=== PATIENT | male | born 1935 | race Caucasian/White ===

== ENCOUNTER 2017-02-01 17:40 | Inpatient (IN) | payer OTHER, BC ==
[~2017-02-01] VITALS: Ht 172.7 cm; Wt 105.0 kg
[~2017-02-01 17:40] MED LIST: ACET-1256 PO; ASPEC81 PO; ATV/1 PO; CETI10TA10 PO; CMD5 PO; CPR500 PO; DONE5TAB9 PO; FERR325T18 PO; FINA5TAB PO; FLM4 PO; FRS/40 PO; GLCSC750600 PO; LISI-725 PO; LPR25 PO; MEMA1CAP7 PO; MULT-506 PO; NRV5 PO; POTA10CA28 PO; RISP0.257 PO; ROPI0.25 PO; SERT50TA PO; SIMV20TA2 PO
[2017-02-01] MEDS ORDERED: CEFTRIAXONE SOD INJ 1 GM ADDVIAL IV STA (17:57)
--- NOTE | 2017-02-01 18:18 | DIAGNOSTIC IMAGING REPORT ---
CHEST ONE VIEW PORTABLE CLINICAL HISTORY: Fever. COMPARISON STUDY: Chest radiograph September 30, 2016. FINDINGS: There are median sternotomy wires. This study is compromised by motion artifact. Lung volumes are diminished. There is hazy left basilar opacity. There is pulmonary vascular congestion. IMPRESSION: 1. Study compromised by motion artifact. 2. Stable cardiomegaly. 3. Hazy left basilar opacity and possible small left pleural effusion. Radiographic follow-up is recommended. 4. Pulmonary vascular congestion without overt pulmonary edema. Electronically signed by: Tim Mitchell M.D. 02/01/2017 6:16 PM Dictated Date/Time: 02/01/2017 6:14 PM
[2017-02-01] MEDS ORDERED: ASPI81TA21 PO (18:21)
[2017-02-01] MEDS ORDERED: AMLO-110 PO (18:22)
[2017-02-01] MEDS ORDERED: METO25TA56 PO (18:22)
[2017-02-01] MEDS ORDERED: OXYC1CAP5 PO (18:38)
[2017-02-01] MEDS ORDERED: POTA20TA11 PO (18:38)
[2017-02-01] MEDS ORDERED: SERT1TAB68 PO (18:38)
[2017-02-01] MEDS ORDERED: FURO80TA63 PO (18:38)
[2017-02-01] MEDS ORDERED: WARF2TAB PO (18:38)
[2017-02-01] MEDS ORDERED: LSN40 PO (18:38)
[2017-02-01] MEDS ORDERED: WARF3TAB PO (18:38)
[2017-02-01] MEDS ORDERED: NTRGSL/4 UT (18:38)
[2017-02-01 18:43] LABS: BASO % 0.1 %; BASO ABS # 0.01 K/uL (0-0.2); COMPLETE YES; HEMATOCRIT 32.5 % (42-52); IG% 0.3 %; INR 2.3 (0.9-1.1); LYMPH % 4.3 %; LYMPH ABS # 0.66 K/uL (1.2-3.4); MEAN CELL VOLUME 92.6 fL (80-100); MEAN CORPUSCULAR HEMOGLOBIN 29.1 pg (25-34); MEAN CORPUSCULAR HGB CONC 31.4 g/dl (32-36); MEAN PLATELET VOLUME 9.9 fL (7.4-10.4); MONO % 7.7 %; NEUT % 87.6 %; PLATELET COUNT 129 K/uL (130-400); PROTHROMBIN TIME (PATIENT) 25.1 SECONDS (9.0-12.0); RED BLOOD COUNT 3.51 M/uL (4.7-6.1); WHITE BLOOD COUNT 15.31 K/uL (4.8-10.8)
[2017-02-01 18:44] LABS: ISTAT CREATININE 1.2 mg/dl (0.6-1.3); ISTAT HEMOGLOBIN 10.9 g/dl (14.0-18.0); ISTAT IONIZED CALCIUM 1.06 mmol/l (1.12-1.32)
--- NOTE | 2017-02-01 18:49 | EMERGENCY ROOM VISIT NOTE ---
History Report prepared by Brandie: Adeline Nelson Under the Supervision of: Pat GoldmanO. First contact with patient: 17:47 Chief Complaint: WEAKNESS Stated Complaint: WEAKNESS History of Present Illness The patient is a 81 year old male who presents to the Emergency Room with complaints of worsening weakness for the past couple of days. The patient is a resident at [facility]. Per staff there, the patient has had increased weakness and confusion. He has been much more tired than usual. Today he developed a fever with a temperature of 104. He has a chronic Carr in place secondary to BPH. His urine is cloudy today. He had a urine culture on 10/15 that grew out pansensitive E. coli and Klebsiella. The patient does not have any complaints at this time. He denies headache, chest pain, abdominal pain , and shortness of breath. His daughter states that he is typically much more alert and oriented. He was brought to the ED by ambulance. The history is limited secondary to the patient's dementia. Source of History: patient, family (daughter), fdc notes, nursing staff History Limited By: AMS Onset: a couple of days ago Position: other (global) Quality: other (weakness) Timing: worsening Associated Symptoms: + fevers, + urinary symptoms (cloudy urine), No SOB, No abdominal pain, No chest pain, No headache Review of Systems ROS is limited secondary to the patient's AMS. Past Medical & Surgical Medical Problems: (1) Alzheimers disease (2) Anemia in CKD (chronic kidney disease) (3) Anxiety (4) BPH w urinary obs/LUTS (5) CAD (coronary artery disease) (6) CKD (chronic kidney disease), stage III (7) Heart failure (8) HTN (hypertension) (9) Hyperlipidemia (10) Malignant neoplasm prostate (11) Mitral regurgitation (12) Osteoarthritis (13) Parkinsonism (14) Pneumonia (15) UTI (urinary tract infection) (16) Vascular dementia (17) Weakness Surgical Problems: (1) Hx of CABG (2) S/P coronary artery stent placement Family History Non-pertinent due to advanced age. Social History Smoking Status: Never Smoker Alcohol Use: none Drug Use: none Marital Status: Housing Status: assisted living Occupation Status: retired Current/Historical Medications Scheduled Acetaminophen (Tylenol), 1,000 MG PO TID Amlodipine (Norvasc), 5 MG PO QAM Aspirin Enteric Coated (Ecotrin Or Generic), 81 MG PO QAM Donepezil HCl (Aricept), 10 MG PO QPM Ferrous Gluconate (Ferrous Gluconate), 324 MG PO DAILY @ 1000 Finasteride (Proscar), 5 MG PO QPM Furosemide (Lasix), 40 MG PO DAILY AT 1400 Furosemide (Lasix), 80 MG PO QAM Lisinopril (Lisinopril), 40 MG PO QAM Lorazepam (Ativan), 1 MG PO DAILY AT 1600 Memantine Hcl (Namenda Xr), 28 MG PO QPM Metoprolol Tartrate (Lopressor) (Lopressor), 12.5 MG PO BID Multivitamin (Multivitamin), 1 TAB PO QAM Oxycodone Hcl (Oxycodone Hcl), 5 MG PO Q8 Potassium Chloride Microencaps (Potassium Chloride Cr), 20 MEQ PO TID Risperidone (Risperdal), 0.25 MG PO BID Ropinirole (Requip), 2 TABS PO TID [id number] Sertraline Hcl (Zoloft), 100 MG PO QAM Simvastatin (Zocor), 20 MG PO DAILY AT 1600 Warfarin Sodium (Coumadin), 2 MG PO QPM AT 2100 Warfarin Sodium (Coumadin), 3 MG PO QPM AT 2100 Scheduled PRN Nitroglycerin (Nitrostat), 0.4 MG UT PRN PRN for Chest Pain Allergies Coded Allergies: No Known Allergies (Verified , 02/01/17) Physical Exam Vital Signs Date Time Temp Pulse Resp B/P Pulse Ox O2 Delivery O2 Flow Rate FiO2 02/01/17 18:48 38.2 79 28 119/81 98 Nasal Cannula 2.0 02/01/17 18:10 87 02/01/17 17:50 91 Room Air 02/01/17 17:47 37.4 92 26 132/75 91 Room Air Physical Exam GENERAL: alert, sitting up in bed, chronically ill-appearing, disheveled, well nourished, no distress, non-toxic EYE EXAM: normal conjunctiva, PERRL and EOM's intact OROPHARYNX: no exudate, no erythema, lips, buccal mucosa, and tongue normal and mucous membranes are moist NECK: supple, no nuchal rigidity, no adenopathy, non-tender LUNGS: Clear to auscultation. Normal chest wall mechanics HEART: Irregularly irregular, no murmurs, S1 normal and S2 normal ABDOMEN: abdomen soft, distended, non-tender, normo-active bowel sounds, no masses, no rebound or guarding. BACK: Back is symmetrical on inspection and there is no deformity, no midline tenderness, no CVA tenderness. SKIN: no rashes and no bruising UPPER EXTREMITIES: upper extremities are grossly normal. No focal deficit with flexion or extension. LOWER EXTREMITIES: No pitting edema. Able to plantarflex and dorsiflex the toes NEURO EXAM: Alert, oriented to person but not place or time. Cranial nerves II- XII intact, normal speech, no weakness of arms, no weakness of legs. No drift. Finger to nose intact. Gross sensation intact. Medical Decision & Procedures ER Provider Diagnostic Interpretation: Radiology results as stated below per my review and the radiologist interpretation: CHEST ONE VIEW PORTABLE CLINICAL HISTORY: Fever. COMPARISON STUDY: Chest radiograph September 30, 2016. FINDINGS: There are median sternotomy wires. This study is compromised by motion artifact. Lung volumes are diminished. There is hazy left basilar opacity. There is pulmonary vascular congestion. IMPRESSION: 1. Study compromised by motion artifact. 2. Stable cardiomegaly. 3. Hazy left basilar opacity and possible small left pleural effusion. Radiographic follow-up is recommended. 4. Pulmonary vascular congestion without overt pulmonary edema. Electronically signed by: Tim Mitchell M.D. 02/01/2017 6:16 PM Dictated Date/Time: 02/01/2017 6:14 PM Laboratory Results 02/01/17 18:15 Red Blood Count 3.51, Mean Corpuscular Volume 92.6, Mean Corpuscular Hemoglobin 29.1, Mean Corpuscular Hemoglobin Concent 31.4, Mean Platelet Volume 9.9, Neutrophils (%) (Auto) 87.6, Lymphocytes (%) (Auto) 4.3, Monocytes (%) (Auto) 7.7, Eosinophils (%) (Auto) 0.0, Basophils (%) (Auto) 0.1, Neutrophils # (Auto) 13.41, Lymphocytes # (Auto) 0.66, Monocytes # (Auto) 1.18, Eosinophils # (Auto) 0.00, Basophils # (Auto) 0.01 4/5/17 18:15 Test 02/01/17 18:15 02/01/17 18:27 02/01/17 18:31 02/01/17 18:58 White Blood Count 15.31 K/uL (4.8-10.8) Red Blood Count 3.51 M/uL (4.7-6.1) Hemoglobin 10.2 g/dL (14.0-18.0) Hematocrit 32.5 % (42-52) Mean Corpuscular Volume 92.6 fL (80-100) Mean Corpuscular Hemoglobin 29.1 pg (25-34) Mean Corpuscular Hemoglobin Concent 31.4 g/dl (32-36) Platelet Count 129 K/uL (130-400) Mean Platelet Volume 9.9 fL (7.4-10.4) Neutrophils (%) (Auto) 87.6 % Lymphocytes (%) (Auto) 4.3 % Monocytes (%) (Auto) 7.7 % Eosinophils (%) (Auto) 0.0 % Basophils (%) (Auto) 0.1 % Neutrophils # (Auto) 13.41 K/uL (1.4-6.5) Lymphocytes # (Auto) 0.66 K/uL (1.2-3.4) Monocytes # (Auto) 1.18 K/uL (0.11-0.59) Eosinophils # (Auto) 0.00 K/uL (0-0.5) Basophils # (Auto) 0.01 K/uL (0-0.2) RDW Standard Deviation 57.9 fL (36.4-46.3) RDW Coefficient of Variation 17.0 % (11.5-14.5) Immature Granulocyte % (Auto) 0.3 % Immature Granulocyte # (Auto) 0.05 K/uL (0.00-0.02) Prothrombin Time 25.1 SECONDS (9.0-12.0) Prothromb Time International Ratio 2.3 (0.9-1.1) Est Creatinine Clear Calc Drug Dose 46.0 ml/min Estimated GFR () 49.5 Estimated GFR (Non- 42.7 BUN/Creatinine Ratio 15.9 (10-20) Calcium Level 8.3 mg/dl (8.5-10.1) Magnesium Level 2.1 mg/dl (1.8-2.4) Total Bilirubin 0.6 mg/dl (0.2-1) Direct Bilirubin 0.2 mg/dl (0-0.2) Aspartate Amino Transf (AST/SGOT) 19 U/L (15-37) Alanine Aminotransferase (ALT/SGPT) 30 U/L (12-78) Alkaline Phosphatase 74 U/L (45-117) Total Creatine Kinase 31 U/L (39-308) Creatine Kinase MB < 0.5 ng/ml (0.5-3.6) Creatine Kinase MB Ratio (0-3.0) Troponin I 0.035 ng/ml (0-0.045) Total Protein 7.8 gm/dl (6.4-8.2) Albumin 2.6 gm/dl (3.4-5.0) Bedside Hemoglobin 10.9 g/dl (14.0-18.0) Bedside Hematocrit 32 % (42-52) Bedside Sodium 145 mEq/L (135-144) Bedside Potassium 3.3 mEq/L (3.3-5.0) Bedside Chloride 102 mEq/L (101-112) Bedside Total CO2 25 mEq/l (24-31) Anion Gap 23.0 mmol/L (16-25) Bedside Blood Urea Nitrogen 23 mg/dl (7-18) Bedside Creatinine 1.2 mg/dl (0.6-1.3) Bedside Glucose (other) 224 mg/dl (70-99) Bedside Ionized Calcium (Bere) 1.06 mmol/l (1.12-1.32) Bedside Lactic Acid Venous 2.72 mmol/L (0.90-1.70) Urine Color YELLOW Urine Appearance CLOUDY (CLEAR) Urine pH 5.0 (4.5-7.5) Urine Specific Linn 1.018 (1.000-1.030) Urine Protein TRACE (NEG) Urine Glucose (UA) NEG (NEG) Urine Ketones NEG (NEG) Urine Occult Blood 2+ (NEG) Urine Nitrite NEG (NEG) Urine Bilirubin NEG (NEG) Urine Urobilinogen NEG (NEG) Urine Leukocyte Esterase LARGE (NEG) Urine WBC (Auto) >30 /hpf (0-5) Urine RBC (Auto) 5-10 /hpf (0-4) Urine Hyaline Casts (Auto) 10-30 /lpf (0-5) Urine Epithelial Cells (Auto) 5-10 /lpf (0-5) Urine Bacteria (Auto) 2+ (NEG) Urine Pathogenic Casts /lpf (0) Urine Mucus PRESENT (NONE PRSENT) Laboratory results per my review. Medications Administered Medications (Trade) Dose Ordered Sig/María Route Start Time Stop Time Status Last Admin Dose Admin Ceftriaxone Sodium (Rocephin Inj) 1 gm NOW STAT IV 02/01/17 17:57 02/01/17 17:59 DC 02/01/17 18:47 1 GM Levofloxacin (Levaquin / D5W) 750 mg NOW ONCE IV 02/01/17 19:30 02/01/17 19:31 DC 02/01/17 19:56 750 MG Acetaminophen 650 mg 650 mg NOW STAT CA 02/01/17 20:21 02/01/17 20:22 DC 02/01/17 21:15 650 MG Sodium Chloride (Nss 1000ml) 1,000 ml @ 75 mls/hr [id number] IV 02/01/17 20:13 03/03/17 20:12 02/01/17 23:41 75 MLS/HR ECG Indication: altered mental status, weakness Rate (beats per minute): 86 Rhythm: atrial fibrillation Findings: RBBB, ST depression (Lateral), left axis deviation ED Course ED COURSE: Vital signs were reviewed and showed hypoxic. The patients medical record was reviewed The above diagnostic studies were performed and reviewed. ED treatments and interventions as stated above. 1746: The patient was evaluated in room C7. A complete history and physical examination was performed. 1756: Rocephin 1 gm IV 1806: I reassessed the patient at this time. His daughter was at the bedside. She states that he is normally able to feed himself and is typically much more interactive. 1815: I updated the patient and his daughter. 1921: I spoke with Dr. Cruz. We discussed the patient's results and treatment plan. The patient will be evaluated by the [facility] for further management. 1929: Levofloxacin 750 mg IV 1931: Upon reevaluation, the patient is resting comfortably. I discussed my findings with the patient's daughter and she understands and agrees with the treatment plan. Based on the patients age, coexisting illnesses, exam and lab findings the decision to treat as an inpatient was made. The patient remained stable while under my care. The patient will be evaluated for further management. Medical Decision Differential diagnosis: Etiologies such as viral syndrome, otitis, pharyngitis, pneumonia, influenza, meningitis, urinary tract infection, sepsis, bacteremia, as well as others were entertained. Patient is an 81-year-old male who presents the ER from an assisted living facility for weakness and lethargy. Upon presentation he is found to be hypoxic. Daughter notes that he is much more lethargic than usual. She notes that at the fdc he has been weak, unable to feed himself and hypoxic. Labs show a leukocytosis of 15,000 along with a lactate of 2.7. BMP shows mild hypokalemia. LFTs along with bilirubin was unremarkable. Troponin was detectable but not positive. Lactate was 2.7. INR was 2.3. UA was clearly infected with a chronic indwelling Carr. Chest x-ray did suggest a consolidation. He was covered with Rocephin and Levaquin. Patient was given a bolus normal saline. He remained stable in the ER and was admitted to internal medicine for sepsis. CT head was negative. Consults Time Called: 1918 Consulting Physician: Dr. Cruz Returned Call: [address] Cruz. We discussed the patient's results and treatment plan. The patient will be evaluated by the [facility] for further management. Impression Primary Impression: Sepsis Additional Impressions: UTI (urinary tract infection) Pneumonia Scribe Attestation The scribe's documentation has been prepared under my direction and personally reviewed by me in its entirety. I confirm that the note above accurately reflects all work, treatment, procedures, and medical decision making performed by me. Departure Information Dispostion Being Evaluated By Hospitalist Referrals Earl Lombardo MD (PCP) Patient Instructions My [facility] Problem Qualifiers Primary Impression: Sepsis Sepsis type: sepsis due to unspecified organism Qualified Codes: A41.9 - Sepsis, unspecified organism Additional Impressions: UTI (urinary tract infection) Urinary tract infection type: catheter-associated UTI Indwelling urinary catheter type: unspecified Encounter type: initial encounter Qualified Codes : T83.511A - Infection and inflammatory reaction due to indwelling urethral catheter, initial encounter; N39.0 - Urinary tract infection, site not specified Pneumonia Pneumonia type: due to unspecified organism Laterality: unspecified laterality Lung location: unspecified part of lung Qualified Codes: J18.9 - Pneumonia, unspecified organism
[2017-02-01 18:53] LABS: ALT/SGPT 30 U/L (12-78); AST/SGOT 19 U/L (15-37); BLOOD UREA NITROGEN 24 mg/dl (7-18); BUN/CREATININE RATIO 15.9 (10-20); CALCIUM 8.3 mg/dl (8.5-10.1); CARBON DIOXIDE 28 mmol/L (21-32); CHLORIDE 107 mmol/L (98-107); GLUCOSE 221 mg/dl (70-99); MAGNESIUM 2.1 mg/dl (1.8-2.4); POTASSIUM 3.3 mmol/L (3.5-5.1); SODIUM 145 mmol/L (136-145)
[2017-02-01 18:58] LABS: ALKALINE PHOSPHATASE 74 U/L (45-117)
[2017-02-01] MEDS ORDERED: ACETAMINOPHEN 500 MG TAB PO STA (19:05)
[2017-02-01 19:08] LABS: MANUAL MICROSCOPIC REQUIRED? NO; REVIEW REQ? YES; URINE APPEARANCE CLOUDY (CLEAR); URINE BILIRUBIN NEG (NEG); URINE COLOR YELLOW; URINE NITRITE NEG (NEG); URINE SPECIFIC GRAVITY 1.018 (1.000-1.030); UROBILINOGEN NEG (NEG); ZZURINE CULT IF INDIC CATH YES
[2017-02-01 19:21] LABS: URINE MUCUS PRESENT (NONE PRSENT)
[2017-02-01] MEDS ORDERED: LEVAQUIN 750MG / 150ML D5W IV ONE (19:30)
[2017-02-01] MEDS ORDERED: ONDANSETRON INJ 2 MG/ML 2 ML VIAL IV PRN (20:15)
[2017-02-01] MEDS ORDERED: MAGNESIUM HYDROXIDE SUSP 30 ML UDC PO PRN (20:15)
[2017-02-01] MEDS ORDERED: ALUMINUM/MAGNESIUM/SIMETH (MAALOX MAX) 30 ML UDC PO PRN (20:15)
[2017-02-01] MEDS ORDERED: NITROGLYCERIN 0.4 MG SL PER TAB CHARGE SL PRN (20:15)
[2017-02-01] MEDS ORDERED: POLYETHYLENE (MIRALAX) 17 GM PACK PO PRN (20:15)
[2017-02-01] MEDS ORDERED: ACETAMINOPHEN 650 MG SUPP PR STA (20:21)
[2017-02-01] MEDS: METOPROLOL TARTRATE 25 MG TAB PO SCH (21:00)
[2017-02-01] MEDS ORDERED: VANCOMYCIN CONSULT ACTIVE PRN (21:00)
[2017-02-01] MEDS: ROPINIROLE HCL 0.25 MG TAB PO SCH (21:00)
[2017-02-01] MEDS: FINASTERIDE 5 MG TAB PO SCH (21:00)
[2017-02-01] MEDS ORDERED: PIPERACILLIN/TAZOBACTAM 4.5 GM/100ML D5W IV SCH (21:00)
[2017-02-01] MEDS ORDERED: PIPERACILL/TAZOBAC CONSULT ACTIVE PRN (21:00)
[2017-02-01] MEDS: POTASSIUM CHLORIDE 20 MEQ TABCR PO SCH (21:00)
[2017-02-01] MEDS ORDERED: VANCOMYCIN INJ 1,000 MG in SODIUM CHLORIDE 0.9% 250ML 250 ML IV SCH (21:00)
[2017-02-01] MEDS: DONEPEZIL HCL 5 MG TAB PO SCH (21:00)
[2017-02-01] MEDS: RISPERIDONE 0.5 MG TAB PO SCH (21:00)
--- NOTE | 2017-02-01 21:02 | History and Physical ---
History & Physical Date & Time of Service: Feb 01, 2017 at 20:49 Chief Complaint: Weakness Primary Care Physician: Earl Lombardo MD History of Present Illness Source: family This is an 81 y/o M with a pmh of HTN, CAD s/p CABG, Vascular dementia, questionable parkinsons, sleep apnea, AFib, who presents from [facility] after being found with altered mental status. History is obtained entirely from Family and chart review. They report that he has recently been undergoing physical therapy at his residence but was discharged due to concerns of decline in mental status and inability to participate in the activities. Over the last few days, he has stopped feeding himself and is disoriented. There was also reports by nurses about shortness of breath. Supposedly he had a U/a done last month that was infected vs. contaminated. But because he was asymptomatic, he was not treated. Yesterday he was noted by his (who also lives at [place] with him) to be sitting in his chair, somnolent and had a temp of 102. She caleld her daughter and decided he should be brought to the ER. He has a chronic Carr for about 2 years now after losing ability to urinate They also report that he has Prostate cancer for several years but did not pursue treatment. No one has been following him for this. ROS unobtainable from patient. Past Medical/Surgical History Medical Problems: (1) Alzheimers disease Status: Chronic (2) Anemia in CKD (chronic kidney disease) Status: Chronic (3) Anxiety Status: Chronic (4) BPH w urinary obs/LUTS Status: Chronic (5) CAD (coronary artery disease) Status: Chronic (6) CKD (chronic kidney disease), stage III Status: Chronic (7) Heart failure Permanent Comment: EF 55-60% per echo 03/2014, grade 1 diastolic dysfunction Status: Chronic (8) HTN (hypertension) Status: Chronic (9) Hyperlipidemia Status: Chronic (10) Malignant neoplasm prostate Status: Chronic (11) Mitral regurgitation Permanent Comment: mild-mod per echo 03/2014 Status: Chronic (12) Osteoarthritis Status: Chronic (13) Parkinsonism Status: Chronic (14) Vascular dementia Status: Chronic Surgical Problems: (1) Hx of CABG Status: Chronic (2) S/P coronary artery stent placement Permanent Comment: stent to RCA Status: Chronic Social History Smoking Status: Never Smoker Drug Use: none Marital Status: Housing status: lives with significant other Occupational Status: retired Immunizations History of Influenza Vaccine: Yes Influenza Vaccine Date: Aug 07, 2012 History of Tetanus Vaccine?: Unknown History of Pneumococcal: No History of Hepatitis B Vaccine: Unknown Multi-Drug Resistant Organisms History of MDRO: No Allergies Coded Allergies: No Known Allergies (Verified , 02/01/17) Home Medications Scheduled Acetaminophen (Tylenol), 1,000 MG PO TID Amlodipine (Norvasc), 5 MG PO QAM Aspirin Enteric Coated (Ecotrin Or Generic), 81 MG PO QAM Donepezil HCl (Aricept), 10 MG PO QPM Ferrous Gluconate (Ferrous Gluconate), 324 MG PO DAILY @ 1000 Finasteride (Proscar), 5 MG PO QPM Furosemide (Lasix), 40 MG PO DAILY AT 1400 Furosemide (Lasix), 80 MG PO QAM Lisinopril (Lisinopril), 40 MG PO QAM Lorazepam (Ativan), 1 MG PO DAILY AT 1600 Memantine Hcl (Namenda Xr), 28 MG PO QPM Metoprolol Tartrate (Lopressor) (Lopressor), 12.5 MG PO BID Multivitamin (Multivitamin), 1 TAB PO QAM Oxycodone Hcl (Oxycodone Hcl), 5 MG PO Q8 Potassium Chloride Microencaps (Potassium Chloride Cr), 20 MEQ PO TID Risperidone (Risperdal), 0.25 MG PO BID Ropinirole (Requip), 2 TABS PO TID [id number] Sertraline Hcl (Zoloft), 100 MG PO QAM Simvastatin (Zocor), 20 MG PO DAILY AT 1600 Warfarin Sodium (Coumadin), 2 MG PO QPM AT 2100 Warfarin Sodium (Coumadin), 3 MG PO QPM AT 2100 Scheduled PRN Nitroglycerin (Nitrostat), 0.4 MG UT PRN PRN for Chest Pain Review of Systems ROS unobtainable Physical Exam Vital Signs Date Time Temp Pulse Resp B/P Pulse Ox O2 Delivery O2 Flow Rate FiO2 02/01/17 18:48 38.2 79 28 119/81 98 Nasal Cannula 2.0 02/01/17 18:10 87 02/01/17 17:50 91 Room Air 02/01/17 17:47 37.4 92 26 132/75 91 Room Air General Appearance: no apparent distress, + pertinent finding (patient is arousable to verbal stimuli but doesnt verbalize much) Head: normocephalic, atraumatic Eyes: PERRL, EOMI Neck: supple, no adenopathy, thyroid normal Respiratory/Chest: no respiratory distress, no accessory muscle use, + decreased breath sounds, + crackles Cardiovascular: no edema, no murmur, normal peripheral pulses, + irregularly irregular Abdomen/GI: normal bowel sounds, non tender, soft Extremities/Musculoskelatal: no pedal edema Neurologic/Psych: + disoriented, + pertinent finding (unable to assess) Diagnostics Laboratory Results Results Past 24 Hours Test 02/01/17 18:15 02/01/17 18:27 02/01/17 18:31 02/01/17 18:58 Range/Units White Blood Count 15.31 4.8-10.8 K/uL Red Blood Count 3.51 4.7-6.1 M/uL Hemoglobin 10.2 14.0-18.0 g/dL Hematocrit 32.5 42-52 % Mean Corpuscular Volume 92.6 80-100 fL Mean Corpuscular Hemoglobin 29.1 25-34 pg Mean Corpuscular Hemoglobin Concent 31.4 32-36 g/dl Platelet Count 129 130-400 K/uL Mean Platelet Volume 9.9 7.4-10.4 fL Neutrophils (%) (Auto) 87.6 % Lymphocytes (%) (Auto) 4.3 % Monocytes (%) (Auto) 7.7 % Eosinophils (%) (Auto) 0.0 % Basophils (%) (Auto) 0.1 % Neutrophils # (Auto) 13.41 1.4-6.5 K/uL Lymphocytes # (Auto) 0.66 1.2-3.4 K/uL Monocytes # (Auto) 1.18 0.11-0.59 K/uL Eosinophils # (Auto) 0.00 0-0.5 K/uL Basophils # (Auto) 0.01 0-0.2 K/uL RDW Standard Deviation 57.9 36.4-46.3 fL RDW Coefficient of Variation 17.0 11.5-14.5 % Immature Granulocyte % (Auto) 0.3 % Immature Granulocyte # (Auto) 0.05 0.00-0.02 K/uL Prothrombin Time 25.1 9.0-12.0 SECONDS Prothromb Time International Ratio 2.3 0.9-1.1 Sodium Level 145 136-145 mmol/L Potassium Level 3.3 3.5-5.1 mmol/L Chloride Level 107 98-107 mmol/L Carbon Dioxide Level 28 21-32 mmol/L Anion Gap 10.0 23.0 16-25 mmol/L Blood Urea Nitrogen 24 7-18 mg/dl Creatinine 1.50 0.60-1.40 mg/dl Est Creatinine Clear Calc Drug Dose 46.0 ml/min Estimated GFR () 49.5 Estimated GFR (Non- 42.7 BUN/Creatinine Ratio 15.9 10-20 Random Glucose 221 70-99 mg/dl Calcium Level 8.3 8.5-10.1 mg/dl Magnesium Level 2.1 1.8-2.4 mg/dl Total Bilirubin 0.6 0.2-1 mg/dl Direct Bilirubin 0.2 0-0.2 mg/dl Aspartate Amino Transf (AST/SGOT) 19 15-37 U/L Alanine Aminotransferase (ALT/SGPT) 30 12-78 U/L Alkaline Phosphatase 74 45-117 U/L Total Creatine Kinase 31 39-308 U/L Creatine Kinase MB < 0.5 0.5-3.6 ng/ml Creatine Kinase MB Ratio 0-3.0 Troponin I 0.035 0-0.045 ng/ml Total Protein 7.8 6.4-8.2 gm/dl Albumin 2.6 3.4-5.0 gm/dl Bedside Hemoglobin 10.9 14.0-18.0 g/dl Bedside Hematocrit 32 42-52 % Bedside Sodium 145 135-144 mEq/L Bedside Potassium 3.3 3.3-5.0 mEq/L Bedside Chloride 102 101-112 mEq/L Bedside Total CO2 25 24-31 mEq/l Bedside Blood Urea Nitrogen 23 7-18 mg/dl Bedside Creatinine 1.2 0.6-1.3 mg/dl Bedside Glucose (other) 224 70-99 mg/dl Bedside Ionized Calcium (Bere) 1.06 1.12-1.32 mmol/l Bedside Lactic Acid Venous 2.72 0.90-1.70 mmol/L Urine Color YELLOW Urine Appearance CLOUDY CLEAR Urine pH 5.0 4.5-7.5 Urine Specific [place] 1.018 1.000-1.030 Urine Protein TRACE NEG Urine Glucose (UA) NEG NEG Urine Ketones NEG NEG Urine Occult Blood 2+ NEG Urine Nitrite NEG NEG Urine Bilirubin NEG NEG Urine Urobilinogen NEG NEG Urine Leukocyte Esterase LARGE NEG Urine WBC (Auto) >30 0-5 /hpf Urine RBC (Auto) 5-10 0-4 /hpf Urine Hyaline Casts (Auto) 10-30 0-5 /lpf Urine Epithelial Cells (Auto) 5-10 0-5 /lpf Urine Bacteria (Auto) 2+ NEG Urine Pathogenic Casts 0 /lpf Urine Mucus PRESENT NONE PRSENT Microbiology Results 02/01/17 Blood Culture, Received Pending 02/01/17 Blood Culture, Received Pending 02/01/17 Urine Culture, Received Pending Impression Assessment and Plan Metabolic encephalopathy likely 2/2 UTI + HAP/Aspiration pneumonia (meets sirs criteria) However, will do a Head Ct to rule out acute hemorrhage as a cause of AMS Zosyn, Vancomycin IV NSS UC, BC, SC pending X-ray with left basilar opacity Failed Dysphagia screen Speech eval- i suspect there is a component of dementia and will need an eval for dietary recommendations going forward - michael if aspiration pneumonia Keep NPO until patient is more alert Aspiration precautions Hypokalemia 20 meq- replaced Recheck AM Ambulatory dysfunction PT OT Afib, rate controlled Continue Coumadin, lopressor Daily inr HTN: Continue amlodipine, Lisinopril, Lopressor Chronic pain Hold Oxycodone with AMS Dementia Hold Memantine, continue Donepazil, Risperidone RLS: Continue Requip Depression/Anxiety Continue Sertraline Hold home ativan BPH Continue finasteride DVT proph Coumadin Code: DNR VTE Prophylaxis VTE Risk Assessment Done? Y/N: Yes Risk Level: Moderate Assessment and Plan Attending Addendum: I have physically seen and examined this patient, have directed their medical care, have supervised the medical residents activities, and agree with the H&P as noted above, with the following changes: The patient is awake to verbal stimuli, but remains disoriented, lying in bed and in no acute distress. HEENT--PERRL, EOMI, mucous membranes and oropharynx dry. Neck--supple, no JVD or bruits, thyroid normal, trachea midline, no adenopathy. Heart--irregularly irregular, no murmurs, rubs or gallops. Lungs--decreased breath sounds with crackles at the bases bilaterally, no respiratory distress, no accessory muscle use. Abdomen--normal bowel sounds and soft, nontender and nondistended, no hernias or masses, no organomegaly. Extremities--no cyanosis, clubbing or edema. There are good distal pulses b/l. Dermatologic--normal skin turgor, normal color, warm and dry, no abnormal lymph nodes, no rash. Neurologic--cranial nerves II through XII grossly intact, motor and sensory examination normal. Rheumatologic--normal range of motion, nontender, muscles and joints. Psychiatric--disoriented Assessment and Plan: Metabolic encephalopathy--infectious disease: UTI, aspiration pneumonia left lower lobe, SIRS. We'll place on vancomycin IV per renal dosing, Zosyn 3.375 mg IV every 8 hours, IV fluids, follow urine culture, sputum culture and blood culture. Patient did fail his dysphagia screen in the ED so will be nothing by mouth. We'll consult PT, OT and speech therapy. Atrial fibrillation/hypertension-we will hold amlodipine, lisinopril and Lopressor due to nothing by mouth status. Place on Lopressor 5 mg IV every 4 hours hold parameters. Dementia/anxiety/depression--hold memantine, donepezil and risperidone. We'll have lorazepam 0.5 mg IV every 4 hours when necessary available until taking by mouth. BPH--hold finasteride until taking by mouth.
[2017-02-01 21:30] VITALS: BP 116/65; PULSE 74; TEMP 37.2; O2SAT 96; Ht 172.7 cm; Wt 105.0 kg
[2017-02-01] MEDS ORDERED: VANCOMYCIN INJ 2,300 MG in SODIUM CHLORIDE 0.9% 500ML 500 ML IV SCH (21:30)
--- NOTE | 2017-02-01 21:54 | DIAGNOSTIC IMAGING REPORT ---
CT OF THE HEAD WITHOUT CONTRAST CLINICAL HISTORY: Altered mental status. COMPARISON STUDY: Head CT March 31, 2014 and MRI of the brain October 03, 2016. CT DOSE: 687.98 mGy.cm TECHNIQUE: Helical axial images of the head were obtained without IV contrast. Automated exposure control was utilized for the study. FINDINGS: No acute intracranial hemorrhage, midline shift or mass effect is present. Ventricular system is stable. Basilar cisterns are patent. There are no extra-axial collections. Moderate white matter hypodensity suggests small vessel disease. There are no findings to suggest acute dural sinus thrombosis or acute territorial infarct. There is no calvarial fracture. Visualized portions of the sinuses and the mastoid air cells are clear. IMPRESSION: No acute intracranial findings. Electronically signed by: Tim Mitchell M.D. 02/01/2017 9:53 PM Dictated Date/Time: 02/01/2017 9:51 PM
[2017-02-01 23:15] VITALS: BP 113/65; PULSE 75; TEMP 36.9; O2SAT 96
[2017-02-01] MEDS: POTASSIUM CHLR 10 MEQ / WTR 10 MEQ in PREMIXED WATER 100 ML IV SCH (23:41)
[2017-02-01] MEDS: SODIUM CHLORIDE 0.9% 1000ML 1,000 ML IV SCH (23:41)
[2017-02-02] VITALS (7 sets, daily range): BP systolic 121–174; BP diastolic 71–91; PULSE 68–93; TEMP 36.6–37.8; O2SAT 93–98
[2017-02-02] MEDS: POTASSIUM CHLR 10 MEQ / WTR 10 MEQ in PREMIXED WATER 100 ML IV SCH (01:28)
[2017-02-02] MEDS: PIPERACILL/TAZOBAC IV 4.5 GM in DEXTROSE 5% 100ML 100 ML IV SCH ×3 (01:28→18:28)
[2017-02-02 06:34] LABS: INR 2.3 (0.9-1.1); PROTHROMBIN TIME (PATIENT) 25.7 SECONDS (9.0-12.0)
[2017-02-02 06:48] LABS: BUN/CREATININE RATIO 19.5 (10-20); CALCIUM 8.3 mg/dl (8.5-10.1); CREATININE 1.3 mg/dl (0.60-1.40); POTASSIUM 3.6 mmol/L (3.5-5.1)
[2017-02-02 06:53] LABS: FERRITIN 328.3 ng/ml (8.0-388.0)
[2017-02-02 07:18] LABS: BASO % 0.1 %; BASO ABS # 0.01 K/uL (0-0.2); COMPLETE YES; EOS % 0.1 %; HEMATOCRIT 32.5 % (42-52); IG% 0.2 %; LYMPH % 10.7 %; LYMPH ABS # 1.33 K/uL (1.2-3.4); MEAN CELL VOLUME 92.9 fL (80-100); MEAN CORPUSCULAR HEMOGLOBIN 28.3 pg (25-34); MEAN CORPUSCULAR HGB CONC 30.5 g/dl (32-36); MEAN PLATELET VOLUME 10.3 fL (7.4-10.4); MONO % 12.1 %; NEUT % 76.8 %; PLATELET COUNT 122 K/uL (130-400)
--- NOTE | 2017-02-02 08:09 | Clinical Documentation Query ---
QUERY 1 OF [address] SANDS, "Meets SIRS criteria" cannot be coded to Sepsis In your clinical opinion is this patient being managed for: ( x ) Sepsis in the setting of UTI and pneumonia ( ) Other explanation of clinical findings (Please Explain) ( ) Unable to determine (Please Define) ( ) Need to Discuss ( ) Not Agree The medical record reflects the following clinical findings, treatment, and risk factors. Clinical Indicators: 81 yo male presenting with worsening weakness and confusion. Diagnosed with UTI and pneumonia. WBC 15.31, glucose 221(not diabetic). Reportedly Temp 104 at assisted living, ER VS 37.2-92-26, 132/75, 91% on RA. Noted in H/P to meet SIRS criteria Treatment: IV rocephin, IV levaquin, IV fluids, pending blood, urine and sputum cx, IV vancomycin, IV zosyn, O2 support, tele monitoring Risk Factors: age, pneumonia, UTI, chronic macario catheter QUERY 2 OF 3 In your clinical opinion is this patient being managed for: (x ) UTI likely/possibly due to chronic macario catheter ( ) Other explanation of clinical findings (Please Explain) ( ) Unable to determine (Please Define) ( ) Need to Discuss ( ) Not Agree The medical record reflects the following clinical findings, treatment, and risk factors. Clinical Indicators: UA LE+, WBC >30, bacteria 2+, noted to have had prior UTI (12/11/16) with Ecoli and klebsiella. Treatment: UA cx pending, IV Zosyn/Vancomycin/levaquin and rocephin, IV fluids Risk Factors: chronic macario catheter d/t BPH Considering the importance of preventing and tracking CAUTIs, if the patient has an indwelling catheter and a UTI, the provider should be queried regarding the cause of the UTI QUERY 3 OF 3 In your clinical opinion is this patient being managed for: ( ) Chronic diastolic CHF ( x ) Other explanation of clinical findings (Please Explain) ( ) Unable to determine (Please Define) ( ) Need to Discuss ( ) Not Agree The medical record reflects the following clinical findings, treatment, and risk factors. Clinical Indicators:H/P indicates pt with hx of chronic heart failure and 2014 ECHO with EF 55-60%, grade 1 diastolic dysfunction. Treatment: chronic tx with norvasc, lasix, lisinopril and lopressor Risk Factors: age, CKD stage III, HTN, CAD, A fib Severity-adjusted DRGs require coding specificity. "Congestive" heart failure is a non-specific diagnosis. Documentation should specify "acute vs. chronic" and "systolic vs. diastolic." Please clarify and document your clinical opinion in the progress notes and discharge summary. Terms such as "probable", "suspected", "likely", "questionable", "possible", or "still to be ruled out" are acceptable. IF IN AGREEMENT, YOU MUST DOCUMENT ABOVE DIAGNOSTIC STATEMENT IN DAILY PROGRESS NOTES AND DISCHARGE SUMMARY. This document is not part of the patient's record. Thank You, Carrie Quiroz, [phone]
[2017-02-02] MEDS ORDERED: WARFARIN SOD 2 MG TAB PO SCH (09:00)
[2017-02-02] MEDS ORDERED: WARFARIN SOD 3 MG TAB PO SCH (09:00)
[2017-02-02] MEDS: SIMVASTATIN 20 MG TAB PO SCH (11:10)
[2017-02-02] MEDS: RISPERIDONE 0.5 MG TAB PO SCH ×2 (11:10→19:58)
[2017-02-02] MEDS: SERTRALINE HCL 100 MG TAB PO SCH (11:10)
[2017-02-02] MEDS: LISINOPRIL 40 MG TAB PO SCH (11:11)
[2017-02-02] MEDS: FUROSEMIDE 80 MG TAB PO SCH (11:11)
[2017-02-02] MEDS: METOPROLOL TARTRATE 25 MG TAB PO SCH ×2 (11:11→19:53)
[2017-02-02] MEDS: AMLODIPINE BESYLATE 5 MG TAB PO SCH (11:11)
[2017-02-02] MEDS: POTASSIUM CHLORIDE 20 MEQ TABCR PO SCH ×3 (11:11→19:56)
[2017-02-02] MEDS: ASPIRIN 81 MG ECTAB PO SCH (11:12)
[2017-02-02] MEDS: FERROUS GLUCONATE 324 MG TAB PO SCH (11:12)
--- NOTE | 2017-02-02 13:30 | Progress Note ---
Subjective Date of Service: Feb 02, 2017. Subjective Pt evaluation today including: conversation w/ patient, physical exam, chart review No CP or SOB Problem List Medical Problems: (1) CHF (congestive heart failure) Status: Acute (2) New onset a-fib Status: Acute (3) Sepsis Status: Acute Review of Systems Respiratory: No cough, No dyspnea at rest, No dyspnea on exertion, No hemoptysis, No problem reported, No see HPI, No shortness of breath, No sputum, No wheezing Cardiac: No PND, No chest pain, No claudication, No edema, No orthopnea, No palpitations, No problem reported, No see HPI Abdomen: No GI bleeding, No constipation, No diarrhea, No nausea, No pain, No problem reported, No see HPI, No vomiting Medications Medications (Trade) Dose Ordered Sig/María Route Start Time Stop Time Status Last Admin Dose Admin Ceftriaxone Sodium (Rocephin Inj) 1 gm NOW STAT IV 02/01/17 17:57 02/01/17 17:59 DC 02/01/17 18:47 1 GM Levofloxacin (Levaquin / D5W) 750 mg NOW ONCE IV 02/01/17 19:30 02/01/17 19:31 DC 02/01/17 19:56 750 MG Acetaminophen 650 mg 650 mg NOW STAT TX 02/01/17 20:21 02/01/17 20:22 DC 02/01/17 21:15 650 MG Sodium Chloride 1,000 ml @ 75 mls/hr [id number] IV 02/01/17 20:13 03/03/17 20:12 02/01/17 23:41 75 MLS/HR Piperacillin Sod/ Tazobactam Sod 4.5 gm/Dextrose 120 ml @ 28.75 mls/ hr Q8H IV 02/02/17 02:00 02/11/17 23:59 02/02/17 01:28 28.75 MLS/HR Potassium Chloride/Prmx (Kcl 10 Meq / Wtr/Premixed Water) 100 ml @ 100 mls/hr Q1H IV 02/01/17 22:00 02/01/17 23:59 DC 02/02/17 01:28 100 MLS/HR Piperacillin Sod/ Tazobactam Sod 4.5 gm 4.5 gm 2100 IV 02/01/17 21:00 4/5/17 21:30 DC 02/01/17 22:00 4.5 GM Vancomycin HCl/ Sodium Chloride (Vancomycin Inj/ Nss 500ml) 546 ml @ 200 mls/hr 2130 IV 02/01/17 21:30 02/02/17 00:14 DC 02/01/17 22:04 200 MLS/HR Objective Vital Signs Date Time Temp Pulse Resp B/P Pulse Ox O2 Delivery O2 Flow Rate FiO2 02/02/17 07:13 36.6 77 20 144/81 98 Nasal Cannula 2.0 02/02/17 04:00 Nasal Cannula 3.0 02/02/17 03:05 36.8 74 20 121/71 97 Nasal Cannula 3.0 02/02/17 00:00 Nasal Cannula 3.0 02/01/17 23:15 36.9 75 24 113/65 96 Nasal Cannula 2.0 02/01/17 21:30 37.2 74 20 116/65 96 Nasal Cannula 2.0 02/01/17 21:00 38.4 90 32 126/77 97 Nasal Cannula 3.0 02/01/17 18:48 38.2 79 28 119/81 98 Nasal Cannula 2.0 02/01/17 18:10 87 02/01/17 17:50 91 Room Air 02/01/17 17:47 37.4 92 26 132/75 91 Room Air Physical Exam General Appearance: WD/WN, no apparent distress Eyes: normal inspection, PERRL ENT: normal ENT inspection, hearing grossly normal Neck: supple Respiratory/Chest: chest non-tender, lungs clear Cardiovascular: no edema, + irregularly irregular Abdomen: normal bowel sounds, non tender, soft Extremities: normal range of motion Neurologic/Psychiatric: medical lab scientist II-XII nml as tested, oriented x 3 Skin: normal color Laboratory Results Last 24 Hours Test 02/01/17 18:15 02/01/17 18:27 02/01/17 18:31 02/01/17 18:58 White Blood Count 15.31 K/uL Red Blood Count 3.51 M/uL Hemoglobin 10.2 g/dL Hematocrit 32.5 % Mean Corpuscular Volume 92.6 fL Mean Corpuscular Hemoglobin 29.1 pg Mean Corpuscular Hemoglobin Concent 31.4 g/dl Platelet Count 129 K/uL Mean Platelet Volume 9.9 fL Neutrophils (%) (Auto) 87.6 % Lymphocytes (%) (Auto) 4.3 % Monocytes (%) (Auto) 7.7 % Eosinophils (%) (Auto) 0.0 % Basophils (%) (Auto) 0.1 % Neutrophils # (Auto) 13.41 K/uL Lymphocytes # (Auto) 0.66 K/uL Monocytes # (Auto) 1.18 K/uL Eosinophils # (Auto) 0.00 K/uL Basophils # (Auto) 0.01 K/uL RDW Standard Deviation 57.9 fL RDW Coefficient of Variation 17.0 % Immature Granulocyte % (Auto) 0.3 % Immature Granulocyte # (Auto) 0.05 K/uL Prothrombin Time 25.1 SECONDS Prothromb Time International Ratio 2.3 Sodium Level 145 mmol/L Potassium Level 3.3 mmol/L Chloride Level 107 mmol/L Carbon Dioxide Level 28 mmol/L Anion Gap 10.0 mmol/L 23.0 mmol/L Blood Urea Nitrogen 24 mg/dl Creatinine 1.50 mg/dl Est Creatinine Clear Calc Drug Dose 46.0 ml/min Estimated GFR () 49.5 Estimated GFR (Non- 42.7 BUN/Creatinine Ratio 15.9 Random Glucose 221 mg/dl Calcium Level 8.3 mg/dl Magnesium Level 2.1 mg/dl Total Bilirubin 0.6 mg/dl Direct Bilirubin 0.2 mg/dl Aspartate Amino Transf (AST/SGOT) 19 U/L Alanine Aminotransferase (ALT/SGPT) 30 U/L Alkaline Phosphatase 74 U/L Total Creatine Kinase 31 U/L Creatine Kinase MB < 0.5 ng/ml Creatine Kinase MB Ratio Troponin I 0.035 ng/ml Total Protein 7.8 gm/dl Albumin 2.6 gm/dl Bedside Hemoglobin 10.9 g/dl Bedside Hematocrit 32 % Bedside Sodium 145 mEq/L Bedside Potassium 3.3 mEq/L Bedside Chloride 102 mEq/L Bedside Total CO2 25 mEq/l Bedside Blood Urea Nitrogen 23 mg/dl Bedside Creatinine 1.2 mg/dl Bedside Glucose (other) 224 mg/dl Bedside Ionized Calcium (Bere) 1.06 mmol/l Bedside Lactic Acid Venous 2.72 mmol/L Urine Color YELLOW Urine Appearance CLOUDY Urine pH 5.0 Urine Specific [place] 1.018 Urine Protein TRACE Urine Glucose (UA) NEG Urine Ketones NEG Urine Occult Blood 2+ Urine Nitrite NEG Urine Bilirubin NEG Urine Urobilinogen NEG Urine Leukocyte Esterase LARGE Urine WBC (Auto) >30 /hpf Urine RBC (Auto) 5-10 /hpf Urine Hyaline Casts (Auto) 10-30 /lpf Urine Epithelial Cells (Auto) 5-10 /lpf Urine Bacteria (Auto) 2+ Urine Pathogenic Casts /lpf Urine Mucus PRESENT Test 02/01/17 22:52 02/02/17 05:44 Lactic Acid Level 1.5 mmol/L White Blood Count 12.40 K/uL Red Blood Count 3.50 M/uL Hemoglobin 9.9 g/dL Hematocrit 32.5 % Mean Corpuscular Volume 92.9 fL Mean Corpuscular Hemoglobin 28.3 pg Mean Corpuscular Hemoglobin Concent 30.5 g/dl Platelet Count 122 K/uL Mean Platelet Volume 10.3 fL Neutrophils (%) (Auto) 76.8 % Lymphocytes (%) (Auto) 10.7 % Monocytes (%) (Auto) 12.1 % Eosinophils (%) (Auto) 0.1 % Basophils (%) (Auto) 0.1 % Neutrophils # (Auto) 9.52 K/uL Lymphocytes # (Auto) 1.33 K/uL Monocytes # (Auto) 1.50 K/uL Eosinophils # (Auto) 0.01 K/uL Basophils # (Auto) 0.01 K/uL RDW Standard Deviation 58.3 fL RDW Coefficient of Variation 17.2 % Immature Granulocyte % (Auto) 0.2 % Immature Granulocyte # (Auto) 0.03 K/uL Prothrombin Time 25.7 SECONDS Prothromb Time International Ratio 2.3 Sodium Level 144 mmol/L Potassium Level 3.6 mmol/L Chloride Level 106 mmol/L Carbon Dioxide Level 29 mmol/L Anion Gap 9.0 mmol/L Blood Urea Nitrogen 25 mg/dl Creatinine 1.30 mg/dl Est Creatinine Clear Calc Drug Dose 53.3 ml/min Estimated GFR () 58.9 Estimated GFR (Non- 50.8 BUN/Creatinine Ratio 19.5 Random Glucose 138 mg/dl Calcium Level 8.3 mg/dl Iron Level 19 mcg/dl Total Iron Binding Capacity 198 mcg/dl Transferrin 163 mg/dl Transferrin % Saturation 8 % Ferritin 328.3 ng/ml Assessment and Plan Metabolic encephalopathy likely 2/2 UTI + HAP/Aspiration pneumonia (meets sirs criteria) Zosyn, Vancomycin Blood cultures + for gram + cocci Consult ID IV NSS UC, BC, SC pending X-ray with left basilar opacity Failed Dysphagia screen Speech eval- i suspect there is a component of dementia and will need an eval for dietary recommendations going forward - michael if aspiration pneumonia Keep NPO until patient is more alert Aspiration precautions Hypokalemia 20 meq- replaced Recheck AM Ambulatory dysfunction PT OT Afib, rate controlled Continue Coumadin, lopressor Daily inr HTN: Continue amlodipine, Lisinopril, Lopressor Chronic pain Hold Oxycodone with AMS Dementia Hold Memantine, continue Donepazil, Risperidone RLS: Continue Requip Depression/Anxiety Continue Sertraline Hold home ativan BPH Continue finasteride DVT proph Coumadin Code: DNR
[2017-02-02] MEDS: ACETAMINOPHEN 325 MG TAB PO PRN ×2 (13:51→19:54)
--- NOTE | 2017-02-02 14:07 | Progress Note ---
Progress Note Date of Service Feb 02, 2017. Progress Note ID Consult Dictated #[id number] A/P: 1.GPC septicemia 2. Fever 3. Leukocytosis 4. +UA -Follow cultures, continue abx for now -Repeat blood cultures -Await ID gpc from blood, suggest echo -Will follow, thank you
--- NOTE | 2017-02-02 14:41 | INFECT. DISEASE CONSULTATION ---
DATE OF CONSULTATION: 02/02/2017 DATE OF CONSULTATION: 02/02/2017. REQUESTING PHYSICIAN: Dr. Cruz. HISTORY OF PRESENT ILLNESS: This is an 81-year-old gentleman who was admitted yesterday after he had change in mental status at home. On my examination, he is eating lunch with assistance and offers no complaints. He was found to be febrile with a T-max of 38.4 last night; however, he denies any fevers or chills. Per the H\T\P, he did have a fever of 102 degrees yesterday. Review of old cultures does reveal a urine culture from September of last year which grew fairly sensitive Klebsiella pneumonia and pansensitive E. coli. Per the H\T\P, he also recently had urine studies done which were felt to be colonized and he has not recently been on any antibiotics. He denies any urinary complaints. He states that he does recall coming to the hospital and is feeling better today. He denies any chest pain, cough, shortness of breath, nausea, vomiting, diarrhea or abdominal pain. He is eating a pureed diet. He is on aspiration precautions. He was placed yesterday on Levaquin and ceftriaxone. He has been broadened to vancomycin and Zosyn. In the Emergency Room, he did have a leukocytosis of 15.3. This has improved. His urinalysis had greater than 30 WBCs and 2+ bacteria. Blood cultures were done as part of his initial workup and 2 out of 2 sets are now growing gram positive cocci. Urine culture is pending. The patient states he is tolerating his antibiotics well. He offers no complaints at this visit. He does have chronic Carr in place. All remaining review of systems are unremarkable. PAST MEDICAL HISTORY: Significant for Alzheimer's dementia, anemia, chronic kidney disease, anxiety, BPH, coronary artery disease, CHF, hypertension, hyperlipidemia, prostate cancer, mitral regurgitation, osteoarthritis, Parkinson's disease, vascular dementia, atrial fibrillation, obstructive sleep apnea and questionable Parkinson's disease. PAST SURGICAL HISTORY: Significant for CABG and stent placement. SOCIAL HISTORY: Negative for tobacco use, alcohol use or drug use. He is and lives with his . ALLERGIES: No known drug allergies. CURRENT MEDICATIONS: Include Coumadin, Lasix, vancomycin, Norvasc, aspirin, iron, Lasix, lisinopril, Zoloft, Zocor, Zosyn, Aricept, Proscar, Lopressor, potassium, risperidone, Requip, Tylenol, Maalox, milk of magnesia, Zofran and MiraLax. PHYSICAL EXAMINATION: VITAL SIGNS: T-max is 38.4. Current temperature is 36.6, pulse 88, respiratory rate 25, blood pressure 163/91, oxygen saturation is 95-98% on 2 liters nasal cannula. GENERAL: He is awake and alert. He is eating lunch without difficulty. HEAD, EYES, EARS, NOSE, AND THROAT: Mucous membranes are moist. HEART: Irregularly irregular. LUNGS: Clear anteriorly. ABDOMEN: Soft, nontender, nondistended. There is no edema. SKIN: Without rash. LABORATORY STUDIES: CBC today reveals a white blood cell count 12.4, hemoglobin 9.9 and platelets are 122. Chemistry panel reveals a sodium of 144, potassium 3.6, chloride 106, bicarbonate 29, BUN 25, creatinine 1.3, glucose is 138. LFTs are within normal limits on admission. Urinalysis has greater than 30 WBCs and 2+ bacteria. Urine culture is pending. Blood cultures have gram positive cocci in 2 out of 2 sets. Chest x-ray done in the ER shows a left basilar opacity with questionable effusion and vascular congestion. A CT of the head was done in the ER and shows no acute intracranial findings. ASSESSMENT AND PLAN: 1. Gram-positive septicemia. 2. Fever. 3. Leukocytosis, improving. 4. Abnormal urine studies, questionable source for infection. At this time, he will remain on broad-spectrum antibiotics pending the results of his blood and urine cultures. Blood cultures will be repeated. An echocardiogram should be obtained as well. We will follow along with you. Thank you for this consultation.
[2017-02-02] MEDS: VANCOMYCIN INJ 1,200 MG in SODIUM CHLORIDE 0.9% 250ML 250 ML IV SCH (16:12)
[2017-02-02] MEDS: WARFARIN SOD 3 MG TAB PO SCH (16:14)
[2017-02-02] MEDS: SODIUM CHLORIDE 0.9% 1000ML 1,000 ML IV SCH ×2 (18:28→22:53)
[2017-02-02] MEDS: DONEPEZIL HCL 5 MG TAB PO SCH (19:57)
[2017-02-02] MEDS: FUROSEMIDE 40 MG TAB PO SCH (19:59)
[2017-02-02] MEDS: FINASTERIDE 5 MG TAB PO SCH (19:59)
[2017-02-02] MEDS: ROPINIROLE HCL 0.25 MG TAB PO SCH (19:59)
[2017-02-03] MEDS: PIPERACILL/TAZOBAC IV 4.5 GM in DEXTROSE 5% 100ML 100 ML IV SCH ×3 (02:05→17:22)
[2017-02-03 03:00] VITALS: BP 136/79; PULSE 72; TEMP 37; O2SAT 92
[2017-02-03 05:45] LABS: BASO % 0.2 %; BASO ABS # 0.02 K/uL (0-0.2); COMPLETE YES; EOS % 0.3 %; HEMATOCRIT 31.4 % (42-52); IG% 0.2 %; LYMPH % 17.2 %; LYMPH ABS # 1.82 K/uL (1.2-3.4); MEAN CELL VOLUME 92.6 fL (80-100); MEAN CORPUSCULAR HEMOGLOBIN 28.3 pg (25-34); MEAN CORPUSCULAR HGB CONC 30.6 g/dl (32-36); MEAN PLATELET VOLUME 9.7 fL (7.4-10.4); MONO % 9.2 %; NEUT % 72.9 %; PLATELET COUNT 130 K/uL (130-400); RED BLOOD COUNT 3.39 M/uL (4.7-6.1); WHITE BLOOD COUNT 10.59 K/uL (4.8-10.8)
[2017-02-03 05:53] LABS: INR 2.8 (0.9-1.1)
[2017-02-03 06:17] LABS: BUN/CREATININE RATIO 19.6 (10-20); CALCIUM 8.3 mg/dl (8.5-10.1); CREATININE 1.3 mg/dl (0.60-1.40); POTASSIUM 3.1 mmol/L (3.5-5.1)
[2017-02-03] MEDS: POTASSIUM CHLORIDE INJ 40 MEQ in SODIUM CHLORIDE 0.9% 1000ML 1,000 ML IV SCH ×2 (06:45→20:47)
[2017-02-03 07:00] VITALS: BP 159/77; PULSE 69; TEMP 37; O2SAT 96
--- NOTE | 2017-02-03 07:12 | Progress Note ---
Subjective Date of Service: Feb 03, 2017. Subjective Pt evaluation today including: conversation w/ patient, physical exam, chart review Low grade fevers y.day. No CP or SOB. Problem List Medical Problems: (1) CHF (congestive heart failure) Status: Acute (2) New onset a-fib Status: Acute (3) Sepsis Status: Acute Review of Systems Constitutional: + fever Respiratory: No cough, No dyspnea at rest, No dyspnea on exertion, No hemoptysis, No problem reported, No see HPI, No shortness of breath, No sputum, No wheezing Cardiac: No PND, No chest pain, No claudication, No edema, No orthopnea, No palpitations, No problem reported, No see HPI Abdomen: No GI bleeding, No constipation, No diarrhea, No nausea, No pain, No problem reported, No see HPI, No vomiting Medications Medications (Trade) Dose Ordered Sig/María Route Start Time Stop Time Status Last Admin Dose Admin Amlodipine Besylate (Norvasc Tab) 5 mg QAM PO 02/02/17 09:00 03/04/17 08:59 02/02/17 11:11 5 MG Aspirin (Ecotrin Tab) 81 mg QAM PO 02/02/17 09:00 03/04/17 08:59 02/02/17 11:12 81 MG Ferrous Gluconate (Ferrous Gluconate Tab) 324 mg DAILY PO 02/02/17 09:00 03/04/17 08:59 02/02/17 11:12 324 MG Furosemide (Lasix Tab) 40 mg QPM PO 02/02/17 21:00 03/04/17 20:59 02/02/17 19:59 40 MG Furosemide (Lasix Tab) 80 mg QAM PO 02/02/17 09:00 03/04/17 08:59 02/02/17 11:11 80 MG Lisinopril (Zestril Tab) 40 mg QAM PO 02/02/17 09:00 03/04/17 08:59 02/02/17 11:11 40 MG Sertraline HCl (Zoloft Tab) 100 mg QAM PO 02/02/17 09:00 03/04/17 08:59 02/02/17 11:10 100 MG Simvastatin (Zocor Tab) 20 mg DAILY PO 02/02/17 09:00 03/04/17 08:59 02/02/17 11:10 20 MG Warfarin Sodium 3 mg 3 mg Q3D@1600 PO 02/02/17 16:00 03/04/17 15:59 02/02/17 16:14 3 MG Vancomycin HCl 1200 mg/Sodium Chloride 274 ml @ 125 mls/hr Q18H IV 02/02/17 16:00 02/09/17 15:59 02/02/17 16:12 125 MLS/HR Potassium Chloride/Sodium Chloride (KCl Inj/Nss 1000ml) 1,020 ml @ 75 mls/hr [id number] IV 02/03/17 07:00 03/05/17 06:59 02/03/17 06:45 75 MLS/HR Objective Vital Signs Date Time Temp Pulse Resp B/P Pulse Ox O2 Delivery O2 Flow Rate FiO2 02/03/17 04:00 Nasal Cannula 2.0 02/03/17 03:00 37.0 72 24 136/79 92 Nasal Cannula 1.0 02/02/17 23:59 Nasal Cannula 2.0 02/02/17 23:30 36.7 68 24 145/76 93 Nasal Cannula 1.0 02/02/17 20:00 95 Nasal Cannula 2.0 02/02/17 19:18 37.8 93 33 174/81 95 Nasal Cannula 2.0 02/02/17 16:00 Nasal Cannula 1.0 02/02/17 15:25 37.4 83 31 147/76 93 Nasal Cannula 1.0 02/02/17 12:00 Nasal Cannula 1.0 02/02/17 11:39 36.6 88 25 163/91 95 Nasal Cannula 2.0 02/02/17 08:00 Nasal Cannula 1.0 02/02/17 07:13 36.6 77 20 144/81 98 Nasal Cannula 2.0 Physical Exam General Appearance: WD/WN Eyes: normal inspection ENT: normal ENT inspection Neck: supple, no adenopathy Respiratory/Chest: chest non-tender, lungs clear Cardiovascular: regular rate, rhythm, no edema, no murmur Abdomen: normal bowel sounds, non tender, soft Extremities: normal range of motion Neurologic/Psychiatric: 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 II-XII nml as tested, oriented x 3 Skin: normal color Laboratory Results Last 24 Hours Test 02/03/17 05:32 White Blood Count 10.59 K/uL Red Blood Count 3.39 M/uL Hemoglobin 9.6 g/dL Hematocrit 31.4 % Mean Corpuscular Volume 92.6 fL Mean Corpuscular Hemoglobin 28.3 pg Mean Corpuscular Hemoglobin Concent 30.6 g/dl Platelet Count 130 K/uL Mean Platelet Volume 9.7 fL Neutrophils (%) (Auto) 72.9 % Lymphocytes (%) (Auto) 17.2 % Monocytes (%) (Auto) 9.2 % Eosinophils (%) (Auto) 0.3 % Basophils (%) (Auto) 0.2 % Neutrophils # (Auto) 7.73 K/uL Lymphocytes # (Auto) 1.82 K/uL Monocytes # (Auto) 0.97 K/uL Eosinophils # (Auto) 0.03 K/uL Basophils # (Auto) 0.02 K/uL RDW Standard Deviation 57.4 fL RDW Coefficient of Variation 17.0 % Immature Granulocyte % (Auto) 0.2 % Immature Granulocyte # (Auto) 0.02 K/uL Prothrombin Time 31.0 SECONDS Prothromb Time International Ratio 2.8 Sodium Level 146 mmol/L Potassium Level 3.1 mmol/L Chloride Level 109 mmol/L Carbon Dioxide Level 29 mmol/L Anion Gap 8.0 mmol/L Blood Urea Nitrogen 25 mg/dl Creatinine 1.30 mg/dl Est Creatinine Clear Calc Drug Dose 53.8 ml/min Estimated GFR () 58.9 Estimated GFR (Non- 50.8 BUN/Creatinine Ratio 19.6 Random Glucose 167 mg/dl Calcium Level 8.3 mg/dl Assessment and Plan Metabolic encephalopathy likely 2/2 UTI + HAP/Aspiration pneumonia (meets sirs criteria) Zosyn, Vancomycin Blood cultures + for gram + cocci ID input appreciated. IV NSS Blood cultures + for gram + cocci. Repeat blood cultures obtained. X-ray with left basilar opacity Failed Dysphagia screen Speech eval- i suspect there is a component of dementia and will need an eval for dietary recommendations going forward - michael if aspiration pneumonia Keep NPO until patient is more alert Aspiration precautions Hypokalemia 20 meq- replaced Recheck AM Ambulatory dysfunction PT OT Afib, rate controlled Continue Coumadin, lopressor Daily inr. INR is 2.8 today. Anemia Heme test stools HTN: Continue amlodipine, Lisinopril, Lopressor Chronic pain Hold Oxycodone with AMS Dementia Hold Memantine, continue Donepazil, Risperidone RLS: Continue Requip Depression/Anxiety Continue Sertraline Hold home ativan BPH Continue finasteride DVT proph Coumadin Code: DNR Continued [facility] stay due to: multiple IV medications needed
[2017-02-03] MEDS: METOPROLOL TARTRATE 25 MG TAB PO SCH ×2 (08:49→20:50)
[2017-02-03] MEDS: FERROUS GLUCONATE 324 MG TAB PO SCH (08:49)
[2017-02-03] MEDS: LISINOPRIL 40 MG TAB PO SCH (08:49)
[2017-02-03] MEDS: ASPIRIN 81 MG ECTAB PO SCH (08:49)
[2017-02-03] MEDS: AMLODIPINE BESYLATE 5 MG TAB PO SCH (08:49)
[2017-02-03] MEDS: RISPERIDONE 0.5 MG TAB PO SCH ×2 (08:50→20:51)
[2017-02-03] MEDS: SIMVASTATIN 20 MG TAB PO SCH (08:50)
[2017-02-03] MEDS: FUROSEMIDE 80 MG TAB PO SCH (08:50)
[2017-02-03] MEDS: SERTRALINE HCL 100 MG TAB PO SCH (08:50)
[2017-02-03] MEDS: POTASSIUM CHLORIDE 20 MEQ TABCR PO SCH ×3 (08:50→20:48)
[2017-02-03] MEDS ORDERED: VANCOMYCIN TROUGH SCH ×2 (09:30→15:30)
[2017-02-03] MEDS: VANCOMYCIN INJ 1,200 MG in SODIUM CHLORIDE 0.9% 250ML 250 ML IV SCH (10:21)
--- NOTE | 2017-02-03 10:45 | Progress Note ---
Subjective Date of Service: Feb 03, 2017. Subjective pt failed swallow study, npo. blood cultures with gpc x 2. urine culture with contamination. repeat blood cultures pending. tmax overnight 37.8, currently afebrile. No overnight events. tolerating abx, remains on broad spectrum abx. wbc 10.5 Problem List Medical Problems: (1) CHF (congestive heart failure) Status: Acute (2) New onset a-fib Status: Acute (3) Sepsis Status: Acute Objective Vital Signs Date Time Temp Pulse Resp B/P Pulse Ox O2 Delivery O2 Flow Rate FiO2 02/03/17 07:00 37.0 69 20 159/77 96 Room Air 02/03/17 04:00 Nasal Cannula 2.0 02/03/17 03:00 37.0 72 24 136/79 92 Nasal Cannula 1.0 02/02/17 23:59 Nasal Cannula 2.0 02/02/17 23:30 36.7 68 24 145/76 93 Nasal Cannula 1.0 02/02/17 20:00 95 Nasal Cannula 2.0 02/02/17 19:18 37.8 93 33 174/81 95 Nasal Cannula 2.0 02/02/17 16:00 Nasal Cannula 1.0 02/02/17 15:25 37.4 83 31 147/76 93 Nasal Cannula 1.0 02/02/17 12:00 Nasal Cannula 1.0 02/02/17 11:39 36.6 88 25 163/91 95 Nasal Cannula 2.0 Laboratory Results Item Value Date Time Blood Culture - Preliminary Resulted 02/01/17 1840 Blood Gram Positive Cocci Blood Culture - Preliminary Resulted 02/01/17 1815 Blood Gram Positive Cocci Urine Culture - Final Complete 02/01/17 1858 Urine,Catheterized THREE TYPES OF ORGANISMS PRESENT, ALL... Last 24 Hours Test 02/03/17 05:32 02/03/17 09:40 White Blood Count 10.59 K/uL Red Blood Count 3.39 M/uL Hemoglobin 9.6 g/dL Hematocrit 31.4 % Mean Corpuscular Volume 92.6 fL Mean Corpuscular Hemoglobin 28.3 pg Mean Corpuscular Hemoglobin Concent 30.6 g/dl Platelet Count 130 K/uL Mean Platelet Volume 9.7 fL Neutrophils (%) (Auto) 72.9 % Lymphocytes (%) (Auto) 17.2 % Monocytes (%) (Auto) 9.2 % Eosinophils (%) (Auto) 0.3 % Basophils (%) (Auto) 0.2 % Neutrophils # (Auto) 7.73 K/uL Lymphocytes # (Auto) 1.82 K/uL Monocytes # (Auto) 0.97 K/uL Eosinophils # (Auto) 0.03 K/uL Basophils # (Auto) 0.02 K/uL RDW Standard Deviation 57.4 fL RDW Coefficient of Variation 17.0 % Immature Granulocyte % (Auto) 0.2 % Immature Granulocyte # (Auto) 0.02 K/uL Prothrombin Time 31.0 SECONDS Prothromb Time International Ratio 2.8 Sodium Level 146 mmol/L Potassium Level 3.1 mmol/L Chloride Level 109 mmol/L Carbon Dioxide Level 29 mmol/L Anion Gap 8.0 mmol/L Blood Urea Nitrogen 25 mg/dl Creatinine 1.30 mg/dl Est Creatinine Clear Calc Drug Dose 53.8 ml/min Estimated GFR () 58.9 Estimated GFR (Non- 50.8 BUN/Creatinine Ratio 19.6 Random Glucose 167 mg/dl Calcium Level 8.3 mg/dl Vancomycin Level Trough 14.2 mcg/ml Assessment and Plan (1) Sepsis Assessment & Plan: continue current abx, follow repeat cultures, await ID gpc from initial blood cultures. will need at least 14 days abx, suggest echo. will continue to follow. further abx recs based on culture data (2) UTI (urinary tract infection) Continued [facility] stay due to: multiple IV medications needed Problem Qualifiers (1) Sepsis: Sepsis type: sepsis due to unspecified organism Qualified Codes: A41.9 - Sepsis, unspecified organism (2) UTI (urinary tract infection): Urinary tract infection type: catheter-associated UTI Indwelling urinary catheter type: unspecified Encounter type: initial encounter Qualified Codes : T83.511A - Infection and inflammatory reaction due to indwelling urethral catheter, initial encounter; N39.0 - Urinary tract infection, site not specified
[2017-02-03] MEDS ORDERED: POTASSIUM CHLORIDE 10 MEQ TABCR PO STA (10:46)
[2017-02-03 11:32] VITALS: BP 126/77; PULSE 65; TEMP 36.7; O2SAT 93
--- NOTE | 2017-02-03 13:06 | Pharmacy Progress Note ---
Pharmacy Antibiotic Prog Note Date of Service Feb 03, 2017. Subjective The patient is currently receiving Vancomycin 1200 g IV every 18 hours. The patient is currently on day # 3 of Vancomycin IV therapy. Objective Height (Feet): 5 Height (Inches): 8.00 Weight (Kilograms): 114.300 Levels: Item Value Date Time Vancomycin Level Trough 14.2 mcg/ml 02/03/17 0940 Lab Results (24hrs): Laboratory Tests Test 02/03/17 05:32 BUN/Creatinine Ratio 19.6 Blood Urea Nitrogen 25 mg/dl Creatinine 1.30 mg/dl White Blood Count 10.59 K/uL Red Blood Count 3.39 M/uL Hemoglobin 9.6 g/dL Hematocrit 31.4 % Mean Corpuscular Volume 92.6 fL Mean Corpuscular Hemoglobin 28.3 pg Mean Corpuscular Hemoglobin Concent 30.6 g/dl Platelet Count 130 K/uL Mean Platelet Volume 9.7 fL Neutrophils (%) (Auto) 72.9 % Lymphocytes (%) (Auto) 17.2 % Monocytes (%) (Auto) 9.2 % Eosinophils (%) (Auto) 0.3 % Basophils (%) (Auto) 0.2 % Neutrophils # (Auto) 7.73 K/uL Lymphocytes # (Auto) 1.82 K/uL Monocytes # (Auto) 0.97 K/uL Eosinophils # (Auto) 0.03 K/uL Basophils # (Auto) 0.02 K/uL Micro Results: Item Value Date Time Blood Culture Received 02/02/17 1442 Blood Pending Blood Culture Received 02/02/17 1440 Blood Pending Blood Culture - Preliminary Resulted 02/01/17 1840 Blood Gram Positive Cocci Blood Culture - Preliminary Resulted 02/01/17 1815 Blood Gram Positive Cocci Recent Pertinent Medications Item Value Date Time Piperacillin Sod/ 120 ml @ 28.75 mls/hr 02/02/17 0200 Tazobactam Sod Q8H/IV 02/03/17 1021 4.5 gm/Dextrose Assessment & Plan This drug level is approaching Therapeutic. Given the fact we checked this prior to patient achieving steady state, I think he is in good shape. There was some question as to whether he might accumulate. I will continue with current regimen and will re-check another trough level prior to 1600 dose on Monday02/05/17. Goal trough level estimate: between 15-20 mcg/mL. Pharmacy will continue to follow and will adjust dose/frequency as necessary. Thank you
[2017-02-03 15:25] VITALS: BP 158/86; PULSE 73; TEMP 37.9; O2SAT 93
--- NOTE | 2017-02-03 15:25 | DIAGNOSTIC IMAGING REPORT ---
MODIFIED BARIUM SWALLOW CLINICAL HISTORY: Pneumonia. Evaluate for aspiration. COMPARISON STUDY: No previous studies for comparison. Fluoroscopy time: 3.6 seconds. FINDINGS: There was a small amount of tracheal aspiration with swallows of thin liquids with delayed cough. There is also minimal aspiration with nectar thick liquids. No aspiration was identified with pudding consistencies. There was prolonged mastication with crackers with paste. Residuals were noted within the vallecula and piriform sinuses. IMPRESSION: 1. Minimal tracheal aspiration with thin liquids and nectar thick liquids. 2. No aspiration with pudding or crackers with paste. 3. Full recommendations by speech pathology to follow. Electronically signed by: Tim Mitchell M.D. 02/03/2017 3:23 PM Dictated Date/Time: 02/03/2017 3:21 PM
[2017-02-03] MEDS ORDERED: WARFARIN SOD 2 MG TAB PO SCH (16:00)
[2017-02-03] MEDS: ACETAMINOPHEN 325 MG TAB PO PRN (17:19)
[2017-02-03] MEDS: WARFARIN SOD 2 MG TAB PO SCH (17:21)
[2017-02-03 19:08] VITALS: BP 136/86; PULSE 80; TEMP 36.6; O2SAT 97
[2017-02-03] MEDS: FINASTERIDE 5 MG TAB PO SCH (20:49)
[2017-02-03] MEDS: ROPINIROLE HCL 0.25 MG TAB PO SCH (20:49)
[2017-02-03] MEDS: FUROSEMIDE 40 MG TAB PO SCH (20:49)
[2017-02-03] MEDS: DONEPEZIL HCL 5 MG TAB PO SCH (20:51)
[2017-02-04] VITALS (7 sets, daily range): BP systolic 139–173; BP diastolic 75–102; PULSE 68–91; TEMP 36.6–37.6; O2SAT 95–98
[2017-02-04] MEDS: PIPERACILL/TAZOBAC IV 4.5 GM in DEXTROSE 5% 100ML 100 ML IV SCH ×3 (02:05→18:52)
[2017-02-04] MEDS ORDERED: VANCOMYCIN TROUGH SCH (03:30)
[2017-02-04] MEDS: VANCOMYCIN INJ 1,200 MG in SODIUM CHLORIDE 0.9% 250ML 250 ML IV SCH ×2 (04:19→22:41)
[2017-02-04 06:28] LABS: BASO % 0.1 %; BASO ABS # 0.01 K/uL (0-0.2); COMPLETE YES; EOS % 0.3 %; HEMATOCRIT 29.5 % (42-52); IG% 0.3 %; LYMPH % 16.9 %; LYMPH ABS # 1.53 K/uL (1.2-3.4); MEAN CELL VOLUME 92.2 fL (80-100); MEAN CORPUSCULAR HEMOGLOBIN 28.1 pg (25-34); MEAN CORPUSCULAR HGB CONC 30.5 g/dl (32-36); MEAN PLATELET VOLUME 9.7 fL (7.4-10.4); MONO % 7.7 %; NEUT % 74.7 %; PLATELET COUNT 148 K/uL (130-400); WHITE BLOOD COUNT 9.04 K/uL (4.8-10.8)
[2017-02-04 06:36] LABS: INR 3.1 (0.9-1.1); PROTHROMBIN TIME (PATIENT) 34.3 SECONDS (9.0-12.0)
[2017-02-04 07:05] LABS: BUN/CREATININE RATIO 17.8 (10-20); CALCIUM 8.3 mg/dl (8.5-10.1); CREATININE 1.1 mg/dl (0.60-1.40); POTASSIUM 3.2 mmol/L (3.5-5.1)
[2017-02-04] MEDS ORDERED: PERFLUTREN LIPID MICROSPHERE (DEFINITY) IV ONE (07:15)
[2017-02-04] MEDS ORDERED: POTASSIUM CHLORIDE 20 MEQ TABCR PO ONE (08:00)
[2017-02-04] MEDS: FERROUS GLUCONATE 324 MG TAB PO SCH (08:51)
[2017-02-04] MEDS: FUROSEMIDE 80 MG TAB PO SCH (08:52)
[2017-02-04] MEDS: LISINOPRIL 40 MG TAB PO SCH (08:52)
[2017-02-04] MEDS: SERTRALINE HCL 100 MG TAB PO SCH (08:52)
[2017-02-04] MEDS: SIMVASTATIN 20 MG TAB PO SCH (08:52)
[2017-02-04] MEDS: ASPIRIN 81 MG ECTAB PO SCH (08:53)
[2017-02-04] MEDS: AMLODIPINE BESYLATE 5 MG TAB PO SCH (08:53)
[2017-02-04] MEDS: RISPERIDONE 0.5 MG TAB PO SCH ×2 (08:55→20:27)
[2017-02-04] MEDS: POTASSIUM CHLORIDE 20 MEQ TABCR PO SCH ×3 (08:57→20:28)
[2017-02-04] MEDS: METOPROLOL TARTRATE 25 MG TAB PO SCH ×2 (08:58→20:27)
[2017-02-04] MEDS ORDERED: POTASSIUM CHLORIDE 20 MEQ TABCR PO SCH (09:00)
--- NOTE | 2017-02-04 09:48 | ECHOCARDIOGRAM REPORT ---
*NOTICE TO RECEIVING [employer] This information is strictly Confidential and protected under [place] law. [place] law prohibits you from making any further disclosure of this information unless further disclosure is expressly permitted by the written consent of the person to whom it pertains or is authorized by law. A general authorization for the release of medical or other information is not sufficient for this purpose. Hospital accepts no responsibility if the information is made available to any other person, INCLUDING THE PATIENT. Interpretation Summary * Name: JOSSELYN GALICIA Study Date: 02/04/2017 06:45 AM BP: 171/101 mmHg * Patient Location: [id number].2E\[id number]\E208\S\1 HR: 83 * : 1935 (M/d/yyyy) Gender: Male Height: 68 in * Age: 81 yrs Ethnicity: CA Weight: 251 lb * Ordering Physician: Derick Nguyen * Referring Physician: Self, Referred * Performed By: Salome Edge RDCS * * Reason For Study: ENDOCARDITIS * BSA: 2.3 m2 * -- Conclusions -- * There is moderate concentric left ventricular hypertrophy. * Left ventricular systolic function is moderately reduced. * There are regional wall motion abnormalities as specified. * The right ventricle is moderately dilated. * The right ventricular systolic function is moderately reduced. * The left atrium is severely dilated. * The right atrium is moderately dilated. * Moderate to severe pulmonic valvular regurgitation. * There is a large vegetation or mass on the pulmonic valve. * There is mild to moderate mitral regurgitation. * Right ventricular systolic pressure is elevated at 40-50mmHg. * Large left pleural effusion. * Compared to a study from 09/2016, there has been a decrease in LV systolic function, changes in chamber dimension as noted and development of a pulmonic vegetation with associated valve dysfunction Procedure Details * A contrast injection of Definity was performed to improve assessment of LV function. * Contrast was injected into an intravenous site in the right arm. * One vial of Definity ultrasound contrast was diluted in normal saline to a total volume of 10 ml. A total of '2' ml of solution was administered during imaging. * Lot # [id number] of Definity utilized for procedure. * Expiration date FEB 14. * The attending nurse who injected the contrast agent was ITZEL LOGAN RN. Left Ventricle * The left ventricle is normal in size. * There is moderate concentric left ventricular hypertrophy. * Ejection Fraction = 30-35%. * Left ventricular systolic function is moderately reduced. * There are regional wall motion abnormalities as specified. * Septum and inferior wall are severely hypokinetic. Remaining segments are moderately hypokinetic Right Ventricle * The right ventricle is moderately dilated. * The right ventricular systolic function is moderately reduced. Atria * The left atrium is severely dilated. * The right atrium is moderately dilated. Mitral Valve * The mitral valve is grossly normal. * There is mild to moderate mitral regurgitation. Tricuspid Valve * The tricuspid valve is not well visualized, but is grossly normal. * There is mild tricuspid regurgitation. * Right ventricular systolic pressure is elevated at 40-50mmHg. Aortic Valve * The aortic valve is normal in structure and function. * No hemodynamically significant valvular aortic stenosis. * There is no significant aortic regurgitation. Pulmonic Valve * Moderate to severe pulmonic valvular regurgitation. Great Vessels * The aortic root is normal size. Pericardium/Pleural * There is no pericardial effusion. * Large left pleural effusion. Pulmonic Valve * There is a large vegetation or mass on the pulmonic valve. MMode 2D Measurements and Calculations IVSd 1.5 cm IVSs 1.9 cm LVIDd 5.6 cm LVIDs 4.1 cm LVPWd 1.5 cm LVPWs 2.0 cm IVS/LVPW 0.98 FS 26.2 % EDV(Teich) 153.7 ml ESV(Teich) 75.6 ml EF(Teich) 50.8 % EDV(cubed) 175.6 ml ESV(cubed) 70.5 ml EF(cubed) 59.8 % % IVS thick 26.8 % % LVPW thick 32.7 % LV mass(C)d 389.5 grams LV mass(C)dI 173.0 grams/m\S\2 LV mass(C)s 378.6 grams LV mass(C)sI 168.2 grams/m\S\2 SV(Teich) 78.1 ml SI(Teich) 34.7 ml/m\S\2 SV(cubed) 105.1 ml SI(cubed) 46.7 ml/m\S\2 Ao root diam 3.6 cm Ao root area 10.4 cm\S\2 LA dimension 6.6 cm LA/Ao 1.8 LVAd ap4 43.3 cm\S\2 LVLd ap4 9.6 cm EDV(MOD-sp4) 163.5 ml EDV(sp4-el) 166.4 ml LVAs ap4 29.9 cm\S\2 LVLs ap4 9.0 cm ESV(MOD-sp4) 86.3 ml ESV(sp4-el) 84.5 ml EF(MOD-sp4) 47.2 % EF(sp4-el) 49.2 % LVAd ap2 51.6 cm\S\2 LVLd ap2 9.6 cm EDV(MOD-sp2) 238.0 ml EDV(sp2-el) 235.6 ml LVAs ap2 35.0 cm\S\2 LVLs ap2 8.5 cm ESV(MOD-sp2) 128.6 ml ESV(sp2-el) 121.6 ml EF(MOD-sp2) 46.0 % EF(sp2-el) 48.4 % LVLd %diff 0.58 % EDV(MOD-bp) 198.4 ml LVLs %diff -4.94 % ESV(MOD-bp) 105.8 ml EF(MOD-bp) 46.7 % SV(MOD-sp4) 77.2 ml SI(MOD-sp4) 34.3 ml/m\S\2 SV(MOD-sp2) 109.4 ml SI(MOD-sp2) 48.6 ml/m\S\2 SV(MOD-bp) 92.6 ml SI(MOD-bp) 41.1 ml/m\S\2 SV(sp4-el) 81.9 ml SI(sp4-el) 36.4 ml/m\S\2 SV(sp2-el) 114.0 ml SI(sp2-el) 50.6 ml/m\S\2 Doppler Measurements and Calculations MV E max ronda 103.4 cm/sec MV dec time 0.18 sec Ao V2 max 135.7 cm/sec Ao max PG 7.4 mmHg Ao max PG (full) 1.2 mmHg LV V1 max PG 6.2 mmHg LV V1 max 124.4 cm/sec TR max ronda 283.0 cm/sec
--- NOTE | 2017-02-04 12:42 | DIAGNOSTIC IMAGING REPORT ---
CHEST ONE VIEW PORTABLE CLINICAL HISTORY: Pulmonary infiltrates COMPARISON STUDY: 02/01/2017 FINDINGS: The heart remains enlarged. There is central vascular prominence without evidence of pulmonary edema. Slightly prominent left basal markings are likely atelectatic although an inflammatory process could appear similar. There are no pleural effusions. The study is limited due to the patient's large body habitus. IMPRESSION: 1. No change from the prior study. 2. Stable cardiomegaly 3. Increased left basilar markings, atelectatic versus inflammatory 4. Mild central vascular congestion. No evidence of edema Electronically signed by: Jace Moore M.D. 02/04/2017 12:40 PM Dictated Date/Time: 02/04/2017 12:38 PM
--- NOTE | 2017-02-04 14:12 | Progress Note ---
Subjective Date of Service: Feb 04, 2017. Subjective Pt evaluation today including: conversation w/ patient, conversation w/ family , physical exam, chart review, lab review, review of studies, review of inpatient medication list Pain: deines any pain Voiding: macario catheter in place Patient is seen and examined by me. Patient denies chest pain, shortness of breath, dizziness, palpitation or loss of cultures. Patient was accompanied with her daughter and son-in-law in the room. Patient is in bed comfortably. Patient denies abdominal pain and full needle was placed. Patient denies nausea , vomiting and diarrhea. Patient daughter was asking for probiotics. Problem List Medical Problems: (1) CHF (congestive heart failure) Status: Acute (2) New onset a-fib Status: Acute (3) Sepsis Status: Acute Review of Systems All Other Systems: Reviewed and Negative Medications Medications (Trade) Dose Ordered Sig/María Route Start Time Stop Time Status Last Admin Dose Admin Warfarin Sodium (Coumadin Tab) 2 mg Q3D@1600 PO 02/03/17 16:00 03/05/17 15:59 02/03/17 17:21 2 MG Perflutren Lipid Microsphere (Definity) 2 ml ONE ONCE IV 02/04/17 07:15 02/04/17 07:16 DC 02/04/17 07:15 2 ML Potassium Chloride (Klor-Con Tab) 20 meq NOW ONCE PO 02/04/17 08:00 02/04/17 08:01 DC 02/04/17 08:56 20 MEQ Objective Vital Signs Date Time Temp Pulse Resp B/P Pulse Ox O2 Delivery O2 Flow Rate FiO2 02/04/17 11:05 36.7 69 24 139/80 96 Nasal Cannula 2.0 02/04/17 08:00 Nasal Cannula 2.0 02/04/17 07:35 36.6 91 25 171/102 97 Nasal Cannula 2.0 02/04/17 04:00 Nasal Cannula 2.0 02/04/17 04:00 36.9 83 24 171/101 98 Nasal Cannula 2.0 02/04/17 00:00 Nasal Cannula 2.0 02/04/17 00:00 36.9 68 24 161/95 97 Nasal Cannula 2.0 02/03/17 20:00 Nasal Cannula 2.0 02/03/17 19:08 36.6 80 25 136/86 97 Nasal Cannula 2.0 02/03/17 16:00 Nasal Cannula 2.0 02/03/17 15:25 37.9 73 27 158/86 93 Nasal Cannula 2.0 Physical Exam Neck: supple, no JVD Comments: GA: patient is awake alert and not in acute distress. Cardiovascular: S1-S2 regular rate and rhythm, murmur appreciated on the left second intercostal space. Respiratory :CTA bilateral, negative for wheezing negative for rhonchi Abdomen: Obese, nontender, nondistended, BS present. Musculoskeletal in denies any pain in any joints at present. Patient is lying comfortably in the back. Neuro: No focal neurological deficits present, motor intact, unable to assess the gait since patient is lying on the bed. Extremities: trace edema bilateral lower extremities. Laboratory Results Last 24 Hours Test 02/04/17 00:45 02/04/17 06:10 Stool Occult Blood NEGATIVE White Blood Count 9.04 K/uL Red Blood Count 3.20 M/uL Hemoglobin 9.0 g/dL Hematocrit 29.5 % Mean Corpuscular Volume 92.2 fL Mean Corpuscular Hemoglobin 28.1 pg Mean Corpuscular Hemoglobin Concent 30.5 g/dl Platelet Count 148 K/uL Mean Platelet Volume 9.7 fL Neutrophils (%) (Auto) 74.7 % Lymphocytes (%) (Auto) 16.9 % Monocytes (%) (Auto) 7.7 % Eosinophils (%) (Auto) 0.3 % Basophils (%) (Auto) 0.1 % Neutrophils # (Auto) 6.74 K/uL Lymphocytes # (Auto) 1.53 K/uL Monocytes # (Auto) 0.70 K/uL Eosinophils # (Auto) 0.03 K/uL Basophils # (Auto) 0.01 K/uL RDW Standard Deviation 56.1 fL RDW Coefficient of Variation 16.7 % Immature Granulocyte % (Auto) 0.3 % Immature Granulocyte # (Auto) 0.03 K/uL Prothrombin Time 34.3 SECONDS Prothromb Time International Ratio 3.1 Sodium Level 145 mmol/L Potassium Level 3.2 mmol/L Chloride Level 109 mmol/L Carbon Dioxide Level 26 mmol/L Anion Gap 10.0 mmol/L Blood Urea Nitrogen 20 mg/dl Creatinine 1.10 mg/dl Est Creatinine Clear Calc Drug Dose 63.5 ml/min Estimated GFR () 72.1 Estimated GFR (Non- 62.2 BUN/Creatinine Ratio 17.8 Random Glucose 161 mg/dl Calcium Level 8.3 mg/dl Assessment and Plan Metabolic encephalopathy likely 2/2 UTI + HAP/Aspiration pneumonia (meets sirs criteria), endocarditis recent echocardiogram shows pulmonic vegetation. Metabolic encephalopathy resolved. ID is on case , continue Zosyn, and Vancomycin. Patient WBCs trending downward. Patient is afebrile. We will consult cardiology secondary to recent pulmonic vegetation. Blood cultures + for gram + cocci IV NSS Blood cultures + for gram + cocci. Repeat blood cultures obtained, So far preliminary report does not show any bacteria. X-ray chest; 1. No change from the prior study. 2. Stable cardiomegaly 3. Increased left basilar markings, atelectatic versus inflammatory 4. Mild central vascular congestion. No evidence of edema Failed Dysphagia screen Speech eval- i suspect there is a component of dementia and will need an eval for dietary recommendations going forward - michael if aspiration pneumonia Keep NPO until patient is more alert Aspiration precautions Hypokalemia 20 meq- replaced Recheck AM Ambulatory dysfunction PT OT Afib, rate controlled Currently in A. fib on monitor Continue Coumadin, lopressor Daily inr. INR is 3.1today. Continue same dose for now and repeat PT/INR in the a.m. Anemia Heme test stools HTN: Controlled, Continue amlodipine, Lisinopril, Lopressor Chronic pain Hold Oxycodone Dementia Hold Memantine, continue Donepezil, Risperidone RLS: Continue Requip Depression/Anxiety Continue Sertraline Hold home Ativan BPH Continue finasteride DVT proph Coumadin Code: DNR Continued [facility] stay due to: multiple IV medications needed Discharge planning: home with home health
[2017-02-04 15:18] LABS: BUN/CREATININE RATIO 18.4 (10-20); CALCIUM 8.2 mg/dl (8.5-10.1); CREATININE 1.1 mg/dl (0.60-1.40); POTASSIUM 3.3 mmol/L (3.5-5.1)
[2017-02-04] MEDS: POTASSIUM CHLORIDE INJ 40 MEQ in SODIUM CHLORIDE 0.9% 1000ML 1,000 ML IV SCH (16:27)
[2017-02-04] MEDS: WARFARIN SOD 2 MG TAB PO SCH (16:27)
--- NOTE | 2017-02-04 18:44 | CARDIOLOGY CONSULTATION ---
DATE OF CONSULTATION: 02/04/2017 REFERRING PHYSICIAN: Dr. Griggs. CHIEF COMPLAINT: Fevers. HISTORY OF PRESENT ILLNESS: Mr. Wes Hill is an 81-year-old gentleman with a known history of cardiac disease who had previously undergone coronary revascularization. The patient was admitted on the 01 of February after he became more lethargic, less responsive and more confused at his jail. There is also some reports of documented fever up to 102 degrees. The patient had lost interest in eating and based on these symptoms, was brought to [facility] for evaluation. The patient was discovered to have a positive blood cultures for Streptococcus and infectious disease was consulted. Recently they have been attempting to discover the source of infection and an echocardiogram was ordered today. The echocardiogram revealed vegetation involving the pulmonic valve. On interview, the patient claims to be feeling well. He states that originally he had some breathing difficulty and had been admitted to the hospital for pneumonia. He also reported some coughing previously. Currently, he denies symptoms of dyspnea or coughing, he is not aware of any recent fevers. He continued to have an element of anorexia, but did eat breakfast and some lunch today. He denies significant chest pain. He is complaining of some low back pain which is new for him. He denies any sense of swelling. He denies any sense of palpitations. PAST MEDICAL HISTORY: 1. Significant for the aforementioned coronary artery disease originally undergoing percutaneous intervention involving the right coronary in 2003, followed by coronary artery bypass grafting in 2004. This involved a PEREZ to the LAD, a saphenous vein graft to the first OM and a saphenous vein graft to the PDA. 2. Left ventricular hypertrophy concentric and mild. 3. Mitral regurgitation, mild in September 2016. 4. Diastolic heart failure, classified as stage II in 2016. 5. Atrial fibrillation on appropriate anticoagulation. 6. Hypertension. 7. Hyperlipidemia. 8. Benign prostatic hypertrophy. 9. Dementia, classified as both Alzheimer's and vascular type. 10. Prostate cancer. 11. Obstructive sleep apnea. PAST SURGICAL HISTORY: Includes the aforementioned coronary artery bypass grafting. SOCIAL HISTORY: The patient currently lives at a jail accompanied by his . He denies any significant alcohol use and has never been a smoker. FAMILY HISTORY: Noncontributory given the patient's advanced age. OUTPATIENT MEDICATIONS: Included aspirin, Colace, donepezil, furosemide, lisinopril, metoprolol, Namenda, Norvasc, potassium supplementation, Proscar, risperidone, sertraline, simvastatin, and warfarin. MEDICAL ALLERGIES: No known medical allergies. REVIEW OF SYSTEMS: A complete 10-system review of systems was performed and the pertinent positives noted in the history of present illness. The remainder of review of systems was normal. The patient denied any abdominal complaints. He states that he has difficulty with ambulation due to weakness and pain in the legs. Generally speaking, he is pushed to meals in a wheelchair and occasionally uses a walker. PHYSICAL EXAMINATION: GENERAL: The patient did not appear to be in acute distress. He is a pleasant individual who is alert and oriented x3. He was somewhat forgetful regarding certain details at times, but generally speaking his responses to questions where appropriate. VITAL SIGNS: Included blood pressure of 147/78 with a pulse of 70. HEENT: Sclerae are anicteric. Pupils equal, reactive to light and accommodation. Extraocular movements were intact. NECK: Palpation of the submandibular region did not reveal any significant lymphadenopathy. The carotids are palpable bilaterally. I do not appreciate any bruits on auscultation. I cannot appreciate any jugular venous distention, although the neck tissue was somewhat redundant. There was no evidence of thyromegaly. LUNGS: Auscultation of the lung apices reveal them to be clear with only occasional crackle, there was no expiratory wheezing and normal respiratory effort without use of accessory muscles. CARDIAC EXAMINATION: Revealed him to be in an irregularly irregular rhythm. There was a diastolic murmur appreciated. PMI was not markedly displaced. Did have a well-healed sternotomy scar. ABDOMEN: Soft and nontender. EXTREMITIES: Evaluation of both wrists revealed radial pulses that were equal in intensity. There was no evidence of cyanosis or clubbing. Evaluation of lower extremities revealed only mild edema. There was some ecchymosis. PSYCHIATRIC: The patient did have a masked facies with limited expressive aphasia. LABORATORY STUDIES: Obtained today included a white cell count of 9, hemoglobin of 9 and a platelet count of 148. Sodium was 144, potassium was 3.3, BUN was 20, creatinine was 1.1. Review of his microbiology reveals initial blood cultures growing streptococcus and Enterococcus faecalis. The patient had several imaging studies performed during this hospitalization including a head CT which did not reveal any acute intracranial findings and several chest x-rays, which revealed mild vascular congestion without overt edema and possible atelectasis. A 12-lead EKG had also been obtained at the time of admission which revealed him to be in atrial fibrillation with a right bundle-branch block and left anterior fascicular block. There was no change from past EKGs. Echocardiogram was performed today which revealed the aforementioned vegetation on the pulmonic valve and associated moderate to severe regurgitation. Did have somewhat reduced left ventricular systolic function, with also mild to moderate mitral regurgitation and evidence of poor right ventricular function with dilation of that chamber, pulmonary pressures were also elevated. ASSESSMENT AND PLAN: 1. Pulmonic valve endocarditis. The patient has blood cultures positive for streptococcus and a large vegetation involving the pulmonic valve. At this point, the patient appears to be doing well hemodynamically and has not had recent fevers in starting antibiotic therapy. There was some concern regarding the size of the vegetation and how it affects the valve function. He does have a considerable amount of pulmonic regurgitation, elevated pulmonic pressures, RV dilation with somewhat reduced RV function and dilated IVC on echocardiogram. He does not, however, have overt symptoms or significant edema on exam. At this point, antibiotic therapy has been initiated and will be managed by the infectious disease service with respect to indications for surgery. At this juncture, the patient's stability speaks against the need for surgery despite the significant pulmonic regurgitation. I did have an extensive discussion with the patient and his daughter regarding the option of surgical intervention should it become more obvious that it is necessary and at this point they declined to seek that option. Stated in a different way he is not interested in any surgical therapy at this point. 2. Left ventricular systolic failure. The patient does not have significant dyspnea currently. He does have evidence of LV failure on echocardiogram, etiology of which is unclear. Certainly he has a history of coronary artery disease, but in the past his left ventricle has been normal. This may be related to the infectious process or possibly a stress induced myopathy. He currently is on therapy with beta-alie and ERIKA inhibitor and these could be continued. We can monitor his volume status and use diuretics as necessary for pulmonary vascular congestion or evidence of peripheral edema. 3. Mitral regurgitation, mild to moderate no current symptoms. 4. Pulmonary hypertension, possibly related to his left ventricular failure, although no evidence of pulmonary vascular congestion currently. He also has known obstructive sleep apnea which only recently has been treated. 5. Coronary artery disease. This appears to quiescent, no current symptoms suggestive of angina or coronary insufficiency. Aggressive secondary prevention can be continued. 6. Atrial fibrillation, is chronic in nature. No untoward hemodynamic effects at this time. No symptoms. The patient is appropriately anticoagulated. FINAL RECOMMENDATIONS: 1. Continue antibiotic therapy for endocarditis as directed by the infectious disease service. 2. No pressing indications for surgical management. 3. The patient and daughter currently in agreement that surgical options will not be pursued at this time even if necessary. 4. Monitor volume status closely and use diuretics as needed for pulmonary vascular congestion or peripheral edema secondary to right heart failure. 5. Continue anticoagulation both for atrial fibrillation as well as prophylaxis against thromboembolic events related to this large pulmonic valve vegetation. MTDD
[2017-02-04] MEDS: ROPINIROLE HCL 0.25 MG TAB PO SCH (20:27)
[2017-02-04] MEDS: FUROSEMIDE 40 MG TAB PO SCH (20:27)
[2017-02-04] MEDS: FINASTERIDE 5 MG TAB PO SCH (20:27)
[2017-02-04] MEDS: DONEPEZIL HCL 5 MG TAB PO SCH (20:28)
[2017-02-04] MEDS ORDERED: CHOLESTYRAMINE LIGHT 4 GM PKT PO ONE (22:05)
[2017-02-05] VITALS (7 sets, daily range): BP systolic 152–180; BP diastolic 83–111; PULSE 59–77; TEMP 36.4–36.9; O2SAT 97–99
[2017-02-05] MEDS: PIPERACILL/TAZOBAC IV 4.5 GM in DEXTROSE 5% 100ML 100 ML IV SCH ×3 (04:02→20:02)
[2017-02-05 06:18] LABS: PROTHROMBIN TIME (PATIENT) 40.2 SECONDS (9.0-12.0)
[2017-02-05 06:38] LABS: INR 3.6 (0.9-1.1)
[2017-02-05 07:37] LABS: BASO % 0.1 %; BASO ABS # 0.01 K/uL (0-0.2); EOS % 0.5 %; HEMATOCRIT 28.3 % (42-52); IG% 0.4 %; LYMPH % 13.8 %; LYMPH ABS # 1.45 K/uL (1.2-3.4); MEAN CELL VOLUME 92.2 fL (80-100); MEAN CORPUSCULAR HEMOGLOBIN 28.7 pg (25-34); MEAN PLATELET VOLUME 10.4 fL (7.4-10.4); MONO % 8.9 %; NEUT % 76.3 %; PLATELET COUNT 153 K/uL (130-400); RED BLOOD COUNT 3.07 M/uL (4.7-6.1); WHITE BLOOD COUNT 10.51 K/uL (4.8-10.8)
[2017-02-05 07:38] LABS: MEAN CORPUSCULAR HGB CONC 31.1 g/dl (32-36)
[2017-02-05 08:00] LABS: COMPLETE YES
[2017-02-05 08:06] LABS: ALB/GLOB RATIO 0.4 (0.9-2); BUN/CREATININE RATIO 17.4 (10-20); CALCIUM 8.1 mg/dl (8.5-10.1); POTASSIUM 3.7 mmol/L (3.5-5.1)
[2017-02-05] MEDS: METOPROLOL TARTRATE 25 MG TAB PO SCH ×2 (09:00→20:05)
[2017-02-05] MEDS: AMLODIPINE BESYLATE 5 MG TAB PO SCH (10:12)
[2017-02-05] MEDS: ASPIRIN 81 MG ECTAB PO SCH (10:15)
[2017-02-05] MEDS: RISPERIDONE 0.5 MG TAB PO SCH ×2 (10:16→20:06)
[2017-02-05] MEDS: POTASSIUM CHLORIDE 20 MEQ TABCR PO SCH ×2 (10:16→14:30)
[2017-02-05] MEDS: SERTRALINE HCL 100 MG TAB PO SCH (10:17)
[2017-02-05] MEDS: SIMVASTATIN 20 MG TAB PO SCH (10:17)
[2017-02-05] MEDS: LISINOPRIL 40 MG TAB PO SCH (10:18)
[2017-02-05] MEDS: FUROSEMIDE 80 MG TAB PO SCH ×2 (10:18→20:04)
[2017-02-05] MEDS: FERROUS GLUCONATE 324 MG TAB PO SCH (10:19)
[2017-02-05] MEDS: CHOLESTYRAMINE LIGHT 4 GM PKT PO SCH ×2 (10:20→22:01)
--- NOTE | 2017-02-05 11:08 | CARDIOLOGY PROGRESS NOTE ---
DATE: 02/05/2017 SUBJECTIVE: This morning, Mr. Hill claims to be feeling well. He was eating breakfast with assistance when I approached him today. He denied pain in any location including low back pain. He states this is improved from yesterday. He denies significant breathing trouble. PHYSICAL EXAMINATION: GENERAL: He was alert and oriented. He answered all questions appropriately. VITAL SIGNS: Include blood pressure 156/83 with pulse of 59. LUNGS: Auscultation of both lung apices revealed them to be clear with only occasional crackles. There were some upper airway sounds as well. CARDIAC EXAMINATION: Revealed an irregularly irregular rhythm with what appeared to be a tumor plop, but no significant murmur. EXTREMITIES: Evaluation of lower extremities did reveal significant peripheral edema and overall, he seems to be somewhat edematous. LABORATORY STUDIES: Obtained today included a white cell count of 10.5, a hemoglobin of 8.8, and a platelet count of 153. Sodium is 143, potassium is 3.7, BUN was 17, and creatinine was 1. Liver function tests are mildly elevated at 112 and 145. ASSESSMENT AND PLAN: 1. Pulmonic valve endocarditis, currently being treated for streptococcus and Enterococcus bacteremia. At this point, we will only pursue medical therapy as the patient once again stated today he is not interested in additional surgery should they become necessary. 2. Atrial fibrillation. The patient has well controlled rates. He has been maintained on anticoagulation, which may provide some protection against embolic event related to his large agitation. 3. Congestive heart failure. While he has not complained of symptoms of dyspnea, he does have evidence of mild edema. His echocardiogram suggested plethora of the IVC and he does have a somewhat elevated liver enzymes, all suggesting an element of passive congestion likely related to pulmonary regurgitation and mild right heart failure. He is on a diuretic regimen currently, consisting of 80 mg of Lasix in the morning and 40 in the evening, but has not effected any significant diuresis over the past several days. As such, I would intensify his diuretic regimen perhaps 80 mg twice daily, may be even switch to an intravenous preparation or some element of diuresis, obviously monitoring electrolytes and renal function closely. 4. Coronary artery disease. The patient does not have any current symptoms suggestive of angina or coronary insufficiency. Continue secondary prevention. 5. Left ventricular systolic failure. His echocardiogram suggests an element of reduced left ventricular function. Once again, he has not complained of dyspnea, but likely has an element of pulmonary vascular congestion even if it is mild. Would simply restate the prior recommendation for more aggressive diuresis at this point and maintenance on his beta alie and ERIKA inhibitor.
[2017-02-05 11:28] LABS: BASO % 0.1 %; BASO ABS # 0.01 K/uL (0-0.2); COMPLETE YES; EOS % 0.5 %; HEMATOCRIT 32.2 % (42-52); IG% 0.4 %; LYMPH % 16.5 %; LYMPH ABS # 1.61 K/uL (1.2-3.4); MEAN CORPUSCULAR HGB CONC 30.4 g/dl (32-36); MEAN PLATELET VOLUME 9.9 fL (7.4-10.4); MONO % 6.5 %; PLATELET COUNT 156 K/uL (130-400); WHITE BLOOD COUNT 9.76 K/uL (4.8-10.8)
[2017-02-05 11:53] LABS: BUN/CREATININE RATIO 17.5 (10-20); CALCIUM 8.5 mg/dl (8.5-10.1); POTASSIUM 3.8 mmol/L (3.5-5.1)
[2017-02-05 12:03] LABS: ALB/GLOB RATIO 0.4 (0.9-2)
[2017-02-05] MEDS: ACETAMINOPHEN 325 MG TAB PO PRN (14:33)
--- NOTE | 2017-02-05 14:43 | Progress Note ---
Subjective Date of Service: Feb 05, 2017. Subjective Pt evaluation today including: conversation w/ patient, conversation w/ family , physical exam, chart review, lab review, review of studies, conversation w/ car sales consultant, review of inpatient medication list Pain: Denies any pain Voiding: macario catheter in place Pt is seen and examined by me. Pt denies chest pain, SOB, dizziness and palpitation. Pt denies fever, chills, rigors and sweats. Pt daughter and son in law at the bed side.Pt has Macario cath placed, no blood noticed. Pt is lying comfortably in bed. Problem List Medical Problems: (1) CHF (congestive heart failure) Status: Acute (2) New onset a-fib Status: Acute (3) Sepsis Status: Acute (4) Endocarditis status: Acute (5) Elevated LFT status : acute Review of Systems Constitutional: No chills, No fever, No sweats Eyes: No discharge, No redness Respiratory: No cough, No shortness of breath, No wheezing Cardiac: No chest pain Abdomen: No constipation, No diarrhea, No nausea, No pain, No vomiting Musculoskeletal: No joint pain Male : No dysuria, No urinary frequency Neurologic: + memory loss Psychiatric: No anxiety, No insomnia Heme: No abnormal bleeding/bruising Skin: + rash Medications Medications (Trade) Dose Ordered Sig/María Route Start Time Stop Time Status Last Admin Dose Admin Warfarin Sodium (Coumadin Tab) 2 mg Q3D@1600 PO 02/04/17 16:00 03/06/17 15:59 02/04/17 16:27 2 MG Cholestyramine Resin (Questran Powder Light) 4 gm BID@10,22 PO 02/05/17 10:00 03/07/17 09:59 02/05/17 10:20 4 GM Cholestyramine Resin (Questran Powder Light) 4 gm 2205 ONCE PO 02/04/17 22:05 02/04/17 22:15 DC 02/04/17 22:41 4 GM Objective Vital Signs Date Time Temp Pulse Resp B/P Pulse Ox O2 Delivery O2 Flow Rate FiO2 02/05/17 12:43 180/111 02/05/17 12:35 36.7 72 27 177/96 98 Nasal Cannula 2.0 02/05/17 07:13 36.4 59 26 156/83 97 Nasal Cannula 2.0 02/05/17 04:08 36.7 68 22 159/97 97 Nasal Cannula 2.0 02/05/17 04:00 Nasal Cannula 2.0 02/05/17 00:00 Nasal Cannula 2.0 02/04/17 22:53 37.0 75 24 173/80 95 Nasal Cannula 2.0 02/04/17 20:00 Nasal Cannula 2.0 02/04/17 18:57 37.6 80 27 156/75 95 Nasal Cannula 2.0 02/04/17 16:00 Nasal Cannula 2.0 02/04/17 15:07 36.8 70 28 147/78 97 Nasal Cannula 2.0 Physical Exam General Appearance: no apparent distress Neck: supple, no adenopathy Respiratory/Chest: chest non-tender, normal breath sounds, no respiratory distress Cardiovascular: no murmur, + irregularly irregular, + pertinent finding (1+ edema bilateral LE) Abdomen: normal bowel sounds, non tender, soft Extremities: normal range of motion, non-tender, no calf tenderness Neurologic/Psychiatric: no motor/sensory deficits, alert, normal mood/affect Skin: no rash Lymphatic: no adenopathy Laboratory Results Last 24 Hours Test 02/04/17 14:41 02/05/17 05:31 02/05/17 11:20 Sodium Level 144 mmol/L 143 mmol/L 144 mmol/L Potassium Level 3.3 mmol/L 3.7 mmol/L 3.8 mmol/L Chloride Level 107 mmol/L 106 mmol/L 106 mmol/L Carbon Dioxide Level 27 mmol/L 26 mmol/L 28 mmol/L Anion Gap 10.0 mmol/L 11.0 mmol/L 10.0 mmol/L Blood Urea Nitrogen 20 mg/dl 17 mg/dl 18 mg/dl Creatinine 1.10 mg/dl 1.00 mg/dl 1.00 mg/dl Est Creatinine Clear Calc Drug Dose 63.5 ml/min 69.6 ml/min 69.6 ml/min Estimated GFR () 72.1 80.9 80.9 Estimated GFR (Non- 62.2 69.8 69.8 BUN/Creatinine Ratio 18.4 17.4 17.5 Random Glucose 173 mg/dl 153 mg/dl 139 mg/dl Calcium Level 8.2 mg/dl 8.1 mg/dl 8.5 mg/dl White Blood Count 10.51 K/uL 9.76 K/uL Red Blood Count 3.07 M/uL 3.50 M/uL Hemoglobin 8.8 g/dL 9.8 g/dL Hematocrit 28.3 % 32.2 % Mean Corpuscular Volume 92.2 fL 92.0 fL Mean Corpuscular Hemoglobin 28.7 pg 28.0 pg Mean Corpuscular Hemoglobin Concent 31.1 g/dl 30.4 g/dl Platelet Count 153 K/uL 156 K/uL Mean Platelet Volume 10.4 fL 9.9 fL Neutrophils (%) (Auto) 76.3 % 76.0 % Lymphocytes (%) (Auto) 13.8 % 16.5 % Monocytes (%) (Auto) 8.9 % 6.5 % Eosinophils (%) (Auto) 0.5 % 0.5 % Basophils (%) (Auto) 0.1 % 0.1 % Neutrophils # (Auto) 8.02 K/uL 7.42 K/uL Lymphocytes # (Auto) 1.45 K/uL 1.61 K/uL Monocytes # (Auto) 0.94 K/uL 0.63 K/uL Eosinophils # (Auto) 0.05 K/uL 0.05 K/uL Basophils # (Auto) 0.01 K/uL 0.01 K/uL RDW Standard Deviation 55.9 fL 55.3 fL RDW Coefficient of Variation 16.6 % 16.4 % Immature Granulocyte % (Auto) 0.4 % 0.4 % Immature Granulocyte # (Auto) 0.04 K/uL 0.04 K/uL Red Blood Cell Morphology Unremarkable Prothrombin Time 40.2 SECONDS Prothromb Time International Ratio 3.6 Total Bilirubin 0.4 mg/dl 0.4 mg/dl Aspartate Amino Transf (AST/SGOT) 112 U/L 95 U/L Alanine Aminotransferase (ALT/SGPT) 145 U/L 142 U/L Alkaline Phosphatase 85 U/L 89 U/L Total Protein 6.9 gm/dl 7.7 gm/dl Albumin 2.0 gm/dl 2.2 gm/dl Globulin 4.9 gm/dl 5.5 gm/dl Albumin/Globulin Ratio 0.4 0.4 Assessment and Plan Metabolic encephalopathy likely 2/2 UTI + HAP/Aspiration pneumonia (meets sirs criteria), endocarditis recent echocardiogram shows pulmonic vegetation. Metabolic encephalopathy resolved. ID is on case , continue Zosyn, and Vancomycin. Patient WBCs trending downward. Patient is afebrile. Cardiology on case secondary for pulmonic vegetation. Blood cultures + streptococcus and Enterococcus bacteremia IV NSS Repeat blood cultures obtained, So far preliminary report does not show any bacteria. X-ray chest; 1. No change from the prior study. 2. Stable cardiomegaly 3. Increased left basilar markings, atelectatic versus inflammatory 4. Mild central vascular congestion. No evidence of edema 5.Puree diet with [employer] Thick Liquids. 6. Aspiration precautions: No straws, fully alert and upright for all oral intake, remain upright for 15-20 minutes after meals, keep head of bed elevated at least 30-degrees at all times, utilize stringent oral hygiene protocol, encourage double swallow and throat-clearing/re-swallowing. 7.Oral Hygiene Protocol: Clean all surfaces of mouth with soft toothbrush and toothpaste PRIOR TO oral intake in the morning, after meals, and before bed in evening. 8.Pt would benefit from f/u with RN LVN services at SNF to implement diet and aspiration precautions in patient's residential setting. Congestive heart failure and elevated LFT 1) No dyspnea however Lower Extremity edema His echocardiogram suggested plethora of the IVC and he does have a somewhat elevated liver enzymes, all suggesting an element of passive congestion likely related to pulmonary regurgitation and mild right heart failure. 2) Cardiology following the case, and recommended Lasix 80mg BID. we will increase Lasix to 8omg BID, and also KCl 30meq po TID 3) US Liver pending, follow CMP in am. Hypokalemia 40 meq- replaced Recheck AM Ambulatory dysfunction As per Pt/Ot Afib, rate controlled Currently in A. fib on monitor Continue Coumadin, Lopressor INR is 3.6 today. Hold Coumadin and repeat PT/INR in the a.m. Anemia Heme test stools, Hgb improved 9.8 HTN: Fairly Controlled, Continue amlodipine, Lisinopril, Lopressor Chronic pain Hold Oxycodone Dementia Hold Memantine, continue Donepezil, Risperidone RLS: Continue Requip Depression/Anxiety Continue Sertraline Hold home Ativan BPH Continue finasteride DVT proph Coumadin Code: DNR Continued [facility] stay due to: multiple IV medications needed Discharge planning: uncertain
[2017-02-05] MEDS ORDERED: VANCOMYCIN TROUGH SCH (15:30)
[2017-02-05] MEDS: WARFARIN SOD 3 MG TAB PO SCH (16:00)
[2017-02-05] MEDS: VANCOMYCIN INJ 1,200 MG in SODIUM CHLORIDE 0.9% 250ML 250 ML IV SCH (17:21)
--- NOTE | 2017-02-05 19:07 | DIAGNOSTIC IMAGING REPORT ---
ABDOMINAL ULTRASOUND, RIGHT UPPER QUADRANT HISTORY: endocarditis. COMPARISON: Abdomen and pelvis CT 02/11/2008. FINDINGS: Pancreas: The pancreatic tail is obscured by overlying bowel gas. The remaining portions of the pancreas are within normal limits. Liver: The liver is echogenic consistent with fatty change. Mildly enlarged measuring 19 cm in length. Gallbladder: The gallbladder is surgically absent. CBD: 5 Right kidney: No hydronephrosis. IMPRESSION: 1. Mild hepatomegaly demonstrating fatty change. 2. Normal caliber common bile duct. 3. Cholecystectomy. Electronically signed by: Earl Frankel M.D. 02/05/2017 7:05 PM Dictated Date/Time: 02/05/2017 7:02 PM
[2017-02-05] MEDS: DONEPEZIL HCL 5 MG TAB PO SCH (20:06)
[2017-02-05] MEDS: FINASTERIDE 5 MG TAB PO SCH (20:07)
[2017-02-05] MEDS: ROPINIROLE HCL 0.25 MG TAB PO SCH (20:07)
[2017-02-05] MEDS: POTASSIUM CHLORIDE 10 MEQ TABCR PO SCH (20:15)
--- NOTE | 2017-02-05 21:40 | Pharmacy Progress Note ---
Pharmacy Antibiotic Prog Note Date of Service Feb 05, 2017. Subjective The patient is currently receiving Vancomycin 1200 mg (~11mg/kg) IV every 18 hours for aspiration pneumonia. The patient is currently on day # 57 of Vancomycin IV therapy. Objective Height (Feet): 5 Height (Inches): 8.00 Weight (Kilograms): 113.400 Levels: Item Value Date Time Vancomycin Level Trough 17.4 mcg/ml 02/05/17 1538 Vancomycin Level Trough 14.2 mcg/ml 02/03/17 0940 Lab Results (24hrs): Laboratory Tests Test 02/05/17 05:31 02/05/17 11:20 BUN/Creatinine Ratio 17.4 17.5 Blood Urea Nitrogen 17 mg/dl 18 mg/dl Creatinine 1.00 mg/dl 1.00 mg/dl White Blood Count 10.51 K/uL 9.76 K/uL Red Blood Count 3.07 M/uL 3.50 M/uL Hemoglobin 8.8 g/dL 9.8 g/dL Hematocrit 28.3 % 32.2 % Mean Corpuscular Volume 92.2 fL 92.0 fL Mean Corpuscular Hemoglobin 28.7 pg 28.0 pg Mean Corpuscular Hemoglobin Concent 31.1 g/dl 30.4 g/dl Platelet Count 153 K/uL 156 K/uL Mean Platelet Volume 10.4 fL 9.9 fL Neutrophils (%) (Auto) 76.3 % 76.0 % Lymphocytes (%) (Auto) 13.8 % 16.5 % Monocytes (%) (Auto) 8.9 % 6.5 % Eosinophils (%) (Auto) 0.5 % 0.5 % Basophils (%) (Auto) 0.1 % 0.1 % Neutrophils # (Auto) 8.02 K/uL 7.42 K/uL Lymphocytes # (Auto) 1.45 K/uL 1.61 K/uL Monocytes # (Auto) 0.94 K/uL 0.63 K/uL Eosinophils # (Auto) 0.05 K/uL 0.05 K/uL Basophils # (Auto) 0.01 K/uL 0.01 K/uL Micro Results: Item Value Date Time Gram Stain Isaiah Batch 02/05/17 1726 Sputum Expectorated Sputum Pending WBC Smear Received 02/05/17 0000 Stool Pending C.difficile Toxin B Gene (PCR) - Final Complete 02/04/17 0550 Stool No C. difficile toxin B gene detected Blood Culture - Preliminary Resulted 02/02/17 1442 Blood NO GROWTH TO DATE. Blood Culture - Preliminary Resulted 02/02/17 1440 Blood NO GROWTH TO DATE. Urine Culture - Final Complete 02/01/17 1858 Urine,Catheterized THREE TYPES OF ORGANISMS PRESENT, ALL... Blood Culture - Final Complete 02/01/17 1840 Blood Enterococcus Faecalis#2 Blood Culture - Final Complete 02/01/17 1815 Blood Enterococcus Faecalis#2 MRSA DNA Surveillance Screen - Final Complete 02/01/17 0000 Nasal Specimen Negative for MRSA by DNA Probe SPEC #: [id number] ISAIAH: 02/01/17 STATUS: COMP REQ #: [id number] RECD: 02/01/[address]: Zackary Gama DO SOURCE: BLOOD ENTR: 02/01/17 [facility] DR: Earl Lombardo MD [facility]: ORDERED: BLOOD CULTURE Procedure Result Verified Site BLD CULT Final 02/05/17-1423 Organism 1 ENTEROCOCCUS FAECALIS#2 SENS NO SENSITIVITY TO FOLLOW Organism 2 ENTEROCOCCUS FAECALIS SENS SENSITIVITY TO FOLLOW IDENTIFICATION AND SUSCEPTIBILITY TESTING HAVE CONFIRMED THE TWO ORGANISMS PREVIOUSLY REPORTED ARE THE SAME ORGANISM. NO SUSCEPTIBILITY RESULTS WILL BE GENERATED ON THE SECOND ISOLATE. Phoned Positive Blood Culture Gram Stain Report to MAYCOL GRANADOS on 02/02/17 At 0909 By STEWAL. Results were verbalized back to STEWAL. 2. ENTEROCOCCUS FAECALIS Target Route Dose RX AB Cost M.I.C. IQ ------ ----- ------ -- ------ -------- - ------ AMPICILLIN S <=2 GENT SYNERGY R >500 VANCOMYCIN S 2 PENICILLIN S 2 DAPTOMYCIN S 2 STREP SYNERGY S <=1000 Streptomycin Synergy Screen S Gentamicin Synergy Screen R S = SENSITIVE I = INTERMEDIATE R = RESISTANT Recent Pertinent Medications Item Value Date Time Ceftriaxone Sodium 1 gm 02/01/17 1757 (Rocephin Inj) NOW STAT/IV 02/01/17 1847 Piperacillin Sod/ 120 ml @ 28.75 mls/hr 02/02/17 0200 Tazobactam Sod Q8H/IV 02/05/17 2002 4.5 gm/Dextrose Piperacillin Sod/ 4.5 gm 02/01/17 2100 Tazobactam Sod 2100/IV 02/01/17 2200 (Zosyn Iv) Vancomycin HCl 546 ml @ 200 mls/hr 02/01/17 2130 2300 mg/Sodium 2130/IV 02/01/17 2204 Chloride Vancomycin HCl 274 ml @ 125 mls/hr 02/02/17 1600 1200 mg/Sodium Q18H/IV 02/05/17 1721 Chloride Assessment & Plan Pharmacy has been consulted to dose and monitor Vancomycin for aspiration pneumonia in an obese patient (BMI greater than 35kg/m2; BMI= 38kg/m2). Vancomycin trough level of 17.4mcg/mL is: Therapeutic Continue Vancomycin 1200 mg (~11mg/kg) IV every 18 hours. * Goal trough level estimate: between 15 - 20 mcg/mL. * Trough or random levels to be ordered if there is a significant change in the patient's renal function, health status, or if therapy is to extend beyond the P &T approved time of 7 days to ensure therapeutic concentrations without causing Vancomycin accumulation and toxicity. Pharmacy will continue to follow and will adjust dose/frequency as necessary. Thank you
[2017-02-06] VITALS (7 sets, daily range): BP systolic 131–169; BP diastolic 81–98; PULSE 62–78; TEMP 36.5–36.8; O2SAT 92–98
[2017-02-06] MEDS: POTASSIUM CHLORIDE INJ 40 MEQ in SODIUM CHLORIDE 0.9% 1000ML 1,000 ML IV SCH (02:14)
[2017-02-06] MEDS: PIPERACILL/TAZOBAC IV 4.5 GM in DEXTROSE 5% 100ML 100 ML IV SCH ×2 (02:14→11:00)
[2017-02-06] MEDS ORDERED: ASPIRIN 81 MG CHEW PO SCH ×2 (08:00→09:00)
[2017-02-06] MEDS: SERTRALINE HCL 100 MG TAB PO SCH (08:13)
[2017-02-06] MEDS: METOPROLOL TARTRATE 25 MG TAB PO SCH (08:13)
[2017-02-06] MEDS: AMLODIPINE BESYLATE 5 MG TAB PO SCH (08:13)
[2017-02-06] MEDS: SIMVASTATIN 20 MG TAB PO SCH (08:14)
[2017-02-06] MEDS: FERROUS GLUCONATE 324 MG TAB PO SCH (08:14)
[2017-02-06] MEDS: RISPERIDONE 0.5 MG TAB PO SCH ×2 (08:15→19:50)
[2017-02-06] MEDS: LISINOPRIL 40 MG TAB PO SCH (08:16)
--- NOTE | 2017-02-06 09:19 | Clinical Documentation Query ---
CLINICAL DOCUMENTATION QUERY Dr. HERNANDEZ, For accurate coding the diagnosis of endocarditis must be specified as either acute or chronic, and whether it was POA or not POA In your clinical opinion is this patient being managed for: ( x) Acute endocarditis, POA ( ) Other explanation of clinical findings (Please Explain) ( ) Unable to determine (Please Define) ( ) Need to Discuss ( ) Not Agree The medical record reflects the following clinical findings, treatment, and risk factors. Please clarify and document your clinical opinion in the progress notes and discharge summary. Terms such as "probable", "suspected", "likely", "questionable", "possible", or "still to be ruled out" are acceptable. IF IN AGREEMENT, YOU MUST DOCUMENT ABOVE DIAGNOSTIC STATEMENT IN DAILY PROGRESS NOTES AND DISCHARGE SUMMARY. This document is not part of the patient's record. Thank You, Carrie Quiroz RN [phone]
[2017-02-06] MEDS: FUROSEMIDE 80 MG TAB PO SCH ×2 (09:32→19:51)
[2017-02-06] MEDS: POTASSIUM CHLORIDE 10 MEQ TABCR PO SCH ×3 (09:33→19:51)
[2017-02-06] MEDS: ACETAMINOPHEN 325 MG TAB PO PRN (09:35)
[2017-02-06 09:37] LABS: PROTHROMBIN TIME (PATIENT) 55.5 SECONDS (9.0-12.0)
[2017-02-06 09:38] LABS: INR 4.9 (0.9-1.1)
[2017-02-06 09:43] LABS: CREATININE 0.97 mg/dl (0.60-1.40)
[2017-02-06] MEDS: CHOLESTYRAMINE LIGHT 4 GM PKT PO SCH ×2 (10:30→21:29)
--- NOTE | 2017-02-06 10:31 | Progress Note ---
Subjective Date of Service: Feb 06, 2017. Subjective Pt evaluation today including: conversation w/ patient, conversation w/ family , physical exam, chart review, lab review, review of studies, conversation w/ environmental remediation consultant, review of inpatient medication list Report doing okay, awake and alert and orientated, conversational, 2 daughters in bedside, generalized weakness, no fever and chill, Problem List Medical Problems: (1) CHF (congestive heart failure) Status: Acute (2) New onset a-fib Status: Acute (3) Sepsis Status: Acute Review of Systems Constitutional: + fatigue, + weakness, No chills, No fever, No problem reported , No sweats, No weight loss Eyes: No diplopia, No discharge, No eye pain, No redness, No worsening of vision ENT: No dental problems, No hearing loss, No nasal symptoms, No sore throat, No tinnitus, No trouble swallowing, No unusual epistaxis Respiratory: No cough, No dyspnea at rest, No dyspnea on exertion, No hemoptysis, No shortness of breath, No sputum, No wheezing Cardiac: No PND, No chest pain, No claudication, No edema, No orthopnea, No palpitations Abdomen: No constipation, No diarrhea, No nausea, No pain, No vomiting Musculoskeletal: No calf pain, No joint pain, No muscle pain, No swelling Male : No dysuria, No hematuria, No incontinence, No nocturia more than once/ night, No slowing stream, No urinary frequency Neurologic: No balance problems, No memory loss, No numbness/tingling, No paralysis, No vertigo, No weakness Psychiatric: No anhedonism, No anxiety, No depression symptoms, No insomnia, No substance abuse Heme: No abnormal bleeding/bruising, No clotting problems, No night sweats, No swollen lymph nodes Endo: No excessive thirst, No excessive urination, No fatigue Skin: No bleeding, No color change, No itch, No new/changing skin lesions, No rash Objective Vital Signs Date Time Temp Pulse Resp B/P Pulse Ox O2 Delivery O2 Flow Rate FiO2 02/06/17 08:00 36.5 75 28 165/95 98 Nasal Cannula 2.0 02/06/17 04:15 Room Air 02/06/17 03:39 36.8 67 24 169/98 97 Nasal Cannula 2.0 02/06/17 00:00 Room Air 02/05/17 23:37 36.4 70 23 165/94 99 Nasal Cannula 2.0 02/05/17 20:00 Room Air 02/05/17 19:31 36.8 71 23 152/94 98 Nasal Cannula 2.0 02/05/17 16:00 Nasal Cannula 2.0 02/05/17 14:57 36.9 77 28 170/95 99 Nasal Cannula 2.0 02/05/17 12:43 180/111 02/05/17 12:35 36.7 72 27 177/96 98 Nasal Cannula 2.0 02/05/17 12:00 Nasal Cannula 2.0 Physical Exam General Appearance: WD/WN, no apparent distress, + obese, + pertinent finding ( mild pale) Eyes: normal inspection, PERRL, EOMI, sclerae normal ENT: normal ENT inspection, hearing grossly normal, pharynx normal Neck: supple, no adenopathy, thyroid normal, no JVD, no carotid bruits, trachea midline Respiratory/Chest: chest non-tender, normal breath sounds, no respiratory distress, no accessory muscle use, + decreased breath sounds Cardiovascular: regular rate, rhythm, no gallop, no JVD, no murmur, + pertinent finding (bilateral hands mild edema) Abdomen: normal bowel sounds, non tender, soft, no organomegaly, no pulsatile mass Extremities: normal range of motion, non-tender, normal inspection, no pedal edema, no calf tenderness, normal capillary refill, pelvis stable Neurologic/Psychiatric: tobacco dipper II-XII nml as tested, no motor/sensory deficits, alert, normal mood/affect, oriented x 3 Skin: normal color, warm/dry, no rash Lymphatic: no adenopathy Laboratory Results Last 24 Hours Test 02/05/17 11:20 02/05/17 15:38 02/06/17 09:12 White Blood Count 9.76 K/uL Red Blood Count 3.50 M/uL Hemoglobin 9.8 g/dL Hematocrit 32.2 % Mean Corpuscular Volume 92.0 fL Mean Corpuscular Hemoglobin 28.0 pg Mean Corpuscular Hemoglobin Concent 30.4 g/dl Platelet Count 156 K/uL Mean Platelet Volume 9.9 fL Neutrophils (%) (Auto) 76.0 % Lymphocytes (%) (Auto) 16.5 % Monocytes (%) (Auto) 6.5 % Eosinophils (%) (Auto) 0.5 % Basophils (%) (Auto) 0.1 % Neutrophils # (Auto) 7.42 K/uL Lymphocytes # (Auto) 1.61 K/uL Monocytes # (Auto) 0.63 K/uL Eosinophils # (Auto) 0.05 K/uL Basophils # (Auto) 0.01 K/uL RDW Standard Deviation 55.3 fL RDW Coefficient of Variation 16.4 % Immature Granulocyte % (Auto) 0.4 % Immature Granulocyte # (Auto) 0.04 K/uL Sodium Level 144 mmol/L Potassium Level 3.8 mmol/L Chloride Level 106 mmol/L Carbon Dioxide Level 28 mmol/L Anion Gap 10.0 mmol/L Blood Urea Nitrogen 18 mg/dl Creatinine 1.00 mg/dl 0.97 mg/dl Est Creatinine Clear Calc Drug Dose 69.6 ml/min 71.2 ml/min Estimated GFR () 80.9 83.9 Estimated GFR (Non- 69.8 72.4 BUN/Creatinine Ratio 17.5 Random Glucose 139 mg/dl Calcium Level 8.5 mg/dl Total Bilirubin 0.4 mg/dl Aspartate Amino Transf (AST/SGOT) 95 U/L Alanine Aminotransferase (ALT/SGPT) 142 U/L Alkaline Phosphatase 89 U/L Total Protein 7.7 gm/dl Albumin 2.2 gm/dl Globulin 5.5 gm/dl Albumin/Globulin Ratio 0.4 Vancomycin Level Trough 17.4 mcg/ml Prothrombin Time 55.5 SECONDS Prothromb Time International Ratio 4.9 Assessment and Plan 81-year-old white male admitted on 02/01/2017 because of Metabolic encephalopathy likely 2/2 UTI + HAP/Aspiration pneumonia (meets sirs criteria) , endocarditis recent echocardiogram shows pulmonic vegetation. Metabolic encephalopathy resolved. ID is on case , continue Zosyn, and Vancomycin. UTI + HAP/Aspiration pneumonia (meets sirs criteria), endocarditis recent echocardiogram shows pulmonic vegetation; stable WBCs continue trending downward. afebrile. Cardiology on case secondary for pulmonic vegetation. Blood cultures + streptococcus and Enterococcus bacteremia Repeat blood cultures obtained, So far preliminary report does not show any bacteria. Puree diet with [employer] Thick Liquids per recommend from speech, continue speech therapy Aspiration precautions: No straws, fully alert and upright for all oral intake, remain upright for 15-20 minutes after meals, keep head of bed elevated at least 30-degrees at all times, utilize stringent oral hygiene protocol, encourage double swallow and throat-clearing/re-swallowing. Oral Hygiene Protocol: Clean all surfaces of mouth with soft toothbrush and toothpaste PRIOR TO oral intake in the morning, after meals, and before bed in evening. Pt would benefit from f/u with FLAG DECORATOR services at SNF to implement diet and aspiration precautions in patient's residential setting. Congestive heart failure and elevated LFT No dyspnea however Lower Extremity edema His echocardiogram suggested plethora of the IVC and he does have a somewhat elevated liver enzymes, all suggesting an element of passive congestion likely related to pulmonary regurgitation and mild right heart failure. Cardiology following the case, and recommended Lasix 80mg BID. We will continue follow CMP in am. Hypokalemia Ambulatory dysfunction Afib, rate controlled Currently in A. fib on monitor Continue Coumadin, Lopressor INR is 3.6 today and we will follow up INR today Anemia HTN: Chronic pain Dementia RLS: Depression/Anxiety BPH The above condition is stable continue current medication DVT proph Coumadin Code: DNR Discharge plan will be per infectious disease final decision of antibiotic, Timing of PICC line and possible back to [facility] soon Discussed with 2 daughters and answered all questions Continued [facility] stay due to: multiple IV medications needed Discharge planning: uncertain
[2017-02-06] MEDS: VANCOMYCIN INJ 1,200 MG in SODIUM CHLORIDE 0.9% 250ML 250 ML IV SCH (10:55)
--- NOTE | 2017-02-06 11:09 | Progress Note ---
Subjective Date of Service: Feb 06, 2017. Subjective Pt evaluation today including: conversation w/ patient, conversation w/ family , physical exam, chart review, lab review pt seen in followup, doing well. feeling better. culture with e. faecalis. repeat culture negative. daughter at bedside, states pt has had multiple uti in recent past. Had echo done over weekend, PV veg noted. pt and family do not want surgery. has been on vanco and zoysn since admission. tolerating well. had few episodes of diarrhea this weekend, but now resolved. No fevers or chills. No chest pain, no sob. no abd pain. all remaining ros reviewed and are negative. Problem List Medical Problems: (1) CHF (congestive heart failure) Status: Acute (2) New onset a-fib Status: Acute (3) Sepsis Status: Acute Objective Vital Signs Date Time Temp Pulse Resp B/P Pulse Ox O2 Delivery O2 Flow Rate FiO2 02/06/17 08:00 36.5 75 28 165/95 98 Nasal Cannula 2.0 02/06/17 04:15 Room Air 02/06/17 03:39 36.8 67 24 169/98 97 Nasal Cannula 2.0 02/06/17 00:00 Room Air 02/05/17 23:37 36.4 70 23 165/94 99 Nasal Cannula 2.0 02/05/17 20:00 Room Air 02/05/17 19:31 36.8 71 23 152/94 98 Nasal Cannula 2.0 02/05/17 16:00 Nasal Cannula 2.0 02/05/17 14:57 36.9 77 28 170/95 99 Nasal Cannula 2.0 02/05/17 12:43 180/111 02/05/17 12:35 36.7 72 27 177/96 98 Nasal Cannula 2.0 02/05/17 12:00 Nasal Cannula 2.0 Physical Exam General Appearance: WD/WN, no apparent distress Eyes: normal inspection Neck: supple Respiratory/Chest: lungs clear, normal breath sounds, no respiratory distress Cardiovascular: regular rate, rhythm, no edema Abdomen: non tender, soft Extremities: non-tender, normal inspection, no pedal edema Neurologic/Psychiatric: alert, oriented x 3 Skin: normal color Laboratory Results Item Value Date Time C.difficile Toxin B Gene (PCR) - Final Complete 02/04/17 0550 Stool No C. difficile toxin B gene detected Blood Culture - Preliminary Resulted 02/02/17 1442 Blood NO GROWTH TO DATE. Blood Culture - Preliminary Resulted 02/02/17 1440 Blood NO GROWTH TO DATE. Blood Culture - Final Complete 02/01/17 1840 Blood Enterococcus Faecalis#2 Blood Culture - Final Complete 02/01/17 1815 Blood Enterococcus Faecalis#2 Last 24 Hours Test 02/05/17 11:20 02/05/17 15:38 02/06/17 09:12 White Blood Count 9.76 K/uL Red Blood Count 3.50 M/uL Hemoglobin 9.8 g/dL Hematocrit 32.2 % Mean Corpuscular Volume 92.0 fL Mean Corpuscular Hemoglobin 28.0 pg Mean Corpuscular Hemoglobin Concent 30.4 g/dl Platelet Count 156 K/uL Mean Platelet Volume 9.9 fL Neutrophils (%) (Auto) 76.0 % Lymphocytes (%) (Auto) 16.5 % Monocytes (%) (Auto) 6.5 % Eosinophils (%) (Auto) 0.5 % Basophils (%) (Auto) 0.1 % Neutrophils # (Auto) 7.42 K/uL Lymphocytes # (Auto) 1.61 K/uL Monocytes # (Auto) 0.63 K/uL Eosinophils # (Auto) 0.05 K/uL Basophils # (Auto) 0.01 K/uL RDW Standard Deviation 55.3 fL RDW Coefficient of Variation 16.4 % Immature Granulocyte % (Auto) 0.4 % Immature Granulocyte # (Auto) 0.04 K/uL Sodium Level 144 mmol/L Potassium Level 3.8 mmol/L Chloride Level 106 mmol/L Carbon Dioxide Level 28 mmol/L Anion Gap 10.0 mmol/L Blood Urea Nitrogen 18 mg/dl Creatinine 1.00 mg/dl 0.97 mg/dl Est Creatinine Clear Calc Drug Dose 69.6 ml/min 71.2 ml/min Estimated GFR () 80.9 83.9 Estimated GFR (Non- 69.8 72.4 BUN/Creatinine Ratio 17.5 Random Glucose 139 mg/dl Calcium Level 8.5 mg/dl Total Bilirubin 0.4 mg/dl Aspartate Amino Transf (AST/SGOT) 95 U/L Alanine Aminotransferase (ALT/SGPT) 142 U/L Alkaline Phosphatase 89 U/L Total Protein 7.7 gm/dl Albumin 2.2 gm/dl Globulin 5.5 gm/dl Albumin/Globulin Ratio 0.4 Vancomycin Level Trough 17.4 mcg/ml Prothrombin Time 55.5 SECONDS Prothromb Time International Ratio 4.9 Assessment and Plan (1) Sepsis Assessment & Plan: discussed options with pt and family regarding abx. Family does not want to have treatment with aminoglycosides (gent resistant). will start amp and rocephin, will need 8 weeks. will follow with ID. ok for picc line, repeat blood cultures negative. hopefully can d/c soon. (2) UTI (urinary tract infection) Continued [facility] stay due to: multiple IV medications needed Discharge planning: uncertain Problem Qualifiers (1) Sepsis: Sepsis type: sepsis due to unspecified organism Qualified Codes: A41.9 - Sepsis, unspecified organism (2) UTI (urinary tract infection): Urinary tract infection type: catheter-associated UTI Indwelling urinary catheter type: unspecified Encounter type: initial encounter Qualified Codes : T83.511A - Infection and inflammatory reaction due to indwelling urethral catheter, initial encounter; N39.0 - Urinary tract infection, site not specified
--- NOTE | 2017-02-06 13:44 | CARDIOLOGY PROGRESS NOTE ---
DATE: 02/06/2017 TIME: 12:49 p.m. SUBJECTIVE: Mr. Hill was seen this morning at approximately 8:00 a.m. He denies chest pain, shortness of breath, syncope, near syncope, palpitations. He was unsure if he had any edema. He was alone at that time but his daughters later presented at the bedside, Vickie and Zoila. I revisited the room to meet with them and discussed overall treatment plan. Both he and them agree that conservative management should be taken for endocarditis. They do not wish for invasive measures or surgical approach. They did have several questions which were answered to the best of my ability. OBJECTIVE: VITAL SIGNS: Temperature 36.5 degrees, heart rate 68 beats per minute, respiration rate 27, blood pressure 157/81 mmHg, oxygen saturation is 98% on 2 liters. I's and O's yesterday, 1.5 liters positive. Weight 111.9 kg. GENERAL: No acute distress. He is alert. NECK: No appreciable JVD. CARDIAC EXAM: No ventricular heave, irregularly irregular. Normal S1, S2. A 1/6 diastolic murmur best heard at the left upper sternal border. No rubs or gallops. LUNGS: Clear on anterior auscultation. ABDOMEN: Soft, nontender, nondistended, normoactive bowel sounds, no bruits noted. EXTREMITIES: Trace bilateral lower extremity edema. No cyanosis. No splinter hemorrhages. No Janeway lesions or Osler nodes noted. PSYCHIATRIC: Flat affect. MEDICATIONS: Include amlodipine 5 mg daily, ampicillin 2 g IV q. 6 hours, aspirin 81 mg once daily, ceftriaxone 1 g IV q. 24 hours, Aricept 10 mg daily, Lasix 80 mg b.i.d., lisinopril 40 mg daily, metoprolol tartrate 12.5 mg p.o. b.i.d., Zosyn IV, potassium chloride 30 mEq p.o. t.i.d., Requip 0.5 mg at bedtime, Risperdal 0.25 mg b.i.d., simvastatin 20 mg daily, vancomycin IV, Coumadin. LABORATORY DATA: INR is 4.9, creatinine 0.97, albumin 2.2. Echocardiogram from 02/04/[address] Jamison, moderately reduced LV systolic function. Large vegetation or mass on the pulmonic valve with regurgitation noted. Mild to moderate mitral regurgitation. Dilated right ventricle with reduced systolic function. Echocardiogram images were personally reviewed. Large mass/vegetation noted on pulmonic valve with also reduced LV systolic function. ASSESSMENT AND PLAN: 1. 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 Conservative management is favored by patient and family. He does have pulmonic regurgitation. Infectious disease is managing antibiotic therapy. We discussed the potential for embolization and pulmonary embolism. 2. Atrial fibrillation: He has had persistent if not permanent atrial fibrillation. Continue low dose beta alie. Anticoagulation therapy is currently on hold due to supratherapeutic INR, likely due to antibiotic treatment. Monitor for bleeding. Continue stroke risk reduction as tolerated. 3. Chronic diastolic congestive heart failure: He appears compensated. His Lasix has been increased. At home, he takes Lasix 40 mg twice daily with metolazone 2.5 mg Monday, Monday and Monday. Can resume home dose upon discharge with close followup recommended with cardiology. 4. Hypertension: Blood pressure has been mostly elevated throughout the hospital stay. Titrate medications as appropriate. Could increase amlodipine if no significant worsening of his edema. 5. Multivessel coronary artery disease status post coronary artery bypass graft: No angina. Continue aspirin, statin, beta alie and ERIKA inhibitor therapy. 6. Cardiomyopathy: He has reduced LV systolic function. Continue beta alie and ERIKA inhibitor. We will change metoprolol to carvedilol to see if it can help treat blood pressure more effectively than the metoprolol without causing significant bradycardia with his atrial fibrillation. Titrate medications as able. Conservative therapy. 7. Disposition: I will be away from the hospital tomorrow. Please call for any questions or concerns tomorrow. Upon discharge, he should follow up with cardiology. Patient care has been discussed with Dr. Rendon of the primary service.
--- NOTE | 2017-02-06 15:16 | DIAGNOSTIC IMAGING REPORT ---
SINGLE VIEW CHEST CLINICAL HISTORY: PICC placement. FINDINGS: An AP, portable, upright chest radiograph is compared to study dated 02/04/2017. The examination is degraded by portable technique and patient rotation. A right PICC line has been placed. The tip of the catheter projects over the confluence of the innominate veins. This projects 3 cm above the alesia. The patient is status post midline sternotomy. The heart is enlarged and there is atherosclerotic calcification of the thoracic aorta. The pulmonary vasculature is noncongested. Bibasilar atelectasis is observed. There is no airspace consolidation or large pleural effusion. No pneumothorax is seen. The skeletal structures are osteopenic. The bony thorax is grossly intact. IMPRESSION: 1. A right PICC line has been placed. The tip of the catheter projects over the confluence of the innominate veins. 2. Cardiomegaly without radiographic evidence of congestive failure. 3. No focal airspace consolidation or large pleural effusion is identified. Electronically signed by: Oneil Chaudhary M.D. 02/06/2017 3:14 PM Dictated Date/Time: 02/06/2017 3:12 PM
[2017-02-06] MEDS: CEFTRIAXONE SOD INJ 1 GM in DEXTROSE 5% ADD-VANTAGE 50ML 50 ML IV SCH (15:26)
[2017-02-06] MEDS: WARFARIN SOD 2 MG TAB PO SCH (16:00)
[2017-02-06] MEDS ORDERED: AMPICILLIN IV 2 GM in SODIUM CHLOR 0.9% AD-VAN 50ML 50 ML IV SCH (16:00)
[2017-02-06] MEDS ORDERED: WARFARIN SOD 2 MG TAB PO SCH (16:00)
--- NOTE | 2017-02-06 16:24 | DIAGNOSTIC IMAGING REPORT ---
CHEST ONE VIEW PORTABLE CLINICAL HISTORY: pic reposition tube position COMPARISON STUDY: 02/06/2017 3:16 PM FINDINGS: PICC catheter is now in the right internal jugular vein. No evidence pneumothorax. Moderate stable cardiomegaly. IMPRESSION: PICC catheter is now in the right internal jugular vein. This should be pulled back and repositioned. Electronically signed by: Jason Kirby M.D. 02/06/2017 4:22 PM Dictated Date/Time: 02/06/2017 4:22 PM
--- NOTE | 2017-02-06 16:56 | DIAGNOSTIC IMAGING REPORT ---
CHEST ONE VIEW PORTABLE CLINICAL HISTORY: RIGHT PICC repositioned tube position COMPARISON STUDY: 02/06/2017 FINDINGS: PICC catheter has been pulled back slightly. There is a coil with a loop in the mid internal jugular vein. Tip is in superior vena cava. There is no evidence of pneumothorax. IMPRESSION: The tip is now in the superior vena cava although the mid catheter demonstrates a coil within the internal jugular vein. No evidence for pneumothorax. Electronically signed by: Jason Kirby M.D. 02/06/2017 4:53 PM Dictated Date/Time: 02/06/2017 4:52 PM
[2017-02-06] MEDS: AMPICILLIN IV SCH ×2 (17:30→21:29)
[2017-02-06] MEDS: AD VAN IV SCH ×2 (17:30→21:29)
[2017-02-06] MEDS: SODIUM CHLOR 0.9% IV SCH ×2 (17:30→21:29)
--- NOTE | 2017-02-06 17:44 | DIAGNOSTIC IMAGING REPORT ---
CHEST ONE VIEW PORTABLE CLINICAL HISTORY: Check PICC Placement (4th Attempt) tube position COMPARISON STUDY: 02/06/2017 FINDINGS: Tip is again noted within the right internal jugular vein. The continues to be a coil at the medial right subclavian vein at the juncture with the jugular vein. No evidence pneumothorax. IMPRESSION: Tip is again within the internal jugular vein. The mid catheter is again coiled at the juncture of the right subclavian vein and internal jugular vein. Electronically signed by: Jason Kirby M.D. 02/06/2017 5:42 PM Dictated Date/Time: 02/06/2017 5:40 PM
[2017-02-06] MEDS: FINASTERIDE 5 MG TAB PO SCH (19:51)
[2017-02-06] MEDS: DONEPEZIL HCL 5 MG TAB PO SCH (19:51)
[2017-02-06] MEDS: CARVEDILOL 3.125 MG TAB PO SCH (19:51)
[2017-02-06] MEDS: ROPINIROLE HCL 0.25 MG TAB PO SCH (19:52)
[2017-02-07] VITALS (7 sets, daily range): BP systolic 151–164; BP diastolic 69–96; PULSE 55–72; TEMP 36.7–37; O2SAT 91–99
[2017-02-07] MEDS: AD VAN IV SCH ×4 (03:58→21:50)
[2017-02-07] MEDS: AMPICILLIN IV SCH ×4 (03:58→21:50)
[2017-02-07] MEDS: SODIUM CHLOR 0.9% IV SCH ×4 (03:58→21:50)
[2017-02-07] MEDS: ACETAMINOPHEN 325 MG TAB PO PRN ×2 (04:13→05:36)
[2017-02-07 06:05] LABS: INR 2.6 (0.9-1.1); PROTHROMBIN TIME (PATIENT) 28.5 SECONDS (9.0-12.0)
[2017-02-07 06:28] LABS: BUN/CREATININE RATIO 18.8 (10-20); CALCIUM 8.4 mg/dl (8.5-10.1); CREATININE 0.94 mg/dl (0.60-1.40); MAGNESIUM 2.1 mg/dl (1.8-2.4); POTASSIUM 3.5 mmol/L (3.5-5.1)
[2017-02-07] MEDS: CARVEDILOL 3.125 MG TAB PO SCH ×2 (08:30→20:10)
[2017-02-07] MEDS: POTASSIUM CHLORIDE 10 MEQ TABCR PO SCH ×3 (08:30→20:11)
[2017-02-07] MEDS: FUROSEMIDE 80 MG TAB PO SCH ×2 (08:30→20:14)
[2017-02-07] MEDS: RISPERIDONE 0.5 MG TAB PO SCH ×2 (08:30→20:11)
[2017-02-07] MEDS: LISINOPRIL 40 MG TAB PO SCH (08:30)
[2017-02-07] MEDS: SERTRALINE HCL 100 MG TAB PO SCH (08:30)
[2017-02-07] MEDS: AMLODIPINE BESYLATE 5 MG TAB PO SCH (08:31)
[2017-02-07] MEDS: ASPIRIN 81 MG CHEW PO SCH (08:31)
[2017-02-07] MEDS: SIMVASTATIN 20 MG TAB PO SCH (08:31)
[2017-02-07] MEDS: FERROUS GLUCONATE 324 MG TAB PO SCH (08:31)
[2017-02-07] MEDS ORDERED: METOLAZONE 2.5 MG TAB PO SCH (09:00)
--- NOTE | 2017-02-07 09:00 | Progress Note ---
Subjective Date of Service: Feb 07, 2017. Subjective Pt evaluation today including: conversation w/ patient, conversation w/ family , physical exam, chart review, lab review, review of studies, conversation w/ [facility] consultant, review of inpatient medication list Doing okay, feeling the same, no spiking fever, PICC was placed yesterday, however no possible not in right position Problem List Medical Problems: (1) CHF (congestive heart failure) Status: Acute (2) New onset a-fib Status: Acute (3) Sepsis Status: Acute Review of Systems Constitutional: + fatigue, + weakness, No chills, No fever, No problem reported , No sweats, No weight loss Eyes: No diplopia, No discharge, No eye pain, No redness, No worsening of vision ENT: No dental problems, No hearing loss, No nasal symptoms, No sore throat, No tinnitus, No trouble swallowing, No unusual epistaxis Respiratory: + shortness of breath, No cough, No dyspnea at rest, No dyspnea on exertion, No hemoptysis, No sputum, No wheezing Cardiac: No PND, No chest pain, No claudication, No edema, No orthopnea, No palpitations Abdomen: No constipation, No diarrhea, No nausea, No pain, No vomiting Musculoskeletal: No calf pain, No joint pain, No muscle pain, No swelling Male : No dysuria, No hematuria, No incontinence, No nocturia more than once/ night, No slowing stream, No urinary frequency Neurologic: No balance problems, No memory loss, No numbness/tingling, No paralysis, No vertigo, No weakness Psychiatric: No anhedonism, No anxiety, No depression symptoms, No insomnia, No substance abuse Heme: No abnormal bleeding/bruising, No clotting problems, No night sweats, No swollen lymph nodes Endo: No excessive thirst, No excessive urination, No fatigue Skin: No bleeding, No color change, No itch, No new/changing skin lesions, No rash Objective Vital Signs Date Time Temp Pulse Resp B/P Pulse Ox O2 Delivery O2 Flow Rate FiO2 02/07/17 04:00 Nasal Cannula 2.0 02/07/17 03:21 36.7 65 24 157/92 99 Nasal Cannula 1.5 02/06/17 23:59 Nasal Cannula 2.0 02/06/17 23:39 36.7 62 24 131/81 97 Nasal Cannula 1.5 02/06/17 20:00 98 Nasal Cannula 2.0 02/06/17 19:05 36.7 78 28 169/97 98 Nasal Cannula 2.0 02/06/17 16:00 Nasal Cannula 2.0 02/06/17 15:34 36.5 67 26 147/82 92 Nasal Cannula 2.0 02/06/17 12:20 36.5 68 27 157/81 98 Nasal Cannula 2.0 02/06/17 12:00 Nasal Cannula 2.0 Physical Exam General Appearance: WD/WN, no apparent distress, + obese Eyes: normal inspection, PERRL, EOMI, sclerae normal ENT: normal ENT inspection, hearing grossly normal, pharynx normal Neck: supple, no adenopathy, thyroid normal, no JVD, no carotid bruits, trachea midline Respiratory/Chest: chest non-tender, normal breath sounds, no respiratory distress, no accessory muscle use, + decreased breath sounds Cardiovascular: regular rate, rhythm, no gallop, no JVD, no murmur, + pertinent finding (1+) Abdomen: normal bowel sounds, non tender, soft, no organomegaly, no pulsatile mass Extremities: normal range of motion, non-tender, normal inspection, no pedal edema, no calf tenderness, normal capillary refill, pelvis stable 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, no motor/sensory deficits, alert, normal mood/affect, oriented x 3 Skin: normal color, warm/dry, no rash Lymphatic: no adenopathy Laboratory Results Last 24 Hours Test 02/06/17 09:12 02/07/17 05:34 Prothrombin Time 55.5 SECONDS 28.5 SECONDS Prothromb Time International Ratio 4.9 2.6 Creatinine 0.97 mg/dl 0.94 mg/dl Est Creatinine Clear Calc Drug Dose 71.2 ml/min 71.2 ml/min Estimated GFR () 83.9 87.2 Estimated GFR (Non- 72.4 75.2 Sodium Level 139 mmol/L Potassium Level 3.5 mmol/L Chloride Level 102 mmol/L Carbon Dioxide Level 30 mmol/L Anion Gap 7.0 mmol/L Blood Urea Nitrogen 18 mg/dl BUN/Creatinine Ratio 18.8 Random Glucose 130 mg/dl Calcium Level 8.4 mg/dl Magnesium Level 2.1 mg/dl Total Bilirubin 0.5 mg/dl Direct Bilirubin 0.2 mg/dl Aspartate Amino Transf (AST/SGOT) 53 U/L Alanine Aminotransferase (ALT/SGPT) 112 U/L Alkaline Phosphatase 90 U/L Total Protein 7.1 gm/dl Albumin 2.1 gm/dl Assessment and Plan 81-year-old white male admitted on 02/01/2017 because of Metabolic encephalopathy likely 2/2 UTI + HAP/Aspiration pneumonia (meets sirs criteria) , endocarditis recent echocardiogram shows pulmonic vegetation. Metabolic encephalopathy resolved. Acute endocarditis, POA, stable UTI + HAP/Aspiration pneumonia (meets sirs criteria), endocarditis recent echocardiogram shows pulmonic vegetation; stable Cardiology on case secondary for pulmonic vegetation. Blood cultures + streptococcus and Enterococcus bacteremia Repeat blood cultures obtained, So far preliminary report does not show any bacteria. PICC placed yesterday, but is not in right position, it will reinserted today ID has defined amp and rocephin, for 8 weeks from 02/07/2017, pt need to follow with ID. Puree diet with [place] Thick Liquids per recommend from speech, continue speech therapy, stable Aspiration precautions: No straws, fully alert and upright for all oral intake, remain upright for 15-20 minutes after meals, keep head of bed elevated at least 30-degrees at all times, utilize stringent oral hygiene protocol, encourage double swallow and throat-clearing/re-swallowing. Oral Hygiene Protocol: Clean all surfaces of mouth with soft toothbrush and toothpaste PRIOR TO oral intake in the morning, after meals, and before bed in evening. Pt would benefit from f/u with [facility] at [facility] to implement diet and aspiration precautions in patient's residential setting. Congestive heart failure and elevated LFT, stable No dyspnea however Lower Extremity edema His echocardiogram suggested plethora of the IVC and he does have a somewhat elevated liver enzymes, all suggesting an element of passive congestion likely related to pulmonary regurgitation and mild right heart failure. Cardiology following the case, and recommended Lasix 80mg BID. We will continue follow CMP in am. Hypokalemia Ambulatory dysfunction Afib, rate controlled Currently in A. fib on monitor Continue Coumadin, Lopressor INR is 2.6today, continue current dose of Coumadin Anemia HTN: Chronic pain Dementia RLS: Depression/Anxiety BPH The above condition is stable continue current medication DVT proph Coumadin Code: DNR Replace PICC line today, continue IV antibiotics, planning bed to follow review tomorrow, okay MedSurg Discussed with 2 daughters and answered all questions Continued [facility] stay due to: multiple IV medications needed Discharge planning: uncertain
[2017-02-07] MEDS: CHOLESTYRAMINE LIGHT 4 GM PKT PO SCH ×2 (11:03→21:53)
--- NOTE | 2017-02-07 11:04 | DIAGNOSTIC IMAGING REPORT ---
CHEST ONE VIEW PORTABLE CLINICAL HISTORY: RIGHT PICC line adjust tube position COMPARISON STUDY: Prior study 10:46 AM FINDINGS: Right-sided PICC catheter located in the superior vena cava. Tube position is similar. Slight partial coil within the medial right subclavian vein. IMPRESSION: PICC catheter in superior vena cava. Unchanging small loop/coil medial right subclavian vein. No evidence pneumothorax. Electronically signed by: Jason Kirby M.D. 02/07/2017 11:02 AM Dictated Date/Time: 02/07/2017 11:01 AM
--- NOTE | 2017-02-07 11:05 | DIAGNOSTIC IMAGING REPORT ---
CHEST ONE VIEW PORTABLE CLINICAL HISTORY: Right PICC placement COMPARISON STUDY: Chest radiograph February 06, 2017 at 5:47 PM. FINDINGS: The right PICC is coiled, possibly within the right internal jugular vein. The catheter tip projects over the brachiocephalic vein confluence. There is no pneumothorax. Cardiomegaly is unchanged. There are median sternotomy wires. There is mild left basilar opacity. IMPRESSION: Malpositioned right PICC. A portion of the right PICC is coiled, possibly within the internal jugular vein. Catheter tip projects of the brachiocephalic vein confluence. Electronically signed by: Tim Mitchell M.D. 02/07/2017 11:03 AM Dictated Date/Time: 02/07/2017 11:00 AM
[2017-02-07] MEDS: CEFTRIAXONE SOD INJ 1 GM in DEXTROSE 5% ADD-VANTAGE 50ML 50 ML IV SCH (14:10)
[2017-02-07] MEDS: WARFARIN SOD 2 MG TAB PO SCH (16:00)
[2017-02-07] MEDS: FINASTERIDE 5 MG TAB PO SCH (20:13)
[2017-02-07] MEDS: ROPINIROLE HCL 0.25 MG TAB PO SCH (20:14)
[2017-02-07] MEDS: DONEPEZIL HCL 5 MG TAB PO SCH (20:15)
[2017-02-08 00:15] VITALS: O2SAT 95
[2017-02-08] MEDS: SODIUM CHLOR 0.9% IV SCH ×4 (03:55→22:18)
[2017-02-08] MEDS: AMPICILLIN IV SCH ×4 (03:55→22:18)
[2017-02-08] MEDS: AD VAN IV SCH ×4 (03:55→22:18)
[2017-02-08 06:25] LABS: BASO % 0.2 %; BASO ABS # 0.02 K/uL (0-0.2); COMPLETE YES; EOS % 1.7 %; IG% 0.4 %; LYMPH % 13.7 %; LYMPH ABS # 1.42 K/uL (1.2-3.4); MEAN CELL VOLUME 89.3 fL (80-100); MEAN CORPUSCULAR HGB CONC 31.3 g/dl (32-36); MONO % 8.9 %; NEUT % 75.1 %; PLATELET COUNT 220 K/uL (130-400); RED BLOOD COUNT 3.47 M/uL (4.7-6.1); WHITE BLOOD COUNT 10.33 K/uL (4.8-10.8)
[2017-02-08 06:35] LABS: INR 1.6 (0.9-1.1); PROTHROMBIN TIME (PATIENT) 16.9 SECONDS (9.0-12.0)
[2017-02-08 06:48] LABS: BUN/CREATININE RATIO 17.8 (10-20); CALCIUM 8.4 mg/dl (8.5-10.1); CREATININE 0.85 mg/dl (0.60-1.40); MAGNESIUM 2.2 mg/dl (1.8-2.4); POTASSIUM 4.1 mmol/L (3.5-5.1)
[2017-02-08 07:45] VITALS: BP 163/88; PULSE 78
[2017-02-08] MEDS: POTASSIUM CHLORIDE 10 MEQ TABCR PO SCH ×3 (07:47→20:50)
[2017-02-08] MEDS: FUROSEMIDE 80 MG TAB PO SCH ×2 (07:48→20:54)
[2017-02-08] MEDS: AMLODIPINE BESYLATE 5 MG TAB PO SCH (07:49)
[2017-02-08] MEDS: FERROUS GLUCONATE 324 MG TAB PO SCH (07:49)
[2017-02-08] MEDS: LISINOPRIL 40 MG TAB PO SCH (07:50)
[2017-02-08] MEDS: RISPERIDONE 0.5 MG TAB PO SCH ×2 (07:51→20:52)
[2017-02-08] MEDS: SERTRALINE HCL 100 MG TAB PO SCH (07:52)
[2017-02-08] MEDS: SIMVASTATIN 20 MG TAB PO SCH (07:52)
[2017-02-08] MEDS: ASPIRIN 81 MG CHEW PO SCH (07:53)
[2017-02-08] MEDS: CARVEDILOL 3.125 MG TAB PO SCH (07:53)
[2017-02-08 07:57] VITALS: BP 162/97; PULSE 65; TEMP 37; O2SAT 91
--- NOTE | 2017-02-08 08:41 | CARDIOLOGY PROGRESS NOTE ---
DATE: 02/08/2017 TIMES: 08:16 a.m. SUBJECTIVE: He denies chest pain, shortness of breath, palpitations, or syncope. He asked when he can go home. He had a PICC line placed yesterday. OBJECTIVE: VITAL SIGNS: Temperature 37 degrees, heart rate 65 beats per minute, respiratory rate 16, blood pressure 162/97 mmHg, and oxygen saturation is 91% on room air. I's and O's negative 3 liters yesterday; however, very little intake is charted. He was listed as negative 1.8 liters 2 days ago. Weight is pending today. GENERAL: No acute distress. NECK: Thick. Cannot appreciate JVD. CARDIAC EXAM: No ventricular heave. Irregularly irregular. Normal S1 and S2. No audible murmurs, rubs or gallops. LUNGS: Clear to auscultation bilaterally on anterior auscultation. ABDOMEN: Soft, nontender, and nondistended. Normoactive bowel sounds. EXTREMITIES: Trace bilateral lower extremity edema. No cyanosis. PSYCHIATRIC: Affect is flat. MEDICATIONS: Include aspirin 81 mg daily, amlodipine 5 mg daily, ampicillin 2 grams IV q. 6 hours, carvedilol 3.125 mg p.o. b.i.d., ceftriaxone 1 gram IV q. 24 hours, Lasix 80 mg twice daily, lisinopril 40 mg daily, potassium chloride 30 mEq p.o. t.i.d., simvastatin 20 mg daily, and Coumadin received 2 mg last night. LABORATORY DATA: White blood cell count is 10.3, hemoglobin 9.7, and platelets 220. INR is 1.6. Sodium 139, potassium 4.1, BUN 15, and creatinine 0.85. ALT 90 and trending downward. Albumin is 2.1. ASSESSMENT AND PLAN: 1. Endocarditis: It is pulmonic valve endocarditis. Conservative management is favored by the patient and family members. IV antibiotics as per infectious disease consultation. 2. Atrial fibrillation: He has what appears to be permanent atrial fibrillation and is asymptomatic. He is well rate controlled. Anticoagulation therapy was restarted last evening as he was supertherapeutic with antibiotic therapy. Adjust Coumadin appropriately while on antibiotic treatment. Monitor closely. 3. Chronic diastolic congestive heart failure: His volume status appears reasonable. Overall, he appears compensated. He has had much more edema in the past. Some edema could be accounted for hypoalbuminemia as well. He is diuresing very nicely currently on current dose of diuretic and would continue Lasix 80 mg twice daily for now. Upon discharge, would resume his chronic dose, which is Lasix 40 mg twice daily with metolazone Monday, Monday, and Monday as he has done well with that dose. 4. Hypertension: He continues to be hypertensive. We will titrate carvedilol both for hypertension and cardiomyopathy. 5. Multivessel coronary artery disease, status post coronary artery bypass graft: No angina. Continue aspirin, statin, beta alie and ERIKA inhibitor therapy. 6. Cardiomyopathy: Could be secondary to acute illness. His LV systolic function has reduced. He also has ischemic heart disease. We will titrate beta alie. Continue ERIKA inhibitor. Conservative management as per the patient and family wishes. 7. Disposition: Please call for any further questions or concerns from a cardiac standpoint. He should also follow up in cardiology office within a few weeks of discharge.
[2017-02-08] MEDS: CHOLESTYRAMINE LIGHT 4 GM PKT PO SCH ×2 (09:27→22:18)
--- NOTE | 2017-02-08 10:58 | Progress Note ---
Subjective Date of Service: Feb 08, 2017. Subjective Pt evaluation today including: conversation w/ patient, conversation w/ family , physical exam, chart review, lab review, review of studies, review of inpatient medication list Doing fairly okay, generalized weakness is the same, but awake and alert conversational, has bowel movement, chronic Carr catheter has normal color urination Problem List Medical Problems: (1) CHF (congestive heart failure) Status: Acute (2) New onset a-fib Status: Acute (3) Sepsis Status: Acute Review of Systems Constitutional: No chills, No fatigue, No fever, No problem reported, No sweats , No weakness, No weight loss Eyes: No diplopia, No discharge, No eye pain, No redness, No worsening of vision ENT: No dental problems, No hearing loss, No nasal symptoms, No sore throat, No tinnitus, No trouble swallowing, No unusual epistaxis Respiratory: No cough, No dyspnea at rest, No dyspnea on exertion, No hemoptysis, No shortness of breath, No sputum, No wheezing Cardiac: No PND, No chest pain, No claudication, No edema, No orthopnea, No palpitations Abdomen: No constipation, No diarrhea, No nausea, No pain, No vomiting Musculoskeletal: No calf pain, No joint pain, No muscle pain, No swelling Male : No dysuria, No hematuria, No incontinence, No nocturia more than once/ night, No slowing stream, No urinary frequency Neurologic: No balance problems, No memory loss, No numbness/tingling, No paralysis, No vertigo, No weakness Psychiatric: No anhedonism, No anxiety, No depression symptoms, No insomnia, No substance abuse Heme: No abnormal bleeding/bruising, No clotting problems, No night sweats, No swollen lymph nodes Endo: No excessive thirst, No excessive urination, No fatigue Skin: No bleeding, No color change, No itch, No new/changing skin lesions, No rash Objective Vital Signs Date Time Temp Pulse Resp B/P Pulse Ox O2 Delivery O2 Flow Rate FiO2 02/08/17 08:00 Room Air 02/08/17 07:57 37.0 65 16 162/97 91 Room Air 02/08/17 07:45 78 163/88 02/08/17 00:15 95 Room Air 02/07/17 23:35 36.9 64 18 151/96 92 Room Air 02/07/17 16:12 37.0 72 22 164/87 95 Nasal Cannula 02/07/17 16:00 95 Room Air 02/07/17 14:53 95 02/07/17 13:57 Room Air 02/07/17 13:30 36.8 71 22 163/94 91 Room Air 02/07/17 12:00 Room Air 02/07/17 11:57 36.7 55 24 151/69 98 Room Air Physical Exam General Appearance: WD/WN, no apparent distress, + obese Eyes: normal inspection, PERRL, EOMI, sclerae normal ENT: normal ENT inspection, hearing grossly normal, pharynx normal Neck: supple, no adenopathy, thyroid normal, no JVD, no carotid bruits, trachea midline Respiratory/Chest: chest non-tender, normal breath sounds, no respiratory distress, no accessory muscle use, + decreased breath sounds Cardiovascular: regular rate, rhythm, no edema, no gallop, no JVD, no murmur Abdomen: normal bowel sounds, non tender, soft, no organomegaly, no pulsatile mass, + pertinent finding (Carr catheter in place) Extremities: normal range of motion, normal inspection, no pedal edema, no calf tenderness, normal capillary refill, pelvis stable, + swelling (1+) Neurologic/Psychiatric: offc spec II-XII nml as tested, no motor/sensory deficits, alert, normal mood/affect, oriented x 3 Skin: normal color, warm/dry, no rash Lymphatic: no adenopathy Laboratory Results Last 24 Hours Test 02/08/17 05:47 White Blood Count 10.33 K/uL Red Blood Count 3.47 M/uL Hemoglobin 9.7 g/dL Hematocrit 31.0 % Mean Corpuscular Volume 89.3 fL Mean Corpuscular Hemoglobin 28.0 pg Mean Corpuscular Hemoglobin Concent 31.3 g/dl Platelet Count 220 K/uL Mean Platelet Volume 10.0 fL Neutrophils (%) (Auto) 75.1 % Lymphocytes (%) (Auto) 13.7 % Monocytes (%) (Auto) 8.9 % Eosinophils (%) (Auto) 1.7 % Basophils (%) (Auto) 0.2 % Neutrophils # (Auto) 7.75 K/uL Lymphocytes # (Auto) 1.42 K/uL Monocytes # (Auto) 0.92 K/uL Eosinophils # (Auto) 0.18 K/uL Basophils # (Auto) 0.02 K/uL RDW Standard Deviation 52.8 fL RDW Coefficient of Variation 16.1 % Immature Granulocyte % (Auto) 0.4 % Immature Granulocyte # (Auto) 0.04 K/uL Prothrombin Time 16.9 SECONDS Prothromb Time International Ratio 1.6 Sodium Level 139 mmol/L Potassium Level 4.1 mmol/L Chloride Level 103 mmol/L Carbon Dioxide Level 28 mmol/L Anion Gap 8.0 mmol/L Blood Urea Nitrogen 15 mg/dl Creatinine 0.85 mg/dl Est Creatinine Clear Calc Drug Dose 78.7 ml/min Estimated GFR () 94.0 Estimated GFR (Non- 81.1 BUN/Creatinine Ratio 17.8 Random Glucose 134 mg/dl Calcium Level 8.4 mg/dl Magnesium Level 2.2 mg/dl Total Bilirubin 0.3 mg/dl Direct Bilirubin 0.1 mg/dl Aspartate Amino Transf (AST/SGOT) 31 U/L Alanine Aminotransferase (ALT/SGPT) 90 U/L Alkaline Phosphatase 89 U/L Total Protein 7.5 gm/dl Albumin 2.1 gm/dl Assessment and Plan 81-year-old white male admitted on 02/01/2017 because of Metabolic encephalopathy likely 2/2 UTI + HAP/Aspiration pneumonia (meets sirs criteria) , endocarditis recent echocardiogram shows pulmonic vegetation. Metabolic encephalopathy resolved. Acute endocarditis, POA, continue stable UTI + HAP/Aspiration pneumonia (meets sirs criteria), endocarditis recent echocardiogram shows pulmonic vegetation; stable Cardiology on case secondary for pulmonic vegetation. Blood cultures + streptococcus and Enterococcus bacteremia Repeat blood cultures obtained, So far preliminary report does not show any bacteria. PICC was tried for 2 timesnot in right position, have to change to mid line, it will be only good for 4 weeks, the total antibiotic need 8 weeks , therefore need to have mid line changed in the middle of full course abx treatment ID has defined amp and rocephin, for 8 weeks from 02/07/2017, pt need to follow with ID. Puree diet with [place] Thick Liquids per recommend from speech, continue speech therapy, stable Aspiration precautions: No straws, fully alert and upright for all oral intake, remain upright for 15-20 minutes after meals, keep head of bed elevated at least 30-degrees at all times, utilize stringent oral hygiene protocol, encourage double swallow and throat-clearing/re-swallowing. Oral Hygiene Protocol: Clean all surfaces of mouth with soft toothbrush and toothpaste PRIOR TO oral intake in the morning, after meals, and before bed in evening. Pt would benefit from f/u with RAIL LAYER services at SNF to implement diet and aspiration precautions in patient's residential setting. Congestive heart failure and elevated LFT, stable No dyspnea however Lower Extremity edema His echocardiogram suggested plethora of the IVC and he does have a somewhat elevated liver enzymes, all suggesting an element of passive congestion likely related to pulmonary regurgitation and mild right heart failure. Cardiology following the case, and recommended Lasix 80mg BID. Hypokalemia Ambulatory dysfunction Afib, rate controlled Currently in A. fib on monitor Continue Coumadin, Lopressor INR < 2 today continue current dose of Coumadin, f/u inr Accelerated hypertension, will increase amlodipine, continue beta alie and ERIKA inhibitor Anemia Chronic pain Dementia RLS: Depression/Anxiety BPH The above condition is stable continue current medication DVT proph Coumadin Code: planning to [facility] tomorrow and pending for the setting up Discussed with 2 daughters and answered all questions Continued [facility] stay due to: home environment unsafe for pt Discharge planning: [facility]
[2017-02-08] MEDS: CEFTRIAXONE SOD INJ 1 GM in DEXTROSE 5% ADD-VANTAGE 50ML 50 ML IV SCH (14:14)
[2017-02-08 15:14] VITALS: BP 154/76; PULSE 63; TEMP 36.6; O2SAT 97
[2017-02-08] MEDS: WARFARIN SOD 3 MG TAB PO SCH (15:43)
[2017-02-08] MEDS: FINASTERIDE 5 MG TAB PO SCH (20:51)
[2017-02-08] MEDS: ROPINIROLE HCL 0.25 MG TAB PO SCH (20:52)
[2017-02-08] MEDS: CARVEDILOL 6.25 MG TAB PO SCH (20:53)
[2017-02-08] MEDS: DONEPEZIL HCL 5 MG TAB PO SCH (20:54)
[2017-02-09] VITALS: O2SAT 95
[2017-02-09 00:22] VITALS: BP 151/76; PULSE 64; TEMP 36.9; O2SAT 95
[2017-02-09] MEDS: SODIUM CHLOR 0.9% IV SCH ×2 (03:48→10:37)
[2017-02-09] MEDS: AD VAN IV SCH ×2 (03:48→10:37)
[2017-02-09] MEDS: AMPICILLIN IV SCH ×2 (03:48→10:37)
[2017-02-09 06:57] LABS: BASO % 0.2 %; BASO ABS # 0.02 K/uL (0-0.2); COMPLETE YES; EOS % 1.4 %; HEMATOCRIT 32.6 % (42-52); IG% 0.3 %; LYMPH % 13.6 %; MEAN CELL VOLUME 89.1 fL (80-100); MEAN CORPUSCULAR HEMOGLOBIN 27.9 pg (25-34); MEAN CORPUSCULAR HGB CONC 31.3 g/dl (32-36); MEAN PLATELET VOLUME 9.4 fL (7.4-10.4); MONO % 10.4 %; NEUT % 74.1 %; PLATELET COUNT 259 K/uL (130-400); RED BLOOD COUNT 3.66 M/uL (4.7-6.1); WHITE BLOOD COUNT 10.32 K/uL (4.8-10.8)
[2017-02-09 07:06] LABS: INR 1.8 (0.9-1.1); PROTHROMBIN TIME (PATIENT) 19.3 SECONDS (9.0-12.0)
[2017-02-09] MEDS: LISINOPRIL 40 MG TAB PO SCH (07:44)
[2017-02-09] MEDS: FERROUS GLUCONATE 324 MG TAB PO SCH (07:44)
[2017-02-09] MEDS: CARVEDILOL 6.25 MG TAB PO SCH (07:44)
[2017-02-09] MEDS: RISPERIDONE 0.5 MG TAB PO SCH (07:45)
[2017-02-09] MEDS: POTASSIUM CHLORIDE 10 MEQ TABCR PO SCH (07:46)
[2017-02-09] MEDS: FUROSEMIDE 80 MG TAB PO SCH (07:46)
[2017-02-09] MEDS: SERTRALINE HCL 100 MG TAB PO SCH (07:46)
[2017-02-09] MEDS: SIMVASTATIN 20 MG TAB PO SCH (07:46)
[2017-02-09 07:47] VITALS: BP 180/98; PULSE 65; TEMP 36.7; O2SAT 94
[2017-02-09] MEDS: ASPIRIN 81 MG CHEW PO SCH (07:50)
[2017-02-09] MEDS ORDERED: AMLODIPINE BESYLATE 5 MG TAB PO SCH (08:00)
[2017-02-09 09:56] VITALS: BP 144/87; PULSE 68
[2017-02-09] MEDS ORDERED: [UNRECOGNIZED DRUG - CODE] IV (10:32)
[2017-02-09] MEDS ORDERED: NRV5 PO (10:32)
[2017-02-09] MEDS ORDERED: CRG625 PO (10:32)
[2017-02-09] MEDS ORDERED: CEFT1INJ6 IV (10:32)
[2017-02-09] MEDS ORDERED: ZRX25 PO (10:32)
--- NOTE | 2017-02-09 10:32 | Discharge Instructions ---
Discharge Instructions Date of Service Feb 09, 2017. Admission Reason for Admission: Pneumonia Uti(Urinary Tract Infection) Discharge Discharge Diagnosis / Problem: Acute endocarditis, POA, continue stable Discharge Goals Goal(s): Decrease discomfort, Improve function, Increase independence, Improve disease control, Improve nutritional status, Learn about illness, Diagnostic testing, Therapeutic intervention, Prevent Disease Progression, Specific goals Activity Recommendations Activity Level: Bedrest Therapies: Physical Therapy, Occupational Therapy . Additional Information Patient informed of condition: Yes Advance Directives: Yes DNR: Yes Level of Care: Skilled Communicable Disease: No Prognosis: Other (guarded) Carr Catheter: Yes Instructions / Follow-Up Instructions / Follow-Up you ahve Acute endocarditis, you have mid line, it will be only good for 4 weeks, the total antibiotic need 8 weeks, (today is 3.days of 8 weeks) , therefore need to have mid line changed in the middle of full course abx treatment you need to follow with ID, Dr. Parks you need ot contine [place] Thick Liquids per recommend from speech, continue speech therapy Aspiration precautions: No straws, fully alert and upright for all oral intake, remain upright for 15-20 minutes after meals, keep head of bed elevated at least 30-degrees at all times, utilize stringent oral hygiene protocol, encourage double swallow and throat-clearing/re-swallowing. Oral Hygiene Protocol: Clean all surfaces of mouth with soft toothbrush and toothpaste PRIOR TO oral intake in the morning, after meals, and before bed in evening. need to follow with BATCH ANALYST services at SNF to implement diet and aspiration precautions in patient's residential setting. you have afib on coumadin Continue Coumadin, Lopressor today 's inr is 1.8, continue current dose of Coumadin, f/u inr in 2-3 days Accelerated hypertension, has increase amlodipine, continue beta alie and ERIKA inhibitor, blood pressure medicine need to be adjusted by pcp - you need to follow up with your primary care physician in 1 week, - take medication as instructed, never overdose or any misuse, or take with alcohol, because misuse of medicine may cause organ damage or , call your primary care physician if have questions of medicaitons. - call your primary care physician OR go to local emergency room if has any fever/chill, chest pain, shortness of breathing, nausea/vomiting/abdominal pain , facial droop/slurry speech/local weakness, or if has any questions. - fall precaution - diet as instructed - you need to follow up with your subspecialists Current Hospital Diet Patient's current hospital diet: AHA Diet (Heart Healthy) Discharge Diet Recommended Diet: Low Sodium Diet (2gm Na) Pending Studies Studies pending at discharge: no Physician Orders On Transfer POLST Discussion: without POLST completion Medical Emergencies . Who to Call and When: Medical Emergencies: If at any time you feel your situation is an emergency, please call 911 immediately. . Non-Emergent Contact Non-Emergency issues call your: Primary Care Provider, Specialist (ID) . . "Provider Documentation" section prepared by Hamlet Rendon. Core Measure Problem Core Measures: None
[2017-02-09] MEDS: CHOLESTYRAMINE LIGHT 4 GM PKT PO SCH (10:37)
--- NOTE | 2017-02-09 10:47 | Discharge Summary ---
Discharge Summary Date of Service Feb 09, 2017. Discharge Summary Admission Date: Feb 01, 2017 at 20:25 Discharge Date: Feb 09, 2017 Discharge Disposition: long term facility Principal Diagnosis: Acute endocarditis, Problems/Secondary Diagnoses: afib on coumadin Accelerated hypertension, Immunizations: Have You Had Influenza Vaccine: Yes Influenza Vaccine Date: Aug 07, 2012 History of Tetanus Vaccine?: Unknown History of Pneumococcal: No History of Hepatitis B Vaccine: Unknown Procedures: mid line Consultations: Cardiology and infectious disease Medication Reconciliation New Medications: Ampicillin Sod (Ampicillin Sodium) 2,000 Mg Inj 2 GM IV Q6 for 54 Days Ceftriaxone Sodium (Rocephin) 1 Gm Inj 1 GM IV DAILY for 54 Days, VIAL Amlodipine Besylate (Amlodipine Besylate) 5 Mg Tab 10 MG PO QAM for 30 Days, TAB Carvedilol (Carvedilol) 6.25 Mg Tab 6.25 MG PO BID for 30 Days, TAB Metolazone (Metolazone) 2.5 Mg Tab 2.5 MG PO MoWeFr@0900 for 30 Days, TAB Continued Medications: Acetaminophen (Tylenol) 500 Mg Tab 1000 MG PO TID, TAB Aspirin Enteric Coated (Ecotrin Or Generic) 81 Mg Tab 81 MG PO QAM, TAB Donepezil HCl (Aricept) 5 Mg Tab 10 MG PO QPM Ferrous Gluconate (Ferrous Gluconate) 324 Mg Tab 324 MG PO DAILY @ 1000 not with other meds and on an empty stomach Finasteride (Proscar) 5 Mg Tab 5 MG PO QPM, TAB Furosemide (Lasix) 40 Mg Tab 40 MG PO DAILY AT 1400, TAB Lisinopril (Lisinopril) 40 Mg Tab 40 MG PO QAM Lorazepam (Ativan) 1 Mg Tab 1 MG PO DAILY AT 1600, TAB Memantine Hcl (Namenda Xr) 28 Mg Cap 28 MG PO QPM Multivitamin (Multivitamin) Tab 1 TAB PO QAM, 0 Refills Nitroglycerin (Nitrostat) 0.4 Mg Tab 0.4 MG UT PRN PRN for Chest Pain, BTL TAKE EVERY 5 MIN X 3 DOSES. Oxycodone Hcl (Oxycodone Hcl) 5 Mg Cap 5 MG PO Q8 for 30 Days, #90 CAP Potassium Chloride Microencaps (Potassium Chloride Cr) 20 Meq Tab 20 MEQ PO TID Risperidone (Risperdal) 0.25 Mg Tab 0.25 MG PO BID, TAB Ropinirole (Requip) 0.25 Mg Tab 2 TABS PO TID [id number], TAB Sertraline Hcl (Zoloft) 100 Mg Tab 100 MG PO QAM, TAB Simvastatin (Zocor) 20 Mg Tab 20 MG PO DAILY AT 1600, 0 Refills Warfarin Sodium (Coumadin) 2 Mg Tab 2 MG PO QPM AT 2100, TAB TAKES 2 DAYS THEN 3 MG ON 3RD DAY. Warfarin Sodium (Coumadin) 3 Mg Tab 3 MG PO QPM AT 2100, TAB TAKES EVERY 3RD DAY, 2 MG FOR 2 DAYS. Discontinued Medications: Amlodipine (Norvasc) 5 Mg Tab 5 MG PO QAM, TAB Furosemide (Lasix) 80 Mg Tab 80 MG PO QAM, TAB Metoprolol Tartrate (Lopressor) (Lopressor) 25 Mg Tab 12.5 MG PO BID, TAB Discharge Exam Doing well, looks good, no constipation, no chest pain no spiking fever Review of Systems: Constitutional: No chills, No fatigue, No fever, No problem reported, No sweats, No weakness, No weight loss Eyes: No diplopia, No discharge, No eye pain, No problem reported, No redness, No worsening of vision ENT: No dental problems, No hearing loss, No nasal symptoms, No problem reported, No sore throat, No tinnitus, No trouble swallowing, No unusual epistaxis Respiratory: No cough, No dyspnea at rest, No dyspnea on exertion, No hemoptysis, No problem reported, No shortness of breath, No sputum, No wheezing Cardiovascular: No PND, No chest pain, No claudication, No edema, No orthopnea, No palpitations, No problem reported Abdomen: No GI bleeding, No constipation, No diarrhea, No nausea, No pain, No problem reported, No vomiting Musculoskeletal: No calf pain, No joint pain, No muscle pain, No problem reported, No swelling Genitourinary - Male: No dysuria, No hematuria, No impotence, No lesions, No penile discharge, No problem reported, No urinary frequency, No urinary hesitancy, No urinary incontinence, No urinary retention, No urinary urgency Neurologic: No balance problems, No memory loss, No numbness/tingling, No paralysis, No problem reported, No vertigo, No weakness Psychiatric: No anhedonism, No anxiety, No depression symptoms, No insomnia , No problem reported, No substance abuse Endocrine: No excessive thirst, No excessive urination, No fatigue, No problem reported Hematologic / Lymphatic: No abnormal bleeding/bruising, No clotting problems , No night sweats, No problem reported, No swollen lymph nodes Integumentary: No bleeding, No color change, No itch, No new/changing skin lesions, No problem reported, No rash Physical Exam: Eyes: normal inspection, PERRL, EOMI ENT: normal ENT inspection, hearing grossly normal, TMs normal Neck: supple, no adenopathy Respiratory/Chest: chest non-tender, no respiratory distress, no accessory muscle use, + decreased breath sounds Cardiovascular: regular rate, rhythm, no edema, no gallop, no JVD, no murmur , normal peripheral pulses Abdomen / GI: normal bowel sounds, non tender, soft, no organomegaly, no pulsatile mass Extremities: normal inspection, no pedal edema Neurologic/Psychiatric: chip frier II-XII nml as tested, no motor/sensory deficits , alert, normal mood/affect Skin: normal color, warm/dry Hospital Course 81-year-old white male admitted on 02/01/2017 because of Metabolic encephalopathy likely 2/2 UTI + HAP/Aspiration pneumonia (meets sirs criteria) , endocarditis recent echocardiogram shows pulmonic vegetation. Metabolic encephalopathy resolved. Acute endocarditis, POA, continue stable UTI + HAP/Aspiration pneumonia (meets sirs criteria), endocarditis recent echocardiogram shows pulmonic vegetation; stable Cardiology on case secondary for pulmonic vegetation. Blood cultures + streptococcus and Enterococcus bacteremia Repeat blood cultures obtained, So far preliminary report does not show any bacteria. PICC was tried for 2 timesnot in right position, have to change to mid line, it will be only good for 4 weeks, the total antibiotic need 8 weeks , therefore need to have mid line changed in the middle of full course abx treatment ID has defined amp and rocephin, for 8 weeks from 02/07/2017, pt need to follow with ID. Puree diet with [place] Thick Liquids per recommend from speech, continue speech therapy, stable Aspiration precautions: No straws, fully alert and upright for all oral intake, remain upright for 15-20 minutes after meals, keep head of bed elevated at least 30-degrees at all times, utilize stringent oral hygiene protocol, encourage double swallow and throat-clearing/re-swallowing. Oral Hygiene Protocol: Clean all surfaces of mouth with soft toothbrush and toothpaste PRIOR TO oral intake in the morning, after meals, and before bed in evening. Pt would benefit from f/u with SURVEY RESEARCH MANAGER services at [facility] to implement diet and aspiration precautions in patient's residential setting. Congestive heart failure and elevated LFT, stable No dyspnea however Lower Extremity edema His echocardiogram suggested plethora of the IVC and he does have a somewhat elevated liver enzymes, suggesting an element of passive congestion likely related to pulmonary regurgitation and mild right heart failure. Cardiology following the case, has been on Lasix 80 mg by mouth twice a day, and recommended Lasix 40 mg by mouth twice a day upon discharge Hypokalemia Ambulatory dysfunction Afib, rate controlled Currently in A. fib on monitor Continue Coumadin, Lopressor INR < 2 today continue current dose of Coumadin, f/u inr Accelerated hypertension has increase amlodipine to 10 mg by mouth daily, continue beta alie and ERIKA inhibitor Anemia Chronic pain Dementia RLS: Depression/Anxiety BPH The above condition is stable continue current medication DVT proph Coumadin Code: planning to [facility] tomorrow and pending for the setting up Discussed with 2 daughters and answered all questions Instructions / Follow-Up you ahve Acute endocarditis, you have mid line, it will be only good for 4 weeks, the total antibiotic need 8 weeks, (today is 3.days of 8 weeks) , therefore need to have mid line changed in the middle of full course abx treatment you need to follow with ID, Dr. Parks you need ot contine [place] Thick Liquids per recommend from speech, continue speech therapy Aspiration precautions: No straws, fully alert and upright for all oral intake, remain upright for 15-20 minutes after meals, keep head of bed elevated at least 30-degrees at all times, utilize stringent oral hygiene protocol, encourage double swallow and throat-clearing/re-swallowing. Oral Hygiene Protocol: Clean all surfaces of mouth with soft toothbrush and toothpaste PRIOR TO oral intake in the morning, after meals, and before bed in evening. need to follow with SURVEY RESEARCH MANAGER services at [facility] to implement diet and aspiration precautions in patient's residential setting. you have afib on coumadin Continue Coumadin, Lopressor today 's inr is 1.8, continue current dose of Coumadin, f/u inr in 2-3 days Accelerated hypertension, has increase amlodipine, continue beta alie and ERIKA inhibitor, blood pressure medicine need to be adjusted by pcp - you need to follow up with your primary care physician in 1 week, - take medication as instructed, never overdose or any misuse, or take with alcohol, because misuse of medicine may cause organ damage or , call your primary care physician if have questions of medicaitons. - call your primary care physician OR go to local emergency room if has any fever/chill, chest pain, shortness of breathing, nausea/vomiting/abdominal pain , facial droop/slurry speech/local weakness, or if has any questions. - fall precaution - diet as instructed - you need to follow up with your subspecialists Total Time Spent: Greater than 30 minutes This includes examination of the patient, discharge planning, medication reconciliation, and communication with other providers. Discharge Instructions Please refer to the electronic Patient Visit Report (Discharge Instructions) for additional information. Additional Copies To Kosta Parks MD; Kenneth Jamison MD
[2017-02-09 10:52] VITALS: BP 144/87; PULSE 68; TEMP 36.7; O2SAT 94
[2017-02-09] MEDS ORDERED: WARFARIN SOD 2 MG TAB PO SCH (16:00)
[2017-04-11] MEDS ORDERED: METO2.5T PO (13:40)
[2017-04-11] MEDS ORDERED: APIX1TAB3 PO (13:40)
[2017-04-11] MEDS ORDERED: SACC250C PO (13:42)
[2017-04-11] MEDS ORDERED: CEFT1INJ57 IV (13:46)
== END 2017-02-09 13:39 | DRG 288 ==
LOC: ENRESERVDT → ENRESERVTM → EDBD 17:40 → C.EDC 17:41 → C.2E 20:25 → C.4E 02-07 13:25
PROVIDERS: ADMIT Hospitalist; ATTEND Hospitalist
PROC: 02HV33Z Insertion of Infusion Device into Superior Vena Cava, Percutaneous Approach (ICD-10-PCS; principal; 2017-02-07)
DX: I33.0 Acute and subacute infective endocarditis (principal); G93.41 Metabolic encephalopathy; J69.0 Pneumonitis due to inhalation of food and vomit; R78.81 Bacteremia; T83.511A Infection and inflammatory reaction due to indwelling urethral catheter, initial encounter; N39.0 Urinary tract infection, site not specified; I50.32 Chronic diastolic (congestive) heart failure; I13.0 Hypertensive heart and chronic kidney disease with heart failure and stage 1 through stage 4 chronic kidney disease, or unspecified chronic kidney disease; B95.5 Unspecified streptococcus as the cause of diseases classified elsewhere; B95.2 Enterococcus as the cause of diseases classified elsewhere; E87.6 Hypokalemia; R94.5 Abnormal results of liver function studies; R26.9 Unspecified abnormalities of gait and mobility; N40.1 Benign prostatic hyperplasia with lower urinary tract symptoms; I48.2 Chronic atrial fibrillation; G30.9 Alzheimer's disease, unspecified; F02.80 Dementia in other diseases classified elsewhere, unspecified severity, without behavioral disturbance, psychotic disturbance, mood disturbance, and anxiety; C61 Malignant neoplasm of prostate; F01.50 Vascular dementia, unspecified severity, without behavioral disturbance, psychotic disturbance, mood disturbance, and anxiety; N18.3 Chronic kidney disease, stage 3 (moderate); G89.29 Other chronic pain; I25.10 Atherosclerotic heart disease of native coronary artery without angina pectoris; D63.1 Anemia in chronic kidney disease; G20 Parkinson's disease; G25.81 Restless legs syndrome; E78.5 Hyperlipidemia, unspecified; F41.9 Anxiety disorder, unspecified; F32.9 Major depressive disorder, single episode, unspecified; E66.9 Obesity, unspecified; Z51.81 Encounter for therapeutic drug level monitoring; Z79.899 Other long term (current) drug therapy; Z79.01 Long term (current) use of anticoagulants; Z79.82 Long term (current) use of aspirin; Z79.891 Long term (current) use of opiate analgesic; Z66 Do not resuscitate; Z87.440 Personal history of urinary (tract) infections; Z87.01 Personal history of pneumonia (recurrent); Z95.1 Presence of aortocoronary bypass graft; Z95.5 Presence of coronary angioplasty implant and graft; Z68.35 Body mass index [BMI] 35.0-35.9, adult

== ENCOUNTER 2017-03-19 16:54 | Inpatient (IN) | payer OTHER, BC ==
[~2017-03-19] VITALS: Ht 172.7 cm; Wt 106.1 kg
[~2017-03-19 16:54] MED LIST changes: -ASPEC81 PO; +ASPI81TA21 PO; +CEFT1INJ6 IV; -CETI10TA10 PO; -CMD5 PO; -CPR500 PO; +CRG625 PO; -FLM4 PO; -GLCSC750600 PO; -LISI-725 PO; -LPR25 PO; +LSN40 PO; +NTRGSL/4 UT; +OXYC1CAP5 PO; -POTA10CA28 PO; +POTA20TA11 PO; +SERT1TAB68 PO; -SERT50TA PO; +WARF2TAB PO; +WARF3TAB PO; +ZRX25 PO; +[UNRECOGNIZED DRUG - CODE] IV
[2017-03-19] MEDS ORDERED: SODIUM CHLORIDE 0.9% 500ML 500 ML IV STA (18:14)
[2017-03-19] MEDS ORDERED: LORAZEPAM 2 MG/ML 1 ML VIAL ONE (18:20)
[2017-03-19] MEDS ORDERED: LEVETIRACETAM IV 1,000 MG in DEXTROSE 5% 100ML 100 ML IV STA (18:21)
[2017-03-19 18:28] LABS: BASO % 0.1 %; BASO ABS # 0.01 K/uL (0-0.2); COMPLETE YES; EOS % 0.6 %; HEMATOCRIT 34.3 % (42-52); IG% 0.2 %; LYMPH % 10.3 %; LYMPH ABS # 1.03 K/uL (1.2-3.4); MEAN CELL VOLUME 91.5 fL (80-100); MEAN CORPUSCULAR HEMOGLOBIN 27.2 pg (25-34); MEAN CORPUSCULAR HGB CONC 29.7 g/dl (32-36); MEAN PLATELET VOLUME 8.6 fL (7.4-10.4); MONO % 8.2 %; NEUT % 80.6 %; PLATELET COUNT 210 K/uL (130-400); RED BLOOD COUNT 3.75 M/uL (4.7-6.1); WHITE BLOOD COUNT 9.98 K/uL (4.8-10.8)
[2017-03-19 18:37] LABS: INR 2.6 (0.9-1.1)
[2017-03-19] MEDS ORDERED: LABETALOL HCL IV 5 MG/ML 20ML IV STA (18:37)
--- NOTE | 2017-03-19 18:38 | DIAGNOSTIC IMAGING REPORT ---
CHEST ONE VIEW PORTABLE HISTORY: CHEST CONGESTION COMPARISON: Chest 02/07/2017. FINDINGS: The heart remains mildly enlarged. There are poststernotomy changes. No pleural effusions. No pneumothorax. No focal lung consolidations to suggest pneumonia. No evidence for pulmonary edema. IMPRESSION: Stable mild cardiomegaly. No evidence for pulmonary edema. Electronically signed by: Earl Frankel M.D. 03/19/2017 6:37 PM Dictated Date/Time: 03/19/2017 6:36 PM
[2017-03-19 18:43] LABS: BUN/CREATININE RATIO 16.1 (10-20); CALCIUM 8.6 mg/dl (8.5-10.1); CREATININE 1.2 mg/dl (0.60-1.40)
[2017-03-19 18:45] LABS: ALB/GLOB RATIO 0.5 (0.9-2)
[2017-03-19] MEDS ORDERED: PIPERACILLIN/TAZOBACTAM 4.5 GM/100ML D5W IV STA (18:45)
--- NOTE | 2017-03-19 18:52 | DIAGNOSTIC IMAGING REPORT ---
HEAD CT NONCONTRAST CT DOSE: 1932.35 mGy.cm HISTORY: seizure TECHNIQUE: Multiaxial CT images of the head were performed without the use of intravenous contrast. Automated exposure control was utilized for this study. Comparison: Head CT 02/01/2017. Findings: The paranasal sinuses and mastoid air cells are clear. The calvarium and skull base are intact. There is no mass, hematoma, midline shift, acute infarct. White matter hypodensity is nonspecific but suggestive of microvascular ischemic change. The ventricles and sulci demonstrate mild age-related involutional changes. Mild motion artifact. Impression: No acute intracranial abnormality. Atrophy and microvascular ischemic changes. Electronically signed by: Earl Frankel M.D. 03/19/2017 6:51 PM Dictated Date/Time: 03/19/2017 6:47 PM
[2017-03-19 19:00] LABS: URINE APPEARANCE CLEAR (CLEAR); URINE BILIRUBIN NEG (NEG); URINE COLOR YELLOW; URINE NITRITE NEG (NEG); URINE PH 7.5 (4.5-7.5); URINE SPECIFIC GRAVITY 1.013 (1.000-1.030); UROBILINOGEN NEG (NEG); ZZURINE CULT IF INDIC CATH YES
[2017-03-19 19:01] LABS: MANUAL MICROSCOPIC REQUIRED? NO; REVIEW REQ? NO
[2017-03-19 19:02] LABS: SULFASALICYLIC ACID POS (NEG)
[2017-03-19] MEDS ORDERED: ONDANSETRON INJ 2 MG/ML 2 ML VIAL IV PRN (19:45)
[2017-03-19] MEDS ORDERED: ACETAMINOPHEN 325 MG TAB PO PRN (19:45)
[2017-03-19] MEDS ORDERED: METOPROLOL TARTRATE 1 MG/ML VIAL IV PRN (20:00)
[2017-03-19] MEDS ORDERED: LORAZEPAM 2 MG/ML 1 ML VIAL IV PRN (20:00)
[2017-03-19 20:11] LABS: VEN BLD GAS O2 SATURATION 93.8 %; VEN BLOOD GAS BASE EXCESS 4.6 mmol/L
[2017-03-19 20:45] LABS: MAGNESIUM 1.9 mg/dl (1.8-2.4); PHOSPHORUS 2.5 mg/dl (2.5-4.9)
[2017-03-19] MEDS ORDERED: PIPERACILL/TAZOBAC CONSULT ACTIVE PRN (20:45)
[2017-03-19 21:15] VITALS: BP 158/77; PULSE 70; TEMP 36.9; O2SAT 98; Ht 172.7 cm; Wt 106.1 kg
[2017-03-19] MEDS ORDERED: GADAVIST IV PRN (22:15)
--- NOTE | 2017-03-19 22:19 | EMERGENCY ROOM VISIT NOTE ---
History Report prepared by Khanhibmarcia: Brendon Winchester Under the Supervision of: Dr. Zackary Gama D.O. First contact with patient: 18:00 Chief Complaint: SEIZURE Stated Complaint: SEIZURE Nursing Triage Summary: PT ARRIVED ALS FROM [place], REPORTED TONIC COLONIC SEIZURE 20 SECONDS, PT WAS SLOW TO RESPOND. PT ALSO HAD ONE IN ROUTE TO HOSPITAL. O2 SATS LOW 80'S ON ROOM AIR, PT ON NON REBREATHER O2SAT 91% PT HAS NO HX OF SEIZURES, IS ON ANTIBIOTICS FOR PERICARDITIS PICC LINE IN THE RIGHT ARM History of Present Illness The patient is a 81 year old male who presents to the Emergency Room with complaints of intermittent episodes of seizure-like activity occurring shortly prior to arrival. He has no history of seizures. He is currently being treated for pericarditis from sepsis resulting from a UTI. The patient is unsure why he is in the ED currently. Pt denies headache, change in vision, fevers, chest pain , shortness of breath, nausea, vomiting, diarrhea, pain with urination, and melena. Per family, the patient was witnessed "shaking all over". They state that the patient appeared to fall and was minimally responsive. They state that the patient had another episode of seizure-like activity occur en route. The patient's family states that the patient is currently more confused than usual. They deny any known head trauma. The patient is on Coumadin for A-fib. His last normal bowel movement was today. HPI limited secondary to altered mental status. Source of History: patient, family History Limited By: AMS Onset: Shortly prior to arrival Symptom Intensity: 2 episodes Quality: other (seizure-like activity) Timing: intermittent Associated Symptoms: No SOB, No abdominal pain, No chest pain, No diarrhea, No fevers, No headache, No nausea, No urinary symptoms, No vomiting Review of Systems ROS limited secondary to altered mental status. Past Medical & Surgical Medical Problems: (1) Alzheimers disease (2) Anemia in CKD (chronic kidney disease) (3) Anxiety (4) BPH w urinary obs/LUTS (5) CAD (coronary artery disease) (6) CKD (chronic kidney disease), stage III (7) Heart failure (8) History of endocarditis (9) HTN (hypertension) (10) Hyperlipidemia (11) Malignant neoplasm prostate (12) Mitral regurgitation (13) New onset seizure (14) Osteoarthritis (15) Parkinsonism (16) Pneumonia (17) UTI (urinary tract infection) (18) Vascular dementia (19) Weakness Surgical Problems: (1) Hx of CABG (2) S/P coronary artery stent placement Family History No pertinent family history stated. Social History Smoking Status: Unknown if Ever Smoked Alcohol Use: none Drug Use: none Marital Status: Housing Status: assisted living Occupation Status: retired Current/Historical Medications Scheduled Acetaminophen (Tylenol), 1,000 MG PO TID Amlodipine Besylate (Amlodipine Besylate), 10 MG PO QAM Ampicillin Sod (Ampicillin Sodium), 2 GM IV Q6 Aspirin Enteric Coated (Ecotrin Or Generic), 81 MG PO QAM Carvedilol (Carvedilol), 6.25 MG PO BID Ceftriaxone Sodium (Rocephin), 1 GM IV DAILY Donepezil HCl (Aricept), 10 MG PO QPM Ferrous Gluconate (Ferrous Gluconate), 324 MG PO DAILY @ 1000 Finasteride (Proscar), 5 MG PO QPM Furosemide (Lasix), 40 MG PO DAILY AT 1400 Lisinopril (Lisinopril), 40 MG PO QAM Lorazepam (Ativan), 1 MG PO DAILY AT 1600 Memantine Hcl (Namenda Xr), 28 MG PO QPM Metolazone (Metolazone), 2.5 MG PO MoWeFr@0900 Multivitamin (Multivitamin), 1 TAB PO QAM Oxycodone Hcl (Oxycodone Hcl), 5 MG PO Q8 Potassium Chloride Microencaps (Potassium Chloride Cr), 20 MEQ PO TID Risperidone (Risperdal), 0.25 MG PO BID Ropinirole (Requip), 2 TABS PO TID [id number] Sertraline Hcl (Zoloft), 100 MG PO QAM Simvastatin (Zocor), 20 MG PO DAILY AT 1600 Warfarin Sodium (Coumadin), 2 MG PO QPM AT 2100 Warfarin Sodium (Coumadin), 3 MG PO QPM AT 2100 Scheduled PRN Nitroglycerin (Nitrostat), 0.4 MG UT PRN PRN for Chest Pain Allergies Coded Allergies: No Known Allergies (Verified , 02/01/17) Physical Exam Vital Signs Date Time Temp Pulse Resp B/P Pulse Ox O2 Delivery O2 Flow Rate FiO2 03/19/17 19:29 64 17 128/71 99 Nasal Cannula 4.0 03/19/17 19:24 64 18 100 03/19/17 19:19 62 18 100 03/19/17 19:14 65 19 100 03/19/17 19:09 63 29 100 03/19/17 19:04 68 20 100 03/19/17 19:01 131/70 03/19/17 18:59 60 28 100 03/19/17 18:54 67 34 100 03/19/17 18:49 64 22 99 03/19/17 18:44 68 18 100 03/19/17 18:42 68 18 143/73 100 Non-Rebreather 03/19/17 18:40 143/73 03/19/17 18:39 66 26 100 03/19/17 18:19 61 17 87 03/19/17 18:14 69 25 98 03/19/17 18:09 66 23 96 03/19/17 18:04 69 18 96 03/19/17 17:59 66 21 96 03/19/17 17:54 65 19 98 03/19/17 17:49 66 18 95 03/19/17 17:44 64 21 96 03/19/17 17:39 72 17 94 03/19/17 17:34 68 20 96 03/19/17 17:33 92 Mask 6.0 03/19/17 17:29 66 21 89 03/19/17 17:24 69 20 94 03/19/17 17:19 68 19 94 03/19/17 17:14 65 21 93 03/19/17 17:14 36.7 68 20 152/83 87 Room Air Nasal Cannula 03/19/17 17:10 67 03/19/17 17:09 71 22 91 03/19/17 17:06 152/83 Physical Exam GENERAL: Sitting up in bed, ill appearing, disheveled, on nasal canula. EYE EXAM: normal conjunctiva, PERRL and EOM's intact OROPHARYNX: no exudate, no erythema, lips, buccal mucosa, and mucous membranes are moist. Bite ferguson and minimal bleeding from the left side of the tongue. NECK: supple, no nuchal rigidity, no adenopathy, non-tender LUNGS: Poor air movement and coarse breath sounds at the bases. HEART: no murmurs, S1 normal and S2 normal ABDOMEN: abdomen soft, non-tender, normo-active bowel sounds, no masses, no rebound or guarding. BACK: Back is symmetrical on inspection and there is no deformity, no midline tenderness, no CVA tenderness. SKIN: no rashes and no bruising UPPER EXTREMITIES: PICC in place LOWER EXTREMITIES: No pitting edema. NEURO EXAM: Awake, alert, and oriented to place and year. Cranial nerves II-XII intact. No weakness of the upper extremities. Bilateral lower extremities with minimal ROM. No focal deficit. Medical Decision & Procedures ER Provider Diagnostic Interpretation: Radiology results as stated below per my review and the radiologist's interpretation: HEAD CT NONCONTRAST Findings: The paranasal sinuses and mastoid air cells are clear. The calvarium and skull base are intact. There is no mass, hematoma, midline shift, acute infarct. White matter hypodensity is nonspecific but suggestive of microvascular ischemic change. The ventricles and sulci demonstrate mild age-related involutional changes. Mild motion artifact. Impression: No acute intracranial abnormality. Atrophy and microvascular ischemic changes. Electronically signed by: Earl Frankel M.D. CHEST ONE VIEW PORTABLE FINDINGS: The heart remains mildly enlarged. There are poststernotomy changes. No pleural effusions. No pneumothorax. No focal lung consolidations to suggest pneumonia. No evidence for pulmonary edema. IMPRESSION: Stable mild cardiomegaly. No evidence for pulmonary edema. Electronically signed by: Earl Frankel M.D. Laboratory Results 03/19/17 18:10 Red Blood Count 3.75, Mean Corpuscular Volume 91.5, Mean Corpuscular Hemoglobin 27.2, Mean Corpuscular Hemoglobin Concent 29.7, Mean Platelet Volume 8.6, Neutrophils (%) (Auto) 80.6, Lymphocytes (%) (Auto) 10.3, Monocytes (%) (Auto) 8.2, Eosinophils (%) (Auto) 0.6, Basophils (%) (Auto) 0.1, Neutrophils # (Auto) 8.04, Lymphocytes # (Auto) 1.03, Monocytes # (Auto) 0.82, Eosinophils # (Auto) 0.06, Basophils # (Auto) 0.01 03/19/17 18:10 Test 03/19/17 17:29 03/19/17 18:10 03/19/17 18:45 03/19/17 19:25 Bedside Glucose 127 mg/dl (70-99) White Blood Count 9.98 K/uL (4.8-10.8) Red Blood Count 3.75 M/uL (4.7-6.1) Hemoglobin 10.2 g/dL (14.0-18.0) Hematocrit 34.3 % (42-52) Mean Corpuscular Volume 91.5 fL (80-100) Mean Corpuscular Hemoglobin 27.2 pg (25-34) Mean Corpuscular Hemoglobin Concent 29.7 g/dl (32-36) Platelet Count 210 K/uL (130-400) Mean Platelet Volume 8.6 fL (7.4-10.4) Neutrophils (%) (Auto) 80.6 % Lymphocytes (%) (Auto) 10.3 % Monocytes (%) (Auto) 8.2 % Eosinophils (%) (Auto) 0.6 % Basophils (%) (Auto) 0.1 % Neutrophils # (Auto) 8.04 K/uL (1.4-6.5) Lymphocytes # (Auto) 1.03 K/uL (1.2-3.4) Monocytes # (Auto) 0.82 K/uL (0.11-0.59) Eosinophils # (Auto) 0.06 K/uL (0-0.5) Basophils # (Auto) 0.01 K/uL (0-0.2) RDW Standard Deviation 60.1 fL (36.4-46.3) RDW Coefficient of Variation 17.8 % (11.5-14.5) Immature Granulocyte % (Auto) 0.2 % Immature Granulocyte # (Auto) 0.02 K/uL (0.00-0.02) Prothrombin Time 29.0 SECONDS (9.0-12.0) Prothromb Time International Ratio 2.6 (0.9-1.1) Anion Gap 8.0 mmol/L (3-11) Est Creatinine Clear Calc Drug Dose 62.4 ml/min Estimated GFR () 64.9 Estimated GFR (Non- 56.0 BUN/Creatinine Ratio 16.1 (10-20) Calcium Level 8.6 mg/dl (8.5-10.1) Phosphorus Level 2.5 mg/dl (2.5-4.9) Magnesium Level 1.9 mg/dl (1.8-2.4) Total Bilirubin 0.3 mg/dl (0.2-1) Aspartate Amino Transf (AST/SGOT) 20 U/L (15-37) Alanine Aminotransferase (ALT/SGPT) 18 U/L (12-78) Alkaline Phosphatase 71 U/L (45-117) Troponin I 0.037 ng/ml (0-0.045) Total Protein 8.5 gm/dl (6.4-8.2) Albumin 3.0 gm/dl (3.4-5.0) Globulin 5.5 gm/dl (2.5-4.0) Albumin/Globulin Ratio 0.5 (0.9-2) Urine Color YELLOW Urine Appearance CLEAR (CLEAR) Urine pH 7.5 (4.5-7.5) Urine Specific [place] 1.013 (1.000-1.030) Urine Protein 1+ (NEG) Urine Glucose (UA) NEG (NEG) Urine Ketones NEG (NEG) Urine Occult Blood 1+ (NEG) Urine Nitrite NEG (NEG) Urine Bilirubin NEG (NEG) Urine Urobilinogen NEG (NEG) Urine Leukocyte Esterase SMALL (NEG) Urine WBC (Auto) >30 /hpf (0-5) Urine RBC (Auto) 10-30 /hpf (0-4) Urine Hyaline Casts (Auto) 1-5 /lpf (0-5) Urine Epithelial Cells (Auto) 10-20 /lpf (0-5) Urine Bacteria (Auto) NEG (NEG) Venous Blood pH 7.49 (7.36-7.41) Venous Blood Partial Pressure CO2 38 mmHg (38.0-50.0) Venous Blood Partial Pressure O2 73 mmHg Venous Blood HCO3 28 mmol/L Venous Blood Oxygen Saturation 93.8 % Venous Blood Base Excess 4.6 mmol/L Laboratory results per my review. Medications Administered Medications (Trade) Dose Ordered Sig/María Route Start Time Stop Time Status Last Admin Dose Admin Sodium Chloride 500 ml @ 999 mls/hr Q31M STAT IV 03/19/17 18:14 03/19/17 18:44 DC 03/19/17 18:14 999 MLS/HR Levetiracetam/ Dextrose (Keppra Iv/D5 100ml) 110 ml @ 440 mls/hr ONE STAT IV 03/19/17 18:21 03/19/17 18:35 DC 03/19/17 18:41 440 MLS/HR Piperacillin Sod/ Tazobactam Sod (Zosyn Iv) 4.5 gm NOW STAT IV 03/19/17 18:45 03/19/17 18:47 DC 03/19/17 19:26 4.5 GM ECG Indication: other (seizure) Rate (beats per minute): 69 Rhythm: atrial fibrillation Findings: Q waves (Inferior), RBBB, other (Poor baseline. LAD.) Comparison ECG Date: February 01, 2017 Change: no significant change ED Course ED COURSE: Vital signs were reviewed and showed hypotension The patients medical record was reviewed The above diagnostic studies were performed and reviewed. ED treatments and interventions as stated above. 1805: The patient was evaluated in room C6. A complete history and physical examination was performed. 181: Ordered Sodium Chloride 500 ml @ 999 mls/hr IV. 1818: The patient had one minute of seizure-like activity. He was placed on a rebreather and taken directly to CT. The patient's family states that the patient is DNR. 1821: Ordered Levetiracetam 1000 mg/Dextrose 110 ml @ 440 mL/hr IV. 1837: Ordered Normodyne IV 20 mg IV. 1845: Ordered Zosyn IV 4.5 gm IV. 1921: Upon reevaluation, the patient is resting comfortably. I discussed my findings with the patient's family and they understand and agree with the treatment plan. Based on the patients age, coexisting illnesses, exam and lab findings the decision to treat as an inpatient was made. The patient remained stable while under my care. The patient will be evaluated for further management. Medical Decision Differential diagnosis includes etiologies such as infection, hypoglycemia, electrolyte abnormalities, cardiac sources, intracerebral event, trauma, toxicologic, neurologic, as well as others were entertained. Patient is an 81-year-old male who presents the ER following 2 seizures at his half-way. He does have a history of endocarditis and is currently being treated with IV antibiotics. No history of seizures. No fevers. On exam he is currently neurologically intact. No focal deficit. He is currently on Coumadin consequently CT head was ordered stat. Carted this gentleman had another 1 minute episode of tonic-clonic activity following which he is given IV Keppra. Seizure terminated prior to given Ativan. I do question whether this is secondary to ischemia versus embolic from the endo UA shows white cells along with esterase. Carditis versus new-onset seizures. Hemoglobin of 10. Potassium is slightly low at 3. Remainder BMP is unremarkable. Troponin was detectable but not positive. VBG was fairly unremarkable. Patient/family were updated at bedside. He was admitted to internal medicine for further workup. Consults Time Called: 1914 Consulting Physician: Dr. Yo -CARON Returned Call: 1920 I reviewed the patient's case with Dr. Yo. [facility] [place] will evaluate the patient for further management. Impression Primary Impression: Status epilepticus Additional Impressions: Anemia Hypokalemia Scribe Attestation The scribe's documentation has been prepared under my direction and personally reviewed by me in its entirety. I confirm that the note above accurately reflects all work, treatment, procedures, and medical decision making performed by me. Departure Information Dispostion Being Evaluated By Hospitalist Referrals Earl Lombardo MD (PCP) Patient Instructions [facility] Problem Qualifiers Additional Impressions: Anemia Anemia type: unspecified type Qualified Codes: D64.9 - Anemia, unspecified
--- NOTE | 2017-03-19 22:23 | DIAGNOSTIC IMAGING REPORT ---
Brain MRI WITH AND WITHOUT CONTRAST HISTORY: r/o stroke, new onset seizures TECHNIQUE: Multiplanar multisequence MRI of the brain was performed both before and after the intravenous administration of contrast. COMPARISON STUDY: Head CT 03/19/2017. Brain MRI 10/03/2016. FINDINGS: There is no mass, hematoma, midline shift, or acute infarct. The paranasal sinuses are clear. The mastoid air cells are clear. The ventricles and sulci demonstrate moderate age-related involutional changes. Scattered foci of T2 hyperintensity seen within the periventricular and subcortical white matter are nonspecific but suggestive of moderate microvascular ischemic changes. The major vascular flow voids at the skull base are well-maintained. No abnormal enhancement. IMPRESSION: No acute intracranial abnormality. T2 hyperintensity seen within the periventricular and subcortical white matter is nonspecific but favors moderate microvascular ischemic change. This remains unchanged. Electronically signed by: Earl rFankel M.D. 03/19/2017 10:21 PM Dictated Date/Time: 03/19/2017 10:12 PM
[2017-03-19] MEDS: CEFTRIAXONE SOD INJ 1 GM in DEXTROSE 5% ADD-VANTAGE 50ML 50 ML IV SCH (22:30)
--- NOTE | 2017-03-19 23:11 | History and Physical ---
History & Physical Date & Time of Service: March 19, 2017 at 22:48 Chief Complaint: Hx Of Endocarditis; New Onset Seizure Primary Care Physician: Earl Lombardo MD History of Present Illness Source: patient, family, partner, clinic records, hospital records The patient did respond to questions however he is oriented only to self and has BL dementia. Some inappropriate responses to questions. History was mainly taken by family. This is an 81 yo m that is presenting to us after a seizure like activity. The first was witness by family at the SNF and according to the family it was the entire body and had bitten his tongue during the episode. It was self limiting. no bowel or bladder in continence. He also had another seizure like episode in the ambulance and a third episode in the ED. This was observed to be tonic clonic like in nature and postictal confusion was noted. He did receive Keppra in the ED. According to the family this is a new seizure and he has no history of any seizure or seizure like activity. He does have a recent admission on January for PNA and UTI. He was found to have a vegetation on the pulmonic valve and was treated for endocarditis accordingly. He was found to have positive blood cultures for E. Faecalis. He has ongoing treatment currently in the outpt setting with Dr Parks and the regimen which was confirmed on allscripts is ampicillin 2 G q 6 and Rocephin 1 G daily which he is receiving via PICC. The assumed source is from the UTI. He has a significant cardiac history and is s/p CABG 2004. He is also being treated for dementia with multiple agents. He does have a history of prostate cancer however accordingly to the family the decision was made to defer treatment because it was "not a fast growing prostate cancer". Currently being treated with Coumadin for A fibb. Past Medical/Surgical History Medical Problems: (1) Alzheimers disease Status: Chronic (2) Anemia in CKD (chronic kidney disease) Status: Chronic (3) Anxiety Status: Chronic (4) BPH w urinary obs/LUTS Status: Chronic (5) CAD (coronary artery disease) Status: Chronic (6) CKD (chronic kidney disease), stage III Status: Chronic (7) Heart failure Permanent Comment: EF 55-60% per echo 03/2014, grade 1 diastolic dysfunction Status: Chronic (8) HTN (hypertension) Status: Chronic (9) Hyperlipidemia Status: Chronic (10) Malignant neoplasm prostate Status: Chronic (11) Mitral regurgitation Permanent Comment: mild-mod per echo 03/2014 Status: Chronic (12) Osteoarthritis Status: Chronic (13) Parkinsonism Status: Chronic (14) Vascular dementia Status: Chronic Surgical Problems: (1) Hx of CABG Status: Chronic (2) S/P coronary artery stent placement Permanent Comment: stent to RCA Status: Chronic Family History No significant family history Social History Smoking Status: Unknown if Ever Smoked Smokeless Tobacco Use: No Alcohol Use: none Drug Use: none Marital Status: Housing status: lives with significant other, snf Occupational Status: retired Immunizations History of Influenza Vaccine: Yes Influenza Vaccine Date: Aug 07, 2012 History of Tetanus Vaccine?: Unknown History of Pneumococcal: No History of Hepatitis B Vaccine: Unknown Multi-Drug Resistant Organisms History of MDRO: No Allergies Coded Allergies: No Known Allergies (Verified , 02/01/17) Home Medications Scheduled Acetaminophen (Tylenol), 1,000 MG PO TID Amlodipine Besylate (Amlodipine Besylate), 10 MG PO QAM Ampicillin Sod (Ampicillin Sodium), 2 GM IV Q6 Aspirin Enteric Coated (Ecotrin Or Generic), 81 MG PO QAM Carvedilol (Carvedilol), 6.25 MG PO BID Ceftriaxone Sodium (Rocephin), 1 GM IV DAILY Donepezil HCl (Aricept), 10 MG PO QPM Ferrous Gluconate (Ferrous Gluconate), 324 MG PO DAILY @ 1000 Finasteride (Proscar), 5 MG PO QPM Furosemide (Lasix), 40 MG PO DAILY AT 1400 Lisinopril (Lisinopril), 40 MG PO QAM Lorazepam (Ativan), 1 MG PO DAILY AT 1600 Memantine Hcl (Namenda Xr), 28 MG PO QPM Metolazone (Metolazone), 2.5 MG PO MoWeFr@0900 Multivitamin (Multivitamin), 1 TAB PO QAM Oxycodone Hcl (Oxycodone Hcl), 5 MG PO Q8 Potassium Chloride Microencaps (Potassium Chloride Cr), 20 MEQ PO TID Risperidone (Risperdal), 0.25 MG PO BID Ropinirole (Requip), 2 TABS PO TID [id number] Sertraline Hcl (Zoloft), 100 MG PO QAM Simvastatin (Zocor), 20 MG PO DAILY AT 1600 Warfarin Sodium (Coumadin), 2 MG PO QPM AT 2100 Warfarin Sodium (Coumadin), 3 MG PO QPM AT 2100 Scheduled PRN Nitroglycerin (Nitrostat), 0.4 MG UT PRN PRN for Chest Pain Review of Systems Unable to complete a meaningful ROS secondary to dementia/ limited responses Physical Exam Vital Signs Date Time Temp Pulse Resp B/P Pulse Ox O2 Delivery O2 Flow Rate FiO2 03/19/17 21:15 36.9 70 18 158/77 98 Nasal Cannula 2.0 03/19/17 20:26 36.7 61 26 126/65 99 03/19/17 20:10 61 26 126/65 99 03/19/17 19:29 64 17 128/71 99 Nasal Cannula 4.0 03/19/17 19:24 64 18 100 03/19/17 19:19 62 18 100 03/19/17 19:14 65 19 100 03/19/17 19:09 63 29 100 03/19/17 19:04 68 20 100 03/19/17 19:01 131/70 03/19/17 18:59 60 28 100 03/19/17 18:54 67 34 100 03/19/17 18:49 64 22 99 03/19/17 18:44 68 18 100 03/19/17 18:42 68 18 143/73 100 Non-Rebreather 03/19/17 18:40 143/73 03/19/17 18:39 66 26 100 03/19/17 18:19 61 17 87 03/19/17 18:14 69 25 98 03/19/17 18:09 66 23 96 03/19/17 18:04 69 18 96 03/19/17 17:59 66 21 96 03/19/17 17:54 65 19 98 03/19/17 17:49 66 18 95 03/19/17 17:44 64 21 96 03/19/17 17:39 72 17 94 03/19/17 17:34 68 20 96 03/19/17 17:33 92 Mask 6.0 03/19/17 17:29 66 21 89 03/19/17 17:24 69 20 94 03/19/17 17:19 68 19 94 03/19/17 17:14 65 21 93 03/19/17 17:14 36.7 68 20 152/83 87 Room Air Nasal Cannula 03/19/17 17:10 67 03/19/17 17:09 71 22 91 03/19/17 17:06 152/83 General Appearance: no apparent distress Head: normocephalic, atraumatic Eyes: normal inspection ENT: + pertinent finding (laceration on the left tongue) Neck: supple Respiratory/Chest: no respiratory distress, no accessory muscle use, + decreased breath sounds (bilat bases) Cardiovascular: regular rate, rhythm, no murmur, + pertinent finding (loud S2) Abdomen/GI: normal bowel sounds, non tender, soft Back: normal inspection Extremities/Musculoskelatal: normal inspection, + pedal edema (+4 bilat - BL for pt) Neurologic/Psych: director of exhibit development II-XII nml as tested, no motor/sensory deficits, alert, + pertinent finding (oriented to self only) Skin: normal color, warm/dry, no rash Lymphatic: no adenopathy Diagnostics Laboratory Results Results Past 24 Hours Test 03/19/17 17:29 03/19/17 18:10 03/19/17 18:45 03/19/17 19:25 Range/Units Bedside Glucose 127 70-99 mg/dl White Blood Count 9.98 4.8-10.8 K/uL Red Blood Count 3.75 4.7-6.1 M/uL Hemoglobin 10.2 14.0-18.0 g/dL Hematocrit 34.3 42-52 % Mean Corpuscular Volume 91.5 80-100 fL Mean Corpuscular Hemoglobin 27.2 25-34 pg Mean Corpuscular Hemoglobin Concent 29.7 32-36 g/dl Platelet Count 210 130-400 K/uL Mean Platelet Volume 8.6 7.4-10.4 fL Neutrophils (%) (Auto) 80.6 % Lymphocytes (%) (Auto) 10.3 % Monocytes (%) (Auto) 8.2 % Eosinophils (%) (Auto) 0.6 % Basophils (%) (Auto) 0.1 % Neutrophils # (Auto) 8.04 1.4-6.5 K/uL Lymphocytes # (Auto) 1.03 1.2-3.4 K/uL Monocytes # (Auto) 0.82 0.11-0.59 K/uL Eosinophils # (Auto) 0.06 0-0.5 K/uL Basophils # (Auto) 0.01 0-0.2 K/uL RDW Standard Deviation 60.1 36.4-46.3 fL RDW Coefficient of Variation 17.8 11.5-14.5 % Immature Granulocyte % (Auto) 0.2 % Immature Granulocyte # (Auto) 0.02 0.00-0.02 K/uL Prothrombin Time 29.0 9.0-12.0 SECONDS Prothromb Time International Ratio 2.6 0.9-1.1 Sodium Level 141 136-145 mmol/L Potassium Level 3.0 3.5-5.1 mmol/L Chloride Level 99 98-107 mmol/L Carbon Dioxide Level 34 21-32 mmol/L Anion Gap 8.0 3-11 mmol/L Blood Urea Nitrogen 19 7-18 mg/dl Creatinine 1.20 0.60-1.40 mg/dl Est Creatinine Clear Calc Drug Dose 62.4 ml/min Estimated GFR () 64.9 Estimated GFR (Non- 56.0 BUN/Creatinine Ratio 16.1 10-20 Random Glucose 132 70-99 mg/dl Calcium Level 8.6 8.5-10.1 mg/dl Phosphorus Level 2.5 2.5-4.9 mg/dl Magnesium Level 1.9 1.8-2.4 mg/dl Total Bilirubin 0.3 0.2-1 mg/dl Aspartate Amino Transf (AST/SGOT) 20 15-37 U/L Alanine Aminotransferase (ALT/SGPT) 18 12-78 U/L Alkaline Phosphatase 71 45-117 U/L Troponin I 0.037 0-0.045 ng/ml Total Protein 8.5 6.4-8.2 gm/dl Albumin 3.0 3.4-5.0 gm/dl Globulin 5.5 2.5-4.0 gm/dl Albumin/Globulin Ratio 0.5 0.9-2 Urine Color YELLOW Urine Appearance CLEAR CLEAR Urine pH 7.5 4.5-7.5 Urine Specific [place] 1.013 1.000-1.030 Urine Protein 1+ NEG Urine Glucose (UA) NEG NEG Urine Ketones NEG NEG Urine Occult Blood 1+ NEG Urine Nitrite NEG NEG Urine Bilirubin NEG NEG Urine Urobilinogen NEG NEG Urine Leukocyte Esterase SMALL NEG Urine WBC (Auto) >30 0-5 /hpf Urine RBC (Auto) 10-30 0-4 /hpf Urine Hyaline Casts (Auto) 1-5 0-5 /lpf Urine Epithelial Cells (Auto) 10-20 0-5 /lpf Urine Bacteria (Auto) NEG NEG Venous Blood pH 7.49 7.36-7.41 Venous Blood Partial Pressure CO2 38 38.0-50.0 mmHg Venous Blood Partial Pressure O2 73 mmHg Venous Blood HCO3 28 mmol/L Venous Blood Oxygen Saturation 93.8 % Venous Blood Base Excess 4.6 mmol/L Microbiology Results 03/19/17 Blood Culture, Received Pending 03/19/17 Blood Culture, Received Pending 03/19/17 Urine Culture, Received Pending Diagnostic Radiology [~ rep ct add3]] CHEST ONE VIEW PORTABLE HISTORY: CHEST CONGESTION COMPARISON: Chest 02/07/2017. FINDINGS: The heart remains mildly enlarged. There are poststernotomy changes. No pleural effusions. No pneumothorax. No focal lung consolidations to suggest pneumonia. No evidence for pulmonary edema. IMPRESSION: Stable mild cardiomegaly. No evidence for pulmonary edema. HEAD CT NONCONTRAST CT DOSE: 1932.35 mGy.cm HISTORY: seizure TECHNIQUE: Multiaxial CT images of the head were performed without the use of intravenous contrast. Automated exposure control was utilized for this study. Comparison: Head CT 02/01/2017. Findings: The paranasal sinuses and mastoid air cells are clear. The calvarium and skull base are intact. There is no mass, hematoma, midline shift, acute infarct. White matter hypodensity is nonspecific but suggestive of microvascular ischemic change. The ventricles and sulci demonstrate mild age-related involutional changes. Mild motion artifact. Impression: No acute intracranial abnormality. Atrophy and microvascular ischemic changes. Impression Assessment and Plan This is an 81 yo m with a recent endocarditis, s/p CABG and new onset seizure concerning for septic embolus vs polypharmacy vs mass New onset Seizure possibly secondary to septic embolus vs polypharmacy vs mass - tele admission - Ativan 1 mg prn for seizures - keppra 500 mg bid, loading dose received in the ED - EEG - MRI brain - Based on micromedex the patient's Ampicillin, oxycodone and Sertraline could potentially lower the seizure threshold so will hold medications - Will remain NPO until swallow study - will check a Mg and Phos Recent Endocarditis - Will change ampicillin to zosyn and continue rocephin - ID consult Hypokalemia - Currently on NSS with 20 K while NPO - recheck in am and assess need for IVF - metalozone held but lasix cont'd Chronic systolic CHF - continue ASA, Carvedilol, lisinopril - lasix has been made IV until cleared for PO - follow I&O Echo: 02/14/17 * There is moderate concentric left ventricular hypertrophy. * Left ventricular systolic function is moderately reduced. * There are regional wall motion abnormalities as specified. * The right ventricle is moderately dilated. * The right ventricular systolic function is moderately reduced. * The left atrium is severely dilated. * The right atrium is moderately dilated. * Moderate to severe pulmonic valvular regurgitation. * There is a large vegetation or mass on the pulmonic valve. * There is mild to moderate mitral regurgitation. * Right ventricular systolic pressure is elevated at 40-50mmHg. * Large left pleural effusion. * Compared to a study from 09/2016, there has been a decrease in LV systolic function, changes in chamber dimension as noted and development of a pulmonic vegetation with associated valve dysfunction * EF 30-35% HTN - continue medications as above as well as amlodipine once PO ok - Lopressor for > 180 systolic Elevated blood glucose - No history of DM but will check and HBA1C in the am BPH - continue finasteride A fibb anticoag with warfarin - Follow INR - Will continue warfarin 5 mg daily Sleep Apnea - CPAP 5-20, C- Flex 3, heated humidification Dementia - continue donepezil, ropinirole and Risperidone once tolerating PO - Ativan normally taken at 1600 daily, will change to IV DVT Prophylaxis - on coumadin DNR karlene -daughter- [phone] [facility]- [phone] Please call daughters with any events Level of Care Telemetry Advanced Directives Existing Living Will: No Existing Power of Fan Mail Editor: No Resuscitation Status DO NOT RESUSCITATE VTE Prophylaxis VTE Risk Assessment Done? Y/N: Yes Risk Level: Moderate Given or contraindicated: Warfarin (Coumadin) Social Service Consult Lives in Jail Note Total Time: Critical Care 30 - 74 minutes Additional Copies To Earl Lombardo MD Assessment and Plan Attending Addendum: I have physically seen and examined this patient, have directed their medical care, have supervised the medical residents activities, and agree with the H&P as noted above, with the following changes: NONE
[2017-03-19 23:24] VITALS: BP 136/71; PULSE 68; TEMP 36.9; O2SAT 99
[2017-03-19] MEDS: POTASSIUM CHLORIDE INJ 20 MEQ in SODIUM CHLORIDE 0.9% 1000ML 1,000 ML IV SCH (23:36)
[2017-03-20] VITALS (8 sets, daily range): BP systolic 125–146; BP diastolic 63–76; PULSE 62–77; TEMP 36.5–37.6; O2SAT 94–99
[2017-03-20] MEDS: PIPERACILL/TAZOBAC IV 3.375 GM in DEXTROSE 5% 100ML 100 ML IV SCH ×3 (02:10→17:54)
[2017-03-20] MEDS: LEVETIRACETAM IV 500 MG in DEXTROSE 5% 100ML 100 ML IV SCH ×2 (05:46→17:51)
[2017-03-20 07:20] LABS: BASO % 0.1 %; BASO ABS # 0.01 K/uL (0-0.2); COMPLETE YES; EOS % 0.1 %; HEMATOCRIT 30.9 % (42-52); IG% 0.2 %; LYMPH ABS # 0.99 K/uL (1.2-3.4); MEAN CELL VOLUME 91.7 fL (80-100); MEAN CORPUSCULAR HEMOGLOBIN 27.3 pg (25-34); MEAN CORPUSCULAR HGB CONC 29.8 g/dl (32-36); MEAN PLATELET VOLUME 8.7 fL (7.4-10.4); MONO % 7.1 %; NEUT % 83.5 %; PLATELET COUNT 159 K/uL (130-400); RED BLOOD COUNT 3.37 M/uL (4.7-6.1); WHITE BLOOD COUNT 10.95 K/uL (4.8-10.8)
[2017-03-20 07:37] LABS: INR 2.7 (0.9-1.1); PROTHROMBIN TIME (PATIENT) 30.1 SECONDS (9.0-12.0)
[2017-03-20 07:54] LABS: BUN/CREATININE RATIO 15.4 (10-20); CALCIUM 8.1 mg/dl (8.5-10.1); CREATININE 0.96 mg/dl (0.60-1.40); POTASSIUM 2.6 mmol/L (3.5-5.1)
[2017-03-20] MEDS: FUROSEMIDE INJ 40 MG in SYRINGE 0 ML IV SCH (08:53)
[2017-03-20] MEDS: LORAZEPAM 2 MG/ML 1 ML VIAL IV SCH (09:00)
[2017-03-20] MEDS: POTASSIUM CHLR 10 MEQ / WTR 10 MEQ in PREMIXED WATER 100 ML IV SCH ×4 (09:06→12:27)
[2017-03-20 09:30] LABS: ESTIMATED AVERAGE GLUCOSE 114 mg/dl; HA1C FLAG Normal (Normal)
--- NOTE | 2017-03-20 10:22 | Progress Note ---
Progress Note Date of Service March 20, 2017. Progress Note ID Consult Dictated #[id number] A/P: 1. Leukocytosis 2. PV IE, E. faecalis, on IV abx -increased wbc likely reactive to seizure activity -follow repeat cultures, if negative would change abx to amp/ctx as previous -will continue with oupt follow up -thank you
[2017-03-20] MEDS: POTASSIUM CHLORIDE INJ 20 MEQ in SODIUM CHLORIDE 0.9% 1000ML 1,000 ML IV SCH (12:32)
--- NOTE | 2017-03-20 13:13 | INFECT. DISEASE CONSULTATION ---
DATE OF CONSULTATION: 03/20/2017 REQUESTING PHYSICIAN: Dr. Cruz. HISTORY OF PRESENT ILLNESS: This is an 81-year-old gentleman who was admitted from a local SNF after having a witnessed seizure activity. His family is present during my examination and they were in the Emergency Room with him last night and witnessed a second seizure. He does not have a history of seizure disorder. He did have an MRI of the brain, which was unremarkable. He was most recently seen in the hospital in January. At that time, he was diagnosed with pulmonic valve endocarditis. He had cultures growing Enterococcus faecalis. This was suspected urinary source as he has had prolonged urinary catheter. He was placed on a course of Rocephin and ampicillin, which he is completing via left upper extremity midline. He states he has had no problems with his antibiotic administration. He denies any abdominal pain or diarrhea. He has no chest pain or shortness of breath. He denies any abdominal pain, nausea, vomiting or diarrhea. He is currently n.p.o. and is asking to eat. He denies any fevers or chills. He did have a T-max of 37.6 upon arrival to the hospital. His leukocytosis is mildly elevated at 10.8. His urinalysis did have greater than 30 WBCs; however, there was no bacteria identified. He does have a chronic catheter in place. Blood cultures and urine cultures are pending. On my examination, the patient is awake and states he is feeling much better. He has no complaints on examination. All remaining review of systems are reviewed and are negative. PAST MEDICAL HISTORY: Significant for Alzheimer's dementia, chronic anemia, anxiety, BPH with obstruction, coronary artery disease, chronic kidney disease, congestive heart failure, hypertension, high cholesterol, prostate cancer, mitral regurgitation, osteoarthritis, and Parkinson's disease. PAST SURGICAL HISTORY: Significant for CABG and stent placement. FAMILY HISTORY: Noncontributory. SOCIAL HISTORY: Significant for a resident at a nursing facility. ALLERGIES: He has no known drug allergies. CURRENT MEDICATIONS: Include Coumadin, Lasix, Ativan, potassium, Keppra, Zosyn, Rocephin, Lopressor, Tylenol, and Zofran. PHYSICAL EXAMINATION: VITAL SIGNS: T-max was 37.6, he is currently afebrile; pulse 62, respiratory rate 22, blood pressure is 125/69, and oxygen saturation is 94% on 4 liters nasal cannula. GENERAL: He is awake and alert. He is in no acute distress. HEENT: Mucous membranes are moist. Extraocular muscles are intact. HEART: Regular. I do not auscultate murmur. LUNGS: Clear bilaterally. ABDOMEN: Soft, nontender, and nondistended. EXTREMITIES: There is no lower extremity edema bilaterally. SKIN: Without rash. Left upper extremity midline is clean, dry and intact with no surrounding erythema or induration. LABORATORY STUDIES: CBC today with white blood cell count of 10.5, hemoglobin 9.2, and platelets are 159. Chemistry panel reveals a sodium of 142, potassium of 2.6, chloride 100, bicarbonate 36, BUN 15, creatinine 0.9, and glucose is 134. LFTs were normal in the Emergency Room. Again, a urinalysis had greater than 30 WBCs, but no nitrites. There are small leukocyte esterase and no bacteria. Blood and urine cultures are pending. Brain MRI was unremarkable. Head CT had no acute change. Chest x-ray done in the ER was negative for edema or pneumonia. ASSESSMENT AND PLAN: 1. 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 2. Leukocytosis. I suspect that this is secondary to recent seizure activity. There is no clear etiology for seizure; however, beta lactam antibiotics can lower seizure threshold, but I am not convinced that this was the etiology as he has been on ampicillin for some time and has tolerated it well. His urinalysis does not appear to suggest urinary tract infection. Blood and urine cultures are pending. Certainly if these are negative, he can be transitioned to his current course of antibiotics to complete his treatment for endocarditis and follow with ID as an outpatient. There is no evidence of septic pulmonary embolism on chest x-ray. Certainly repeat echo could be performed if there is concern. Thank you for this consultation.
--- NOTE | 2017-03-20 13:51 | Neurology Consultation ---
Neurology Consultation Date of Consultation: March 20, 2017. Attending Physician: Kenneth Belcher MD Primary Care Physician: Earl Lombardo MD Reason for Consultation: new onset seizure History of Present Illness Source: patient Wes is a 81 year old male who has a H afib, dementia, parkinson's disease, CABG 2004, and a history of prostrate CA presents after seizure like activity. The first according to hospital note was witnessed by family at the SNF which was his entire body and had bitten his tongue during the episode no bowel or bladder incontinence. Then a second seizure in the ambulance and then a third in the ED which was tonic clonic like in nature and postictal confusion. He was given Keppra in the ED. According to the family he has no history of any seizure or seizure like activity. He did have a recent admission on January for pneumonia and UTI. 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 He is currently being treated with Zoysn and Rocepin but Dr Parks infectious disease. regimen which was confirmed on allscripts is ampicillin 2 G q 6 and Rocephin 1 G daily which he is receiving via PICC. There is no family in the room and he is not aware why he is in the hospital be he does know that he fell. he denies having any seizure activity. He would like to eat. denies CP , SOB, abdominal pain, N, V, swallowing difficulties. He walks with a walker baseline and currently has a macario catheter. His daugther states he sees Dr Silva in [place] for his dementia and parkinson's disease. Past Medical/Surgical History Medical Problems: (1) Anemia Status: Acute (2) CHF (congestive heart failure) Status: Acute (3) Hypokalemia Status: Acute (4) New onset a-fib Status: Acute (5) Sepsis Status: Acute (6) Status epilepticus Status: Acute Social History Smoking Status: Never smoker Smokeless Tobacco Use: No Alcohol Use: none Drug Use: none Marital Status: Housing Status: assisted living Occupation Status: retired Allergies Coded Allergies: No Known Allergies (Verified , 02/01/17) Current Inpatient Medications Current Inpatient Medications Medications (Trade) Dose Ordered Sig/Maraí Route Start Time Stop Time Status Last Admin Dose Admin Acetaminophen (Tylenol Tab) 650 mg Q4H PRN PO 03/19/17 19:45 04/18/17 19:44 Ondansetron HCl (Zofran Inj) 4 mg Q6H PRN IV 03/19/17 19:45 04/18/17 19:44 Lorazepam 1 mg 1 mg DAILY PRN IV 03/19/17 20:00 04/18/17 19:59 Piperacillin Sod/ Tazobactam Sod 3.375 gm/Dextrose 115 ml @ 28.75 mls/ hr Q8H IV 03/20/17 02:00 05/01/17 01:59 03/20/17 08:53 28.75 MLS/HR Levetiracetam 500 mg/Dextrose 105 ml @ 420 mls/hr Q12H IV 03/20/17 06:00 04/19/17 05:59 03/20/17 05:46 420 MLS/HR Furosemide 40 mg/ Syringe 4 ml @ 4 mls/min DAILY IV 03/20/17 09:00 04/19/17 08:59 03/20/17 08:53 4 MLS/MIN Ceftriaxone Sodium/Dextrose (Rocephin Inj/ Dextrose Add-[place] 50ML) 50 ml @ 100 mls/hr Q24H IV 03/19/17 22:00 04/30/17 21:59 03/19/17 22:30 100 MLS/HR Lorazepam (Ativan Inj) 1 mg DAILY IV 03/20/17 09:00 04/19/17 08:59 Metoprolol Tartrate (Lopressor Iv) 5 mg Q5M PRN IV 03/19/17 20:00 04/18/17 19:59 Warfarin Sodium (Coumadin Tab) 5 mg DAILY@16 PO 03/20/17 16:00 04/19/17 15:59 Piperacillin Sod/ Tazobactam Sod (Consult) 1 ea UD PRN N/A 03/19/17 20:45 04/18/17 20:44 Gadobutrol 11 mmol 11 mmol UD PRN IV 03/19/17 22:15 03/23/17 22:14 Potassium Chloride/Sodium Chloride (KCl Inj/Nss 1000ml) 1,010 ml @ 75 mls/hr [id number] IV 03/19/17 23:00 03/21/17 15:23 03/20/17 12:32 75 MLS/HR Physical Exam Vital Signs (Past 24 Hrs): Date Time Temp Pulse Resp B/P Pulse Ox O2 Delivery O2 Flow Rate FiO2 03/20/17 12:00 95 Nasal Cannula 4.0 03/20/17 08:00 94 Nasal Cannula 4.0 03/20/17 07:42 36.6 62 22 125/69 94 Room Air 03/20/17 04:00 Nasal Cannula 4.0 03/20/17 03:45 37.6 63 18 146/63 97 Nasal Cannula 4.0 03/20/17 00:00 99 Nasal Cannula 4.0 03/19/17 23:24 36.9 68 20 136/71 99 Nasal Cannula 4.0 03/19/17 21:15 36.9 70 18 158/77 98 Nasal Cannula 2.0 03/19/17 20:26 36.7 61 26 126/65 99 03/19/17 20:10 61 26 126/65 99 03/19/17 19:29 64 17 128/71 99 Nasal Cannula 4.0 03/19/17 19:24 64 18 100 03/19/17 19:19 62 18 100 03/19/17 19:14 65 19 100 03/19/17 19:09 63 29 100 03/19/17 19:04 68 20 100 03/19/17 19:01 131/70 03/19/17 18:59 60 28 100 03/19/17 18:54 67 34 100 03/19/17 18:49 64 22 99 03/19/17 18:44 68 18 100 03/19/17 18:42 68 18 143/73 100 Non-Rebreather 03/19/17 18:40 143/73 03/19/17 18:39 66 26 100 03/19/17 18:19 61 17 87 03/19/17 18:14 69 25 98 03/19/17 18:09 66 23 96 03/19/17 18:04 69 18 96 03/19/17 17:59 66 21 96 03/19/17 17:54 65 19 98 03/19/17 17:49 66 18 95 03/19/17 17:44 64 21 96 03/19/17 17:39 72 17 94 03/19/17 17:34 68 20 96 03/19/17 17:33 92 Mask 6.0 03/19/17 17:29 66 21 89 03/19/17 17:24 69 20 94 03/19/17 17:19 68 19 94 03/19/17 17:14 65 21 93 03/19/17 17:14 36.7 68 20 152/83 87 Room Air Nasal Cannula 03/19/17 17:10 67 03/19/17 17:09 71 22 91 03/19/17 17:06 152/83 Physical Exam: Constitutional: appearance nourished, obese, masked facies, decreased blink frequency Ears, Nose, Mouth and Throat: mucous membranes moist, no injection and skin normal, eyes normal Cardiovascular: irregular Respiratory: course breath sound Musculoskeletal: LE edema bilaterally 2+ Skin: no stigmata of neurocutaneous disease noted and normal and intact Eyes: extraocular muscles intact (EOMI) and pupils equal, round and reactive to light (PERRL) NEUROLOGIC EXAMINATION: Mental status: Alert and interactive does not know where he is and does not remember he had a seizure does not know who the president is or the year Cranial Nerves Normal findings for Cranial Nerves II - XII Reflexes: Deep tendon reflexes were symmetrical and graded 2/5. Sensory: intact to vibration and GT proprioception Coordination: finger to nose with reaching tremor, cog wheeling on the right and resting tremor Gait/Stance: Posture lying in bed Motor: Negative for pronator drift of out stretched arms with eyes closed. Strength: hand sharepoint web developer 5/5 bilaterally biceps triceps 4/5, unable to lift legs against gravity Laboratory Results Past 24 Hours: 03/20/17 07:03 Red Blood Count 3.37, Mean Corpuscular Volume 91.7, Mean Corpuscular Hemoglobin 27.3, Mean Corpuscular Hemoglobin Concent 29.8, Mean Platelet Volume 8.7, Neutrophils (%) (Auto) 83.5, Lymphocytes (%) (Auto) 9.0, Monocytes (%) (Auto) 7.1, Eosinophils (%) (Auto) 0.1, Basophils (%) (Auto) 0.1, Neutrophils # (Auto) 9.14, Lymphocytes # (Auto) 0.99, Monocytes # (Auto) 0.78, Eosinophils # (Auto) 0.01, Basophils # (Auto) 0.01 03/20/17 07:03 Test 03/19/17 17:29 03/19/17 18:10 03/19/17 18:45 03/19/17 19:25 Bedside Glucose 127 mg/dl (70-99) Phosphorus Level 2.5 mg/dl (2.5-4.9) Magnesium Level 1.9 mg/dl (1.8-2.4) Total Bilirubin 0.3 mg/dl (0.2-1) Aspartate Amino Transf (AST/SGOT) 20 U/L (15-37) Alanine Aminotransferase (ALT/SGPT) 18 U/L (12-78) Alkaline Phosphatase 71 U/L (45-117) Total Protein 8.5 gm/dl (6.4-8.2) Albumin 3.0 gm/dl (3.4-5.0) Globulin 5.5 gm/dl (2.5-4.0) Albumin/Globulin Ratio 0.5 (0.9-2) Urine Color YELLOW Urine Appearance CLEAR (CLEAR) Urine pH 7.5 (4.5-7.5) Urine Specific [place] 1.013 (1.000-1.030) Urine Protein 1+ (NEG) Urine Glucose (UA) NEG (NEG) Urine Ketones NEG (NEG) Urine Occult Blood 1+ (NEG) Urine Nitrite NEG (NEG) Urine Bilirubin NEG (NEG) Urine Urobilinogen NEG (NEG) Urine Leukocyte Esterase SMALL (NEG) Urine WBC (Auto) >30 /hpf (0-5) Urine RBC (Auto) 10-30 /hpf (0-4) Urine Hyaline Casts (Auto) 1-5 /lpf (0-5) Urine Epithelial Cells (Auto) 10-20 /lpf (0-5) Urine Bacteria (Auto) NEG (NEG) Venous Blood pH 7.49 (7.36-7.41) Venous Blood Partial Pressure CO2 38 mmHg (38.0-50.0) Venous Blood Partial Pressure O2 73 mmHg Venous Blood HCO3 28 mmol/L Venous Blood Oxygen Saturation 93.8 % Venous Blood Base Excess 4.6 mmol/L Test 03/20/17 07:03 White Blood Count 10.95 K/uL (4.8-10.8) Red Blood Count 3.37 M/uL (4.7-6.1) Hemoglobin 9.2 g/dL (14.0-18.0) Hematocrit 30.9 % (42-52) Mean Corpuscular Volume 91.7 fL (80-100) Mean Corpuscular Hemoglobin 27.3 pg (25-34) Mean Corpuscular Hemoglobin Concent 29.8 g/dl (32-36) Platelet Count 159 K/uL (130-400) Mean Platelet Volume 8.7 fL (7.4-10.4) Neutrophils (%) (Auto) 83.5 % Lymphocytes (%) (Auto) 9.0 % Monocytes (%) (Auto) 7.1 % Eosinophils (%) (Auto) 0.1 % Basophils (%) (Auto) 0.1 % Neutrophils # (Auto) 9.14 K/uL (1.4-6.5) Lymphocytes # (Auto) 0.99 K/uL (1.2-3.4) Monocytes # (Auto) 0.78 K/uL (0.11-0.59) Eosinophils # (Auto) 0.01 K/uL (0-0.5) Basophils # (Auto) 0.01 K/uL (0-0.2) RDW Standard Deviation 61.0 fL (36.4-46.3) RDW Coefficient of Variation 18.0 % (11.5-14.5) Immature Granulocyte % (Auto) 0.2 % Immature Granulocyte # (Auto) 0.02 K/uL (0.00-0.02) Prothrombin Time 30.1 SECONDS (9.0-12.0) Prothromb Time International Ratio 2.7 (0.9-1.1) Anion Gap 6.0 mmol/L (3-11) Est Creatinine Clear Calc Drug Dose 70.8 ml/min Estimated GFR () 85.0 Estimated GFR (Non- 73.3 BUN/Creatinine Ratio 15.4 (10-20) Estimated Average Glucose 114 mg/dl Hemoglobin A1c 5.6 % (4.5-5.6) Calcium Level 8.1 mg/dl (8.5-10.1) Troponin I 0.036 ng/ml (0-0.045) Imaging MRI brain with and without contrast- No acute intracranial abnormality. T2 hyperintensity seen within the periventricular and subcortical white matter is nonspecific but favors moderate microvascular ischemic change. This remains unchanged. Impression 81 year old male extensive PMH with new onset seizure disorder Plan 1. MRI brain with and without contrast no lesions or structural issues 2. Keppra 500 mg q 12 hours for now 3. EEG no new findings 4. TTE pending read 5. ID Rocephin and Ampicillin does have profile for possible seizure but not common. 6. macario catheter in place unclear if this is new 7. 3 witnessed seizures with biting of tongue and confusion. will need Keppra for rest of life. watch for mood changes 8. Shira, neurology [place] treating patient with Namenda XR 28 mg pm and requip .50 mg TID both are on hold currently 9. ok to eat but needs to be in upright position and aid available. may be beneficial to have formal swallowing study 10. PT/OT for discharge needs 11. coumadin -continue to monitor 12. carotid doppler- for any significant stenosis I have seen and discussed above patient with Dr Shantelle Hernandez, neurology Hx and imaging, labs reviewed. Recent endocarditis/valve veget in setting of urosepsis. Pt on am[place] as outpt in [place]. 3 genl sz noted yesterday, no clear documented hypotension or significant hypoxemia. No drug withdrawal or obvious significantly etiologic meds.MRI brain, no abscess, infarct. Labs noncontributory. Low grade temp. No recurrence on keppra 500 mg twice a day. Pt denies carias, prior sz, new neuro deficit. Awake alert, facial masking, bl rest tremor with cogwheeling, symmetric strength. Bl tremor with intention Imp, new sz, in this pt age category most likely vascular but the setting is concerning given the possibility of cardiac embolism or meningeal seeding, none of which appear to be clinically or radiographically present. Agree with Keppra. carotid us to complete vascular workup and close monitoring for new neuro sx or meningeal signs, fever, leukocytosis. ET. Hx of dementia, possibly vascular. 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 FAUSTO Hernandez MD
--- NOTE | 2017-03-20 14:50 | ECHOCARDIOGRAM REPORT ---
*NOTICE TO RECEIVING LIBERTARIAN AGENCY This information is strictly Confidential and protected under [place] law. [place] law prohibits you from making any further disclosure of this information unless further disclosure is expressly permitted by the written consent of the person to whom it pertains or is authorized by law. A general authorization for the release of medical or other information is not sufficient for this purpose. Hospital accepts no responsibility if the information is made available to any other person, INCLUDING THE PATIENT. Interpretation Summary * Name: JOSSELYN GALICIA Study Date: 03/20/2017 01:47 PM BP: 125/69 mmHg * Patient Location: [facility]\S\E208\S\1 HR: 62 * : 1935 (M/d/yyyy) Gender: Male Height: 72 in * Age: 81 yrs Ethnicity: [place] Weight: 255 lb * Ordering Physician: Jennifer Yo * Referring Physician: Self, Referred * Performed By: Salome Edge RDCS * * Reason For Study: ASSESS PULMONIC VALVE VEGETATION * BSA: 2.4 m2 * -- Conclusions -- * Limited views were obtained. * There is a large vegetation or mass on the pulmonic valve. * Compared to a study from 02/04/2017, the pulmonic vegetation is slightly smaller. * No change in valve function Procedure Details * Limited views were obtained. Pulmonic Valve * There is a large vegetation or mass on the pulmonic valve.
[2017-03-20] MEDS: WARFARIN SOD 5 MG TAB PO SCH (16:21)
--- NOTE | 2017-03-20 16:21 | Family Medicine Progress Note ---
Progress Note Date of Service March 20, 2017. 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 He also had 2 more episodes of seizures while on route and in the ER which were noted to be tonic clonic, associated with bowel incontinence. No history of trauma, was being treated for endocarditis secondary to bacteremia from urinary tract infection. Oriented to self, no new seizures overnight. Denies any headache, weakness, numbness or tingling, headache, fevers or chills. Complains of being hungry Constitutional: No chills, No fever Eyes: No worsening of vision ENT: No hearing loss Respiratory: No cough, No sputum Cardiovascular: No chest pain Abdomen: No nausea, No pain Male : + incontinence, No dysuria, No urinary frequency Neurologic: + problem reported (seizure), No memory loss Heme: No abnormal bleeding/bruising Endo: No fatigue Medications Current Inpatient Medications Medications (Trade) Dose Ordered Sig/María Route Start Time Stop Time Status Last Admin Dose Admin Acetaminophen (Tylenol Tab) 650 mg Q4H PRN PO 03/19/17 19:45 04/18/17 19:44 Ondansetron HCl (Zofran Inj) 4 mg Q6H PRN IV 03/19/17 19:45 04/18/17 19:44 Lorazepam 1 mg 1 mg DAILY PRN IV 03/19/17 20:00 04/18/17 19:59 Piperacillin Sod/ Tazobactam Sod 3.375 gm/Dextrose 115 ml @ 28.75 mls/ hr Q8H IV 03/20/17 02:00 05/01/17 01:59 03/20/17 08:53 28.75 MLS/HR Levetiracetam 500 mg/Dextrose 105 ml @ 420 mls/hr Q12H IV 03/20/17 06:00 04/19/17 05:59 03/20/17 05:46 420 MLS/HR Furosemide 40 mg/ Syringe 4 ml @ 4 mls/min DAILY IV 03/20/17 09:00 04/19/17 08:59 03/20/17 08:53 4 MLS/MIN Ceftriaxone Sodium/Dextrose (Rocephin Inj/ Dextrose Add-[place] 50ML) 50 ml @ 100 mls/hr Q24H IV 03/19/17 22:00 04/30/17 21:59 03/19/17 22:30 100 MLS/HR Lorazepam (Ativan Inj) 1 mg DAILY IV 03/20/17 09:00 04/19/17 08:59 Metoprolol Tartrate (Lopressor Iv) 5 mg Q5M PRN IV 03/19/17 20:00 04/18/17 19:59 Warfarin Sodium (Coumadin Tab) 5 mg DAILY@16 PO 03/20/17 16:00 04/19/17 15:59 03/20/17 16:21 5 MG Piperacillin Sod/ Tazobactam Sod (Consult) 1 ea UD PRN N/A 03/19/17 20:45 04/18/17 20:44 Gadobutrol 11 mmol 11 mmol UD PRN IV 03/19/17 22:15 03/23/17 22:14 Potassium Chloride/Sodium Chloride (KCl Inj/Nss 1000ml) 1,010 ml @ 75 mls/hr [id number] IV 03/19/17 23:00 03/21/17 15:23 03/20/17 12:32 75 MLS/HR Objective Vital Signs Date Time Temp Pulse Resp B/P Pulse Ox O2 Delivery O2 Flow Rate FiO2 03/20/17 16:47 36.5 77 20 98 Room Air 100.0 03/20/17 16:00 97 Nasal Cannula 4.0 03/20/17 12:00 95 Nasal Cannula 4.0 03/20/17 08:00 94 Nasal Cannula 4.0 03/20/17 07:42 36.6 62 22 125/69 94 Room Air 03/20/17 04:00 Nasal Cannula 4.0 03/20/17 03:45 37.6 63 18 146/63 97 Nasal Cannula 4.0 03/20/17 00:00 99 Nasal Cannula 4.0 03/19/17 23:24 36.9 68 20 136/71 99 Nasal Cannula 4.0 03/19/17 21:15 36.9 70 18 158/77 98 Nasal Cannula 2.0 03/19/17 20:26 36.7 61 26 126/65 99 03/19/17 20:10 61 26 126/65 99 03/19/17 19:29 64 17 128/71 99 Nasal Cannula 4.0 03/19/17 19:24 64 18 100 03/19/17 19:19 62 18 100 03/19/17 19:14 65 19 100 03/19/17 19:09 63 29 100 03/19/17 19:04 68 20 100 03/19/17 19:01 131/70 03/19/17 18:59 60 28 100 03/19/17 18:54 67 34 100 03/19/17 18:49 64 22 99 03/19/17 18:44 68 18 100 03/19/17 18:42 68 18 143/73 100 Non-Rebreather 03/19/17 18:40 143/73 03/19/17 18:39 66 26 100 03/19/17 18:19 61 17 87 03/19/17 18:14 69 25 98 03/19/17 18:09 66 23 96 03/19/17 18:04 69 18 96 03/19/17 17:59 66 21 96 03/19/17 17:54 65 19 98 03/19/17 17:49 66 18 95 03/19/17 17:44 64 21 96 03/19/17 17:39 72 17 94 03/19/17 17:34 68 20 96 03/19/17 17:33 92 Mask 6.0 03/19/17 17:29 66 21 89 03/19/17 17:24 69 20 94 03/19/17 17:19 68 19 94 Physical Exam General Appearance: WD/WN, no apparent distress Eyes: normal inspection ENT: normal ENT inspection, hearing grossly normal Neck: supple Respiratory/Chest: chest non-tender, lungs clear, normal breath sounds, no respiratory distress, no accessory muscle use Cardiovascular: regular rate, rhythm Abdomen: normal bowel sounds, non tender, soft Extremities: normal range of motion, non-tender, + pedal edema (bilaterally) Neurologic/Psychiatric: slip filler II-XII nml as tested, no motor/sensory deficits, alert, normal mood/affect Skin: normal color Laboratory Results 03/20/17 07:03 Red Blood Count 3.37, Mean Corpuscular Volume 91.7, Mean Corpuscular Hemoglobin 27.3, Mean Corpuscular Hemoglobin Concent 29.8, Mean Platelet Volume 8.7, Neutrophils (%) (Auto) 83.5, Lymphocytes (%) (Auto) 9.0, Monocytes (%) (Auto) 7.1, Eosinophils (%) (Auto) 0.1, Basophils (%) (Auto) 0.1, Neutrophils # (Auto) 9.14, Lymphocytes # (Auto) 0.99, Monocytes # (Auto) 0.78, Eosinophils # (Auto) 0.01, Basophils # (Auto) 0.01 Test 03/19/17 17:29 03/19/17 18:10 03/19/17 18:45 03/19/17 19:25 Bedside Glucose 127 mg/dl (70-99) Phosphorus Level 2.5 mg/dl (2.5-4.9) Magnesium Level 1.9 mg/dl (1.8-2.4) Total Bilirubin 0.3 mg/dl (0.2-1) Aspartate Amino Transf (AST/SGOT) 20 U/L (15-37) Alanine Aminotransferase (ALT/SGPT) 18 U/L (12-78) Alkaline Phosphatase 71 U/L (45-117) Total Protein 8.5 gm/dl (6.4-8.2) Albumin 3.0 gm/dl (3.4-5.0) Globulin 5.5 gm/dl (2.5-4.0) Albumin/Globulin Ratio 0.5 (0.9-2) Urine Color YELLOW Urine Appearance CLEAR (CLEAR) Urine pH 7.5 (4.5-7.5) Urine Specific [place] 1.013 (1.000-1.030) Urine Protein 1+ (NEG) Urine Glucose (UA) NEG (NEG) Urine Ketones NEG (NEG) Urine Occult Blood 1+ (NEG) Urine Nitrite NEG (NEG) Urine Bilirubin NEG (NEG) Urine Urobilinogen NEG (NEG) Urine Leukocyte Esterase SMALL (NEG) Urine WBC (Auto) >30 /hpf (0-5) Urine RBC (Auto) 10-30 /hpf (0-4) Urine Hyaline Casts (Auto) 1-5 /lpf (0-5) Urine Epithelial Cells (Auto) 10-20 /lpf (0-5) Urine Bacteria (Auto) NEG (NEG) Venous Blood pH 7.49 (7.36-7.41) Venous Blood Partial Pressure CO2 38 mmHg (38.0-50.0) Venous Blood Partial Pressure O2 73 mmHg Venous Blood HCO3 28 mmol/L Venous Blood Oxygen Saturation 93.8 % Venous Blood Base Excess 4.6 mmol/L Test 03/20/17 07:03 03/20/17 16:45 White Blood Count 10.95 K/uL (4.8-10.8) Red Blood Count 3.37 M/uL (4.7-6.1) Hemoglobin 9.2 g/dL (14.0-18.0) Hematocrit 30.9 % (42-52) Mean Corpuscular Volume 91.7 fL (80-100) Mean Corpuscular Hemoglobin 27.3 pg (25-34) Mean Corpuscular Hemoglobin Concent 29.8 g/dl (32-36) Platelet Count 159 K/uL (130-400) Mean Platelet Volume 8.7 fL (7.4-10.4) Neutrophils (%) (Auto) 83.5 % Lymphocytes (%) (Auto) 9.0 % Monocytes (%) (Auto) 7.1 % Eosinophils (%) (Auto) 0.1 % Basophils (%) (Auto) 0.1 % Neutrophils # (Auto) 9.14 K/uL (1.4-6.5) Lymphocytes # (Auto) 0.99 K/uL (1.2-3.4) Monocytes # (Auto) 0.78 K/uL (0.11-0.59) Eosinophils # (Auto) 0.01 K/uL (0-0.5) Basophils # (Auto) 0.01 K/uL (0-0.2) RDW Standard Deviation 61.0 fL (36.4-46.3) RDW Coefficient of Variation 18.0 % (11.5-14.5) Immature Granulocyte % (Auto) 0.2 % Immature Granulocyte # (Auto) 0.02 K/uL (0.00-0.02) Prothrombin Time 30.1 SECONDS (9.0-12.0) Prothromb Time International Ratio 2.7 (0.9-1.1) Est Creatinine Clear Calc Drug Dose 70.8 ml/min Estimated Average Glucose 114 mg/dl Hemoglobin A1c 5.6 % (4.5-5.6) Troponin I 0.036 ng/ml (0-0.045) Assessment and Plan 81 year-old male with a past medical history of dementia, chronic kidney disease, coronary artery disease status post CABG, heart failure, hypertension, hyperlipidemia, prostate cancer, atrial fibrillation, 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 Received loading dose of Keppra while in the ER and no new seizure activities overnight. New onset seizures: - Head CT : No acute intracranial abnormality. Atrophy and microvascular ischemic changes. - MRI head:No acute intracranial abnormality. T2 hyperintensity seen within the periventricular and subcortical white matter is nonspecific but favors moderate microvascular ischemic change. This remains unchanged. - EEG no new changes - Neurology consult - appreciate recommendations - Continue Keppra 500 mg twice a day - Ativan when necessary for seizures - Speech consult Infectious endocarditis of pulmonary valve: - Continue Rocephin - Ampicillin switched to Zosyn due to concerns of lowering seizure threshold with ampicillin - ID consult- appreciate input - Echo: * There is a large vegetation or mass on the pulmonic valve. * Compared to a study from 02/04/2017, the pulmonic vegetation is slightly smaller. * No change in valve function Hypokalemia: - K at 2.6, repleted - Recheck BMP in the afternoon, monitor K level Atrial fibrillation: Rate control with carvedilol, metoprolol (currently held until cleared by speech ) - Continue Coumadin for anti-coagulation - INR within goal range Chronic congestive heart failure: - Continue Lasix as scheduled -Metolazone currently held due to hypokalemia Dementia: - Continue donepezil, memantine, ropinirole, Risperdal( currently held) - Ativan Depression: - Continue Zoloft(currently held) BPH: -Continue finasteride Sleep apnea: - CPAP Due to prophylaxis Coumadin DO NOT RESUSCITATE Disposition: Telemetry, monitor for seizure activity Kyaw garcia- [phone] [facility]- [phone] Resident Tracking Resident Involvement: Resident Care Provided Care Provided: Adult Hospital Medicine History Resident Physician Supervision Note: I was present with Dr. Jennings during the history and exam. I discussed the case with the resident and agree with the findings and plan as documented in the note. Any exceptions or clarifications are listed here. Pt seen and examined at bedside. No acute events overnight. Resting comfortably in chair at bedside. Reports no TODD, vision changes, CP/SOB, palpitations, nausea , paresthesias, confusion. General Appearance: WD/WN, no apparent distress Respiratory: chest non-tender, lungs clear, normal breath sounds, no respiratory distress Cardiovascular: normal peripheral pulses, regular rate, rhythm, no murmur Neurologic/Psychiatric: slip filler II-XII nml as tested, alert, normal mood/affect Assessment/Plan 81 y/o male h/o dementia, CKD, CAD s/p CABG, HF, HTN, HLD, atrial fibrillation currently w/ endocarditis under therapy w/ new onset seizure Seizure disorder, new - neurology consulted, input appreciated - EEG, MRI, CT head completed - continue keppra, ativan PRN - PLATFORM MAN consulted Endocarditis (pulmonary valve) - continue rocephin/zosyn (would transition back to ampicillin as outpatient) - ID consulted for further input on potential abx regimen Hypokalemia - 2.6 this AM (repleted) --> 3.9 presently. Recheck BMP in AM Atrial fibrillation, rate controlled - continue carvedilol, metoprolol, coumadin Chronic congestive heart failure - continue Lasix, holding metolazone (would restart as outpatient) Dementia - continue donepezil, memantine, ropinirole, risperidone Depression - continue sertraline BPH - continue finasteride Sleep apnea - CPAP DNR
[2017-03-20 17:47] LABS: BUN/CREATININE RATIO 12.6 (10-20); CREATININE 1.2 mg/dl (0.60-1.40)
[2017-03-20 17:48] LABS: POTASSIUM 3.9 mmol/L (3.5-5.1)
[2017-03-20 18:07] LABS: CALCIUM 8.5 mg/dl (8.5-10.1)
[2017-03-20] MEDS: FINASTERIDE 5 MG TAB PO SCH (21:10)
[2017-03-20] MEDS: ROPINIROLE HCL 0.25 MG TAB PO SCH (21:11)
[2017-03-20] MEDS: RISPERIDONE 0.5 MG TAB PO SCH (21:11)
[2017-03-20] MEDS: DONEPEZIL HCL 5 MG TAB PO SCH (21:12)
[2017-03-20] MEDS: CARVEDILOL 6.25 MG TAB PO SCH (21:12)
[2017-03-20] MEDS: POTASSIUM CHLORIDE 20 MEQ TABCR PO SCH (21:13)
[2017-03-20] MEDS: ACETAMINOPHEN 500 MG TAB PO SCH (21:13)
[2017-03-20] MEDS: CEFTRIAXONE SOD INJ 1 GM in DEXTROSE 5% ADD-VANTAGE 50ML 50 ML IV SCH (21:49)
[2017-03-20] MEDS: OXYCODONE HCL IR 5 MG TAB (IMMEDIATE RELEASE) PO SCH (21:49)
[2017-03-20] MEDS: NAMENDA XR - ORDER AWAITING ACTION SCH (22:58)
[2017-03-21] VITALS (9 sets, daily range): BP systolic 132–152; BP diastolic 67–77; PULSE 50–72; TEMP 36.4–37; O2SAT 91–98
[2017-03-21] MEDS: PIPERACILL/TAZOBAC IV 3.375 GM in DEXTROSE 5% 100ML 100 ML IV SCH ×3 (01:51→17:05)
[2017-03-21] MEDS: OXYCODONE HCL IR 5 MG TAB (IMMEDIATE RELEASE) PO SCH ×3 (05:37→22:34)
[2017-03-21] MEDS: LEVETIRACETAM IV 500 MG in DEXTROSE 5% 100ML 100 ML IV SCH ×2 (05:58→16:23)
[2017-03-21] MEDS: POTASSIUM CHLORIDE INJ 20 MEQ in SODIUM CHLORIDE 0.9% 1000ML 1,000 ML IV SCH (06:37)
--- NOTE | 2017-03-21 07:03 | ELECTROENCEPHALOGRAPH REPORT ---
REQUESTING PHYSICIAN: Jennifer Yo MD. CLINICAL DIAGNOSIS: History of seizures. ELECTROENCEPHALOGRAM DIAGNOSIS: Essentially normal during wakefulness. DESCRIPTION OF TRACING: This EEG was done as a bedside recording with simultaneous video analysis of patient's movement and behavior. Photic stimulation was performed. Hyperventilation was not. Drowsiness and light sleep are not clearly recorded. Under these conditions, there is evidence for what appears to be a normal background rhythm in the alpha range of about 9 Hz of maximum frequency and 20-30 microvolts of maximum amplitude. This is maximum posterior head regions and bilaterally symmetrical. Polymorphic mid frequency theta activity of modest low voltage is seen over all head regions without clear focal or regional predominance. Anterior head region is maximum bilaterally symmetrical low voltage fast activity in the beta range is present. At no time during the waking tracing is there evidence for potentially epileptogenic activity in the form of polyspike or spike wave bursts, focal sharp waves or focal spikes. Photic stimulation provokes some minimal driving response at most flash frequencies. INTERPRETATION: This EEG is essentially normal during wakefulness without evidence for focal or generalized encephalopathy and without evidence for potentially epileptogenic activity.
--- NOTE | 2017-03-21 07:15 | DIAGNOSTIC IMAGING REPORT ---
ULTRASOUND OF THE CAROTID ARTERIES CLINICAL HISTORY: Seizure. COMPARISON STUDY: Carotid artery ultrasound dated 03/07/2011. TECHNIQUE: Real-time, grayscale, and color Doppler sonography of the carotid arteries is performed. Images are reviewed in the transverse and longitudinal planes. FINDINGS: Blood pressures were not assessed due to limb restrictions. The carotid arteries are patent bilaterally and demonstrate antegrade flow. There is mild atherosclerotic plaque seen. Normal doppler arterial waveforms are seen bilaterally throughout. Several the cardiac pulsations appear irregular. Velocity measurements are listed below. Common carotid peak systolic velocity (cm/sec): RIGHT: 53 LEFT: 89 ICA proximal peak systolic velocity (cm/sec): RIGHT: 98 LEFT: 84 ICA mid peak systolic velocity (cm/sec): RIGHT: 76 LEFT: 85 ICA distal peak systolic velocity (cm/sec): RIGHT: 98 LEFT: 101 ICA/CC peak systolic ratio: RIGHT: 1.8 LEFT: 1.1 Antegrade flow was shown in the vertebral arteries. The external carotid arteries are patent. IMPRESSION: 1. There is no sonographic evidence of hemodynamically significant stenosis in the right or left carotid arterial system. 2. Antegrade flow is shown in the vertebral arteries. 3. Several of the cardiac pulsations appear irregular. Correlate clinically and with EKG for evidence of arrhythmia. Electronically signed by: Oneil Chaudhary M.D. 03/21/2017 7:13 AM Dictated Date/Time: 03/21/2017 7:11 AM
[2017-03-21] MEDS: SERTRALINE HCL 100 MG TAB PO SCH (07:35)
[2017-03-21] MEDS: LISINOPRIL 40 MG TAB PO SCH (07:35)
[2017-03-21] MEDS: SIMVASTATIN 20 MG TAB PO SCH (07:35)
[2017-03-21] MEDS: POTASSIUM CHLORIDE 20 MEQ TABCR PO SCH ×3 (07:36→20:30)
[2017-03-21] MEDS: ROPINIROLE HCL 0.25 MG TAB PO SCH ×3 (07:36→20:30)
[2017-03-21] MEDS: AMLODIPINE BESYLATE 5 MG TAB PO SCH (07:36)
[2017-03-21] MEDS: CARVEDILOL 6.25 MG TAB PO SCH ×2 (07:37→20:30)
[2017-03-21] MEDS: FERROUS GLUCONATE 324 MG TAB PO SCH (07:37)
[2017-03-21] MEDS: ASPIRIN 81 MG ECTAB PO SCH (07:37)
[2017-03-21] MEDS: ACETAMINOPHEN 500 MG TAB PO SCH ×3 (07:37→20:30)
[2017-03-21] MEDS: RISPERIDONE 0.5 MG TAB PO SCH ×2 (07:38→20:30)
[2017-03-21 07:54] LABS: BASO % 0.1 %; BASO ABS # 0.01 K/uL (0-0.2); COMPLETE YES; EOS % 1.2 %; HEMATOCRIT 33.4 % (42-52); IG% 0.2 %; LYMPH % 13.7 %; LYMPH ABS # 1.37 K/uL (1.2-3.4); MEAN CELL VOLUME 92.5 fL (80-100); MEAN CORPUSCULAR HEMOGLOBIN 27.7 pg (25-34); MEAN CORPUSCULAR HGB CONC 29.9 g/dl (32-36); MEAN PLATELET VOLUME 8.4 fL (7.4-10.4); MONO % 10.8 %; PLATELET COUNT 163 K/uL (130-400); RED BLOOD COUNT 3.61 M/uL (4.7-6.1); WHITE BLOOD COUNT 9.97 K/uL (4.8-10.8)
[2017-03-21 08:00] LABS: INR 2.7 (0.9-1.1); PROTHROMBIN TIME (PATIENT) 29.8 SECONDS (9.0-12.0)
[2017-03-21 08:20] LABS: BUN/CREATININE RATIO 13.9 (10-20); CREATININE 0.98 mg/dl (0.60-1.40)
[2017-03-21 08:23] LABS: CALCIUM 8.4 mg/dl (8.5-10.1)
[2017-03-21] MEDS: FUROSEMIDE INJ 40 MG in SYRINGE 0 ML IV SCH (08:25)
[2017-03-21 08:44] LABS: POTASSIUM 2.7 mmol/L (3.5-5.1)
[2017-03-21] MEDS: LORAZEPAM 2 MG/ML 1 ML VIAL IV SCH (09:45)
[2017-03-21] MEDS: POTASSIUM CHLR 10 MEQ / WTR 10 MEQ in PREMIXED WATER 100 ML IV SCH ×4 (10:09→13:56)
--- NOTE | 2017-03-21 11:40 | Family Medicine Progress Note ---
Progress Note Date of Service March 21, 2017. 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 He also had 2 more episodes of seizures while on route and in the ER which were noted to be tonic clonic, associated with bowel incontinence. No history of trauma, was being treated for endocarditis secondary to bacteremia from urinary tract infection. NO new seizures since admission. denies any numbness/tingling,weakness , headaches. wants to go home Constitutional: No chills, No fever Eyes: No worsening of vision ENT: No hearing loss Respiratory: No cough, No sputum Cardiovascular: No chest pain Abdomen: No nausea, No pain, No vomiting Musculoskeletal: No joint pain Neurologic: No memory loss, No numbness/tingling, No paralysis, No weakness Psychiatric: No depression symptoms Heme: No abnormal bleeding/bruising Medications Current Inpatient Medications Medications (Trade) Dose Ordered Sig/María Route Start Time Stop Time Status Last Admin Dose Admin Acetaminophen (Tylenol Tab) 650 mg Q4H PRN PO 03/19/17 19:45 04/18/17 19:44 Future Hold Ondansetron HCl (Zofran Inj) 4 mg Q6H PRN IV 03/19/17 19:45 04/18/17 19:44 Lorazepam 1 mg 1 mg DAILY PRN IV 03/19/17 20:00 04/18/17 19:59 Piperacillin Sod/ Tazobactam Sod 3.375 gm/Dextrose 115 ml @ 28.75 mls/ hr Q8H IV 03/20/17 02:00 05/01/17 01:59 03/21/17 10:09 28.75 MLS/HR Levetiracetam 500 mg/Dextrose 105 ml @ 420 mls/hr Q12H IV 03/20/17 06:00 04/19/17 05:59 03/21/17 05:58 420 MLS/HR Furosemide 40 mg/ Syringe 4 ml @ 4 mls/min DAILY IV 03/20/17 09:00 04/19/17 08:59 03/21/17 08:25 4 MLS/MIN Ceftriaxone Sodium/Dextrose (Rocephin Inj/ Dextrose Add-Marion 50ML) 50 ml @ 100 mls/hr Q24H IV 03/19/17 22:00 04/30/17 21:59 03/20/17 21:49 100 MLS/HR Lorazepam (Ativan Inj) 1 mg DAILY IV 03/20/17 09:00 04/19/17 08:59 Metoprolol Tartrate (Lopressor Iv) 5 mg Q5M PRN IV 03/19/17 20:00 04/18/17 19:59 Warfarin Sodium (Coumadin Tab) 5 mg DAILY@16 PO 03/20/17 16:00 04/19/17 15:59 03/20/17 16:21 5 MG Piperacillin Sod/ Tazobactam Sod (Consult) 1 ea UD PRN N/A 03/19/17 20:45 04/18/17 20:44 Gadobutrol 11 mmol 11 mmol UD PRN IV 03/19/17 22:15 03/23/17 22:14 Potassium Chloride/Sodium Chloride (KCl Inj/Nss 1000ml) 1,010 ml @ 75 mls/hr [id number] IV 03/19/17 23:00 03/21/17 15:23 03/21/17 06:37 75 MLS/HR Acetaminophen (Tylenol Tab) 1,000 mg TID PO 03/20/17 21:00 04/19/17 20:59 03/21/17 07:37 1,000 MG Amlodipine Besylate (Norvasc Tab) 10 mg QAM PO 03/21/17 09:00 04/20/17 08:59 03/21/17 07:36 10 MG Aspirin (Ecotrin Tab) 81 mg QAM PO 03/21/17 09:00 04/20/17 08:59 03/21/17 07:37 81 MG Carvedilol (Coreg Tab) 6.25 mg BID PO 03/20/17 21:00 04/19/17 20:59 03/21/17 07:37 6.25 MG Donepezil HCl (Aricept Tab) 10 mg QPM PO 03/20/17 21:00 04/19/17 20:59 03/20/17 21:12 10 MG Ferrous Gluconate (Ferrous Gluconate Tab) 324 mg DAILY PO 03/21/17 09:00 04/20/17 08:59 03/21/17 07:37 324 MG Finasteride (Proscar Tab) 5 mg QPM PO 03/20/17 21:00 04/19/17 20:59 03/20/17 21:10 5 MG Lisinopril (Zestril Tab) 40 mg QAM PO 03/21/17 09:00 04/20/17 08:59 03/21/17 07:35 40 MG Potassium Chloride (Klor-Con Tab) 20 meq TID PO 03/20/17 21:00 04/19/17 20:59 03/21/17 07:36 20 MEQ Risperidone (Risperdal Tab) 0.25 mg BID PO 03/20/17 21:00 04/19/17 20:59 03/21/17 07:38 0.25 MG Sertraline HCl (Zoloft Tab) 100 mg QAM PO 03/21/17 09:00 04/20/17 08:59 03/21/17 07:35 100 MG Simvastatin (Zocor Tab) 20 mg DAILY PO 03/21/17 09:00 04/20/17 08:59 03/21/17 07:35 20 MG Miscellaneous Information (Order Awaiting Action) 1 ea QS N/A 03/21/17 00:00 04/20/17 00:00 Oxycodone HCl (Roxicodone Immediate Rel Tab) 5 mg Q8 PO 03/20/17 22:00 04/19/17 21:59 03/21/17 05:37 5 MG Ropinirole HCl (Requip Tab) 0.5 mg TID PO 03/20/17 21:00 04/19/17 20:59 03/21/17 07:36 0.5 MG Heparin Sodium (Porcine) 5 ml 5 ml PRN PRN FLUSH 03/21/17 05:30 04/20/17 05:29 Potassium Chloride/Prmx (Kcl 10 Meq / Wtr/Premixed Water) 100 ml @ 100 mls/hr Q1H IV 03/21/17 10:00 03/21/17 13:59 03/21/17 11:14 100 MLS/HR Objective Vital Signs Date Time Temp Pulse Resp B/P Pulse Ox O2 Delivery O2 Flow Rate FiO2 03/21/17 08:26 36.4 61 18 151/76 98 Room Air 4.0 03/21/17 08:00 94 Nasal Cannula 4.0 03/21/17 04:00 Nasal Cannula 4.0 03/21/17 03:17 36.8 50 20 146/74 93 Nasal Cannula 4.0 03/21/17 00:02 37.0 66 21 148/77 97 Nasal Cannula 4.0 03/21/17 00:01 Nasal Cannula 4.0 03/20/17 20:00 Nasal Cannula 4.0 03/20/17 19:12 36.8 63 21 144/76 95 Nasal Cannula 4.0 03/20/17 16:47 36.5 77 20 98 Room Air 100.0 03/20/17 16:00 97 Nasal Cannula 4.0 03/20/17 12:00 95 Nasal Cannula 4.0 Physical Exam General Appearance: WD/WN, no apparent distress Eyes: normal inspection ENT: normal ENT inspection, hearing grossly normal Neck: supple Respiratory/Chest: chest non-tender, lungs clear, normal breath sounds, no respiratory distress Cardiovascular: + irregularly irregular Abdomen: normal bowel sounds, non tender Extremities: + pedal edema Neurologic/Psychiatric: alert, normal mood/affect Skin: normal color Laboratory Results 03/21/17 07:45 Red Blood Count 3.61, Mean Corpuscular Volume 92.5, Mean Corpuscular Hemoglobin 27.7, Mean Corpuscular Hemoglobin Concent 29.9, Mean Platelet Volume 8.4, Neutrophils (%) (Auto) 74.0, Lymphocytes (%) (Auto) 13.7, Monocytes (%) (Auto) 10.8, Eosinophils (%) (Auto) 1.2, Basophils (%) (Auto) 0.1, Neutrophils # (Auto ) 7.37, Lymphocytes # (Auto) 1.37, Monocytes # (Auto) 1.08, Eosinophils # (Auto ) 0.12, Basophils # (Auto) 0.01 03/21/17 07:45 Test 03/20/17 16:45 03/21/17 07:45 Chemistry Specimen Hemolysis White Blood Count 9.97 K/uL (4.8-10.8) Red Blood Count 3.61 M/uL (4.7-6.1) Hemoglobin 10.0 g/dL (14.0-18.0) Hematocrit 33.4 % (42-52) Mean Corpuscular Volume 92.5 fL (80-100) Mean Corpuscular Hemoglobin 27.7 pg (25-34) Mean Corpuscular Hemoglobin Concent 29.9 g/dl (32-36) Platelet Count 163 K/uL (130-400) Mean Platelet Volume 8.4 fL (7.4-10.4) Neutrophils (%) (Auto) 74.0 % Lymphocytes (%) (Auto) 13.7 % Monocytes (%) (Auto) 10.8 % Eosinophils (%) (Auto) 1.2 % Basophils (%) (Auto) 0.1 % Neutrophils # (Auto) 7.37 K/uL (1.4-6.5) Lymphocytes # (Auto) 1.37 K/uL (1.2-3.4) Monocytes # (Auto) 1.08 K/uL (0.11-0.59) Eosinophils # (Auto) 0.12 K/uL (0-0.5) Basophils # (Auto) 0.01 K/uL (0-0.2) RDW Standard Deviation 60.6 fL (36.4-46.3) RDW Coefficient of Variation 17.9 % (11.5-14.5) Immature Granulocyte % (Auto) 0.2 % Immature Granulocyte # (Auto) 0.02 K/uL (0.00-0.02) Prothrombin Time 29.8 SECONDS (9.0-12.0) Prothromb Time International Ratio 2.7 (0.9-1.1) Anion Gap 10.0 mmol/L (3-11) Est Creatinine Clear Calc Drug Dose 68.2 ml/min Estimated GFR () 82.9 Estimated GFR (Non- 71.5 BUN/Creatinine Ratio 13.9 (10-20) Calcium Level 8.4 mg/dl (8.5-10.1) Date/Time Source Procedure Growth Status 03/20/17 19:17 Nasal MRSA DNA Surveillance Screen - Final Specimen Negative for MRSA by DNA Probe Complete Assessment and Plan 81 year-old male with a past medical history of dementia, chronic kidney disease, coronary artery disease status post CABG, heart failure, hypertension, hyperlipidemia, prostate cancer, atrial fibrillation, 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 Received loading dose of Keppra while in the ER and no new seizure activities overnight. New onset seizures: - Head CT : No acute intracranial abnormality. Atrophy and microvascular ischemic changes. - MRI head:No acute intracranial abnormality. T2 hyperintensity seen within the periventricular and subcortical white matter is nonspecific but favors moderate microvascular ischemic change. This remains unchanged. - EEG no new changes - Neurology consult - appreciate recommendations - Continue Keppra 500 mg twice a day - Ativan when necessary for seizures - Carotid US- negative for stenosis - Speech consult- appreciate input Infectious endocarditis of pulmonary valve: - Continue Rocephin - Ampicillin switched to Zosyn due to concerns of lowering seizure threshold with ampicillin - ID consult- appreciate input - Echo: * There is a large vegetation or mass on the pulmonic valve. * Compared to a study from 02/04/2017, the pulmonic vegetation is slightly smaller. * No change in valve function Hypokalemia: - K at 2.7, repleted. - 20 meq TID as scheduled - Recheck BMP in the afternoon, monitor K level Atrial fibrillation: Rate control with carvedilol, metoprolol - Continue Coumadin for anti-coagulation - INR within goal range Chronic congestive heart failure: - Continue Lasix as scheduled -Metolazone currently held due to hypokalemia Dementia: - Continue donepezil, memantine, ropinirole, Risperdal - Ativan Depression: - Continue Zoloft BPH: -Continue finasteride Sleep apnea: - CPAP Due to prophylaxis Coumadin DO NOT RESUSCITATE Disposition: Telemetry, monitor for seizure activity Kyaw -daughter- [phone] [facility]- [phone] History Resident Physician Supervision Note: I was present with Dr. Jennings during the history and exam. I discussed the case with the resident and agree with the findings and plan as documented in the note. Any exceptions or clarifications are listed here. Pt seen and examined at bedside. Patient remains at baseline mental status which precludes meaningful hx. 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, no motor/sensory deficits, alert, normal mood/affect, oriented x 3 Assessment/Plan 81 y/o male h/o dementia, CKD, CAD s/p CABG, HF, HTN, HLD, atrial fibrillation currently w/ endocarditis under therapy w/ new onset seizure Seizure disorder, new - [employer], neurology consulted, input appreciated - EEG, MRI, CT head completed - continue keppra, ativan PRN - swallow study per neurology recommendations Hypokalemia - 3.1 s/p repletion - Recheck BMP in AM, increase PO supplementation to 40meq in AM Endocarditis (pulmonary valve) - continue rocephin/zosyn (would transition back to ampicillin as outpatient) Atrial fibrillation, rate controlled - continue carvedilol, metoprolol, coumadin Chronic congestive heart failure - continue Lasix, holding metolazone (would restart as outpatient) Dementia - continue donepezil, memantine, ropinirole, risperidone Depression - continue sertraline BPH - continue finasteride Sleep apnea - CPAP DNR Resident Tracking Resident Involvement: Resident Care Provided Care Provided: Adult Hospital Medicine
--- NOTE | 2017-03-21 14:53 | Progress Note ---
Subjective Date of Service: March 21, 2017. Subjective afebrile, no seizures noted. all cultures negative. repeat echo with pv mass Problem List Medical Problems: (1) Anemia Status: Acute (2) CHF (congestive heart failure) Status: Acute (3) Hypokalemia Status: Acute (4) New onset a-fib Status: Acute (5) Sepsis Status: Acute (6) Status epilepticus Status: Acute Objective Vital Signs Date Time Temp Pulse Resp B/P Pulse Ox O2 Delivery O2 Flow Rate FiO2 03/21/17 12:11 36.8 66 22 132/67 93 Nasal Cannula 4.0 03/21/17 12:00 95 Nasal Cannula 4.0 03/21/17 08:26 36.4 61 18 151/76 98 Room Air 4.0 03/21/17 08:00 94 Nasal Cannula 4.0 03/21/17 04:00 Nasal Cannula 4.0 03/21/17 03:17 36.8 50 20 146/74 93 Nasal Cannula 4.0 03/21/17 00:02 37.0 66 21 148/77 97 Nasal Cannula 4.0 03/21/17 00:01 Nasal Cannula 4.0 03/20/17 20:00 Nasal Cannula 4.0 03/20/17 19:12 36.8 63 21 144/76 95 Nasal Cannula 4.0 03/20/17 16:47 36.5 77 20 98 Room Air 100.0 03/20/17 16:00 97 Nasal Cannula 4.0 Laboratory Results Item Value Date Time Blood Culture - Final Complete 02/01/17 1815 Blood Enterococcus Faecalis#2 Blood Culture - Final Complete 02/01/17 1840 Blood Enterococcus Faecalis#2 Blood Culture - Preliminary Resulted 02/02/17 1440 Blood NO GROWTH TO DATE. Blood Culture - Preliminary Resulted 02/02/17 1442 Blood NO GROWTH TO DATE. C.difficile Toxin B Gene (PCR) - Final Complete 02/04/17 0550 Stool No C. difficile toxin B gene detected Blood Culture - Final Complete 02/02/17 1442 Blood NO GROWTH Blood Culture - Final Complete 02/02/17 1440 Blood NO GROWTH Blood Culture - Preliminary Resulted 03/19/17 1925 Blood NO GROWTH TO DATE. Blood Culture - Preliminary Resulted 03/19/17 1810 Blood NO GROWTH TO DATE. Urine Culture - Final Complete 03/19/17 1845 Urine,Catheterized NO GROWTH - LESS THAN 1,000 COLONIES/ML Last 24 Hours Test 03/20/17 16:45 03/21/17 07:45 03/21/17 14:42 Sodium Level 140 mmol/L 139 mmol/L Potassium Level 3.9 mmol/L 2.7 mmol/L Chloride Level 99 mmol/L 97 mmol/L Carbon Dioxide Level 31 mmol/L 32 mmol/L Anion Gap 10.0 mmol/L 10.0 mmol/L Blood Urea Nitrogen 15 mg/dl 14 mg/dl Creatinine 1.20 mg/dl 0.98 mg/dl Est Creatinine Clear Calc Drug Dose 56.6 ml/min 68.2 ml/min Estimated GFR () 64.9 82.9 Estimated GFR (Non- 56.0 71.5 BUN/Creatinine Ratio 12.6 13.9 Random Glucose 140 mg/dl 116 mg/dl Calcium Level 8.5 mg/dl 8.4 mg/dl Chemistry Specimen Hemolysis White Blood Count 9.97 K/uL Red Blood Count 3.61 M/uL Hemoglobin 10.0 g/dL Hematocrit 33.4 % Mean Corpuscular Volume 92.5 fL Mean Corpuscular Hemoglobin 27.7 pg Mean Corpuscular Hemoglobin Concent 29.9 g/dl Platelet Count 163 K/uL Mean Platelet Volume 8.4 fL Neutrophils (%) (Auto) 74.0 % Lymphocytes (%) (Auto) 13.7 % Monocytes (%) (Auto) 10.8 % Eosinophils (%) (Auto) 1.2 % Basophils (%) (Auto) 0.1 % Neutrophils # (Auto) 7.37 K/uL Lymphocytes # (Auto) 1.37 K/uL Monocytes # (Auto) 1.08 K/uL Eosinophils # (Auto) 0.12 K/uL Basophils # (Auto) 0.01 K/uL RDW Standard Deviation 60.6 fL RDW Coefficient of Variation 17.9 % Immature Granulocyte % (Auto) 0.2 % Immature Granulocyte # (Auto) 0.02 K/uL Prothrombin Time 29.8 SECONDS Prothromb Time International Ratio 2.7 Assessment and Plan (1) History of endocarditis Assessment & Plan: would change to amp and ctx as previously dosed, will need continued outpt follow up. family not interested in surgery previously
--- NOTE | 2017-03-21 15:19 | Neurology Progress Notes ---
Neurology Progress Note Date of Service March 21, 2017. Subjective Wes is a 81 year old male who has a H afib, dementia, parkinson's disease, CABG 2004, and a history of prostrate CA presents after seizure like activity. The first according to hospital note was witnessed by family at the SNF which was his entire body and had bitten his tongue during the episode no bowel or bladder incontinence. Then a second seizure in the ambulance and then a third in the ED which was tonic clonic like in nature and postictal confusion. He was given Keppra in the ED. According to the family he has no history of any seizure or seizure like activity. He did have a recent admission on January for pneumonia and UTI. 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 He is currently being treated with Zoysn and Rocepin but Dr Parks infectious disease. regimen which was confirmed on allscripts is ampicillin 2 G q 6 and Rocephin 1 G daily which he is receiving via PICC. There is no family in the room and he is not aware why he is in the hospital be he does know that he fell. he denies having any seizure activity.. He walks with a walker baseline and currently has a macario catheter. His daugther states he sees Dr Silva in [place] for his dementia and Parkinson's disease. Daughter is in the room and states she thinks he is doing OK today. He wants to go back to the facility. He ate his lunch today by himself. denies CP, SOB, abdominal pain, N , V, swallowing difficulties Objective Date Time Temp Pulse Resp B/P Pulse Ox O2 Delivery O2 Flow Rate FiO2 03/21/17 12:11 36.8 66 22 132/67 93 Nasal Cannula 4.0 03/21/17 12:00 95 Nasal Cannula 4.0 03/21/17 08:26 36.4 61 18 151/76 98 Room Air 4.0 03/21/17 08:00 94 Nasal Cannula 4.0 03/21/17 04:00 Nasal Cannula 4.0 03/21/17 03:17 36.8 50 20 146/74 93 Nasal Cannula 4.0 03/21/17 00:02 37.0 66 21 148/77 97 Nasal Cannula 4.0 03/21/17 00:01 Nasal Cannula 4.0 03/20/17 20:00 Nasal Cannula 4.0 03/20/17 19:12 36.8 63 21 144/76 95 Nasal Cannula 4.0 03/20/17 16:47 36.5 77 20 98 Room Air 100.0 03/20/17 16:00 97 Nasal Cannula 4.0 Last 24 Hours Test 03/20/17 16:45 03/21/17 07:45 03/21/17 14:42 Sodium Level 140 mmol/L 139 mmol/L Potassium Level 3.9 mmol/L 2.7 mmol/L Chloride Level 99 mmol/L 97 mmol/L Carbon Dioxide Level 31 mmol/L 32 mmol/L Anion Gap 10.0 mmol/L 10.0 mmol/L Blood Urea Nitrogen 15 mg/dl 14 mg/dl Creatinine 1.20 mg/dl 0.98 mg/dl Est Creatinine Clear Calc Drug Dose 56.6 ml/min 68.2 ml/min Estimated GFR () 64.9 82.9 Estimated GFR (Non- 56.0 71.5 BUN/Creatinine Ratio 12.6 13.9 Random Glucose 140 mg/dl 116 mg/dl Calcium Level 8.5 mg/dl 8.4 mg/dl Chemistry Specimen Hemolysis White Blood Count 9.97 K/uL Red Blood Count 3.61 M/uL Hemoglobin 10.0 g/dL Hematocrit 33.4 % Mean Corpuscular Volume 92.5 fL Mean Corpuscular Hemoglobin 27.7 pg Mean Corpuscular Hemoglobin Concent 29.9 g/dl Platelet Count 163 K/uL Mean Platelet Volume 8.4 fL Neutrophils (%) (Auto) 74.0 % Lymphocytes (%) (Auto) 13.7 % Monocytes (%) (Auto) 10.8 % Eosinophils (%) (Auto) 1.2 % Basophils (%) (Auto) 0.1 % Neutrophils # (Auto) 7.37 K/uL Lymphocytes # (Auto) 1.37 K/uL Monocytes # (Auto) 1.08 K/uL Eosinophils # (Auto) 0.12 K/uL Basophils # (Auto) 0.01 K/uL RDW Standard Deviation 60.6 fL RDW Coefficient of Variation 17.9 % Immature Granulocyte % (Auto) 0.2 % Immature Granulocyte # (Auto) 0.02 K/uL Prothrombin Time 29.8 SECONDS Prothromb Time International Ratio 2.7 Imaging: carotid doppler- There is no sonographic evidence of hemodynamically significant stenosis in the right or left carotid arterial system. Antegrade flow is shown in the vertebral arteries. Several of the cardiac pulsations appear irregular. Correlate clinically and with EKG for evidence of arrhythmia. EEG-This EEG is essentially normal during wakefulness without evidence for focal or generalized encephalopathy and without evidence for potentially epileptogenic activity. Exam: Physical Exam: Constitutional: appearance nourished, obese Ears, Nose, Mouth and Throat: mucous membranes moist, no injection and skin normal, eyes watering, decreased blink frequency, mask facies, right side of tongue laceration healing Cardiovascular: irregular irregular Respiratory: course breath sounds Musculoskeletal LE edema bilaterally Skin: no stigmata of neurocutaneous disease noted and normal and intact Eyes: extraocular muscles intact (EOMI) and pupils equal, round and reactive to light (PERRL) NEUROLOGIC EXAMINATION: Mental status: Alert and interactive unclear if answers are right but daughter in room states this is his baseline Cranial Nerves smile symmetric, tongue midline Coordination: finger to nose without bipass, reaching tremor and resting tremor, cogwheeling bilaterally Gait/Stance: Posture sitting in bedside chair Strength: 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 biceps triceps 4/5 bilaterally hip flex against gravity but not against resistance Current Inpatient Medications Medications (Trade) Dose Ordered Sig/María Route Start Time Stop Time Status Last Admin Dose Admin Acetaminophen (Tylenol Tab) 650 mg Q4H PRN PO 03/19/17 19:45 04/18/17 19:44 Future Hold Ondansetron HCl (Zofran Inj) 4 mg Q6H PRN IV 03/19/17 19:45 04/18/17 19:44 Lorazepam 1 mg 1 mg DAILY PRN IV 03/19/17 20:00 04/18/17 19:59 Piperacillin Sod/ Tazobactam Sod 3.375 gm/Dextrose 115 ml @ 28.75 mls/ hr Q8H IV 03/20/17 02:00 05/01/17 01:59 03/21/17 10:09 28.75 MLS/HR Levetiracetam 500 mg/Dextrose 105 ml @ 420 mls/hr Q12H IV 03/20/17 06:00 04/19/17 05:59 03/21/17 05:58 420 MLS/HR Furosemide 40 mg/ Syringe 4 ml @ 4 mls/min DAILY IV 03/20/17 09:00 04/19/17 08:59 03/21/17 08:25 4 MLS/MIN Ceftriaxone Sodium/Dextrose (Rocephin Inj/ Dextrose Add-[place] 50ML) 50 ml @ 100 mls/hr Q24H IV 03/19/17 22:00 04/30/17 21:59 03/20/17 21:49 100 MLS/HR Lorazepam (Ativan Inj) 1 mg DAILY IV 03/20/17 09:00 04/19/17 08:59 Metoprolol Tartrate (Lopressor Iv) 5 mg Q5M PRN IV 03/19/17 20:00 04/18/17 19:59 Warfarin Sodium (Coumadin Tab) 5 mg DAILY@16 PO 03/20/17 16:00 04/19/17 15:59 03/20/17 16:21 5 MG Piperacillin Sod/ Tazobactam Sod (Consult) 1 ea UD PRN N/A 03/19/17 20:45 04/18/17 20:44 Gadobutrol (Gadavist) 11 mmol UD PRN IV 03/19/17 22:15 03/23/17 22:14 Acetaminophen (Tylenol Tab) 1,000 mg TID PO 03/20/17 21:00 04/19/17 20:59 03/21/17 13:58 1,000 MG Amlodipine Besylate (Norvasc Tab) 10 mg QAM PO 03/21/17 09:00 04/20/17 08:59 03/21/17 07:36 10 MG Aspirin (Ecotrin Tab) 81 mg QAM PO 03/21/17 09:00 04/20/17 08:59 03/21/17 07:37 81 MG Carvedilol (Coreg Tab) 6.25 mg BID PO 03/20/17 21:00 04/19/17 20:59 03/21/17 07:37 6.25 MG Donepezil HCl (Aricept Tab) 10 mg QPM PO 03/20/17 21:00 04/19/17 20:59 03/20/17 21:12 10 MG Ferrous Gluconate (Ferrous Gluconate Tab) 324 mg DAILY PO 03/21/17 09:00 04/20/17 08:59 03/21/17 07:37 324 MG Finasteride (Proscar Tab) 5 mg QPM PO 03/20/17 21:00 04/19/17 20:59 03/20/17 21:10 5 MG Lisinopril (Zestril Tab) 40 mg QAM PO 03/21/17 09:00 04/20/17 08:59 03/21/17 07:35 40 MG Potassium Chloride (Klor-Con Tab) 20 meq TID PO 03/20/17 21:00 04/19/17 20:59 03/21/17 13:56 20 MEQ Risperidone (Risperdal Tab) 0.25 mg BID PO 03/20/17 21:00 04/19/17 20:59 03/21/17 07:38 0.25 MG Sertraline HCl (Zoloft Tab) 100 mg QAM PO 03/21/17 09:00 04/20/17 08:59 03/21/17 07:35 100 MG Simvastatin (Zocor Tab) 20 mg DAILY PO 03/21/17 09:00 04/20/17 08:59 03/21/17 07:35 20 MG Miscellaneous Information (Order Awaiting Action) 1 ea QS N/A 03/21/17 00:00 04/20/17 00:00 Oxycodone HCl (Roxicodone Immediate Rel Tab) 5 mg Q8 PO 03/20/17 22:00 04/19/17 21:59 03/21/17 13:58 5 MG Ropinirole HCl (Requip Tab) 0.5 mg TID PO 03/20/17 21:00 04/19/17 20:59 03/21/17 13:56 0.5 MG Heparin Sodium (Porcine) (Heparin 10 Unit/ ml 5 ml Flush) 5 ml PRN PRN FLUSH 03/21/17 05:30 04/20/17 05:29 Impression 81 year old male extensive PMH with new onset seizure disorder Plan 1. MRI brain with and without contrast no lesions or structural issues 2. Keppra 500 mg q 12 hours for now may need to increase 3. EEG no seizure activity 4. TTE large pulmonic valve vegatation but slightly smaller than previous imaging 5. ID Rocephin and Ampicillin does have profile for possible seizure but not common. 6. macario catheter in place chronic macario 7. 3 witnessed seizures with biting of tongue and confusion. will need Keppra for rest of life. watch for mood changes 8. Shira, neurology [place] treating patient with Namenda XR 28 mg pm and requip .50 mg TID both are on hold currently 9. ok to eat but needs to be in upright position and aid available. may be beneficial to have formal swallowing study 10. PT/OT for discharge needs 11. coumadin -continue to monitor currently therapeutic 2.7 INR 12. carotid doppler- no significant stenosis I have seen and discussed above patient with Dr Shantelle Hernandez, neurology Pt seen and examined, awake alert. NO further sz. New onset sz. Continue Keppra. Given the concerning setting (recent bacterial endocarditis, valvular vegetation) would like to see pt in follow-up within 1 week post discharge. If pt had any new neurologic symptoms I would have a low threshold to reimage with MRI. The pt should also make continued follow-up with Dr. Jacob. FAUSTO Hernandez MD
[2017-03-21 15:21] LABS: BUN/CREATININE RATIO 14.2 (10-20); CREATININE 1.1 mg/dl (0.60-1.40); POTASSIUM 3.1 mmol/L (3.5-5.1)
[2017-03-21] MEDS: WARFARIN SOD 5 MG TAB PO SCH (16:22)
[2017-03-21] MEDS: FINASTERIDE 5 MG TAB PO SCH (20:30)
[2017-03-21] MEDS: DONEPEZIL HCL 5 MG TAB PO SCH (20:30)
[2017-03-21] MEDS: CEFTRIAXONE SOD INJ 1 GM in DEXTROSE 5% ADD-VANTAGE 50ML 50 ML IV SCH (21:43)
[2017-03-22 00:01] VITALS: BP 130/73; PULSE 59; TEMP 37; O2SAT 95
[2017-03-22] MEDS: PIPERACILL/TAZOBAC IV 3.375 GM in DEXTROSE 5% 100ML 100 ML IV SCH ×2 (02:19→10:41)
[2017-03-22 03:40] VITALS: BP 129/72; PULSE 60; TEMP 36.9; O2SAT 98
[2017-03-22 05:48] LABS: BASO % 0.3 %; BASO ABS # 0.02 K/uL (0-0.2); COMPLETE YES; HEMATOCRIT 30.7 % (42-52); IG% 0.1 %; LYMPH % 18.6 %; LYMPH ABS # 1.43 K/uL (1.2-3.4); MEAN CELL VOLUME 91.6 fL (80-100); MEAN CORPUSCULAR HEMOGLOBIN 26.9 pg (25-34); MEAN CORPUSCULAR HGB CONC 29.3 g/dl (32-36); MEAN PLATELET VOLUME 8.9 fL (7.4-10.4); MONO % 9.4 %; NEUT % 69.6 %; PLATELET COUNT 160 K/uL (130-400); RED BLOOD COUNT 3.35 M/uL (4.7-6.1); WHITE BLOOD COUNT 7.67 K/uL (4.8-10.8)
[2017-03-22 05:57] LABS: PROTHROMBIN TIME (PATIENT) 33.8 SECONDS (9.0-12.0)
[2017-03-22] MEDS: OXYCODONE HCL IR 5 MG TAB (IMMEDIATE RELEASE) PO SCH ×2 (05:59→14:49)
[2017-03-22 06:25] LABS: CALCIUM 7.8 mg/dl (8.5-10.1); CREATININE 0.98 mg/dl (0.60-1.40); POTASSIUM 2.9 mmol/L (3.5-5.1)
[2017-03-22] MEDS: LEVETIRACETAM IV 500 MG in DEXTROSE 5% 100ML 100 ML IV SCH (06:48)
[2017-03-22] MEDS: NAMENDA XR - ORDER AWAITING ACTION SCH ×2 (08:00)
[2017-03-22 08:09] VITALS: BP 137/77; PULSE 65; TEMP 37; O2SAT 98
[2017-03-22] MEDS: ASPIRIN 81 MG ECTAB PO SCH (08:30)
[2017-03-22] MEDS: CARVEDILOL 6.25 MG TAB PO SCH (08:30)
[2017-03-22] MEDS: AMLODIPINE BESYLATE 5 MG TAB PO SCH (08:31)
[2017-03-22] MEDS: SIMVASTATIN 20 MG TAB PO SCH (08:31)
[2017-03-22] MEDS: SERTRALINE HCL 100 MG TAB PO SCH (08:31)
[2017-03-22] MEDS: ACETAMINOPHEN 500 MG TAB PO SCH ×2 (08:32→14:50)
[2017-03-22] MEDS: RISPERIDONE 0.5 MG TAB PO SCH (08:32)
[2017-03-22] MEDS: FERROUS GLUCONATE 324 MG TAB PO SCH (08:33)
[2017-03-22] MEDS: ROPINIROLE HCL 0.25 MG TAB PO SCH ×2 (08:33→14:49)
[2017-03-22] MEDS: POTASSIUM CHLR 10 MEQ / WTR 10 MEQ in PREMIXED WATER 100 ML IV SCH ×2 (08:34→10:03)
[2017-03-22] MEDS: LISINOPRIL 40 MG TAB PO SCH (08:34)
[2017-03-22] MEDS: FUROSEMIDE INJ 40 MG in SYRINGE 0 ML IV SCH (08:35)
[2017-03-22] MEDS ORDERED: POTASSIUM CHLORIDE 20 MEQ TABCR PO SCH (09:00)
[2017-03-22] MEDS: LORAZEPAM 2 MG/ML 1 ML VIAL IV SCH (09:00)
[2017-03-22] MEDS ORDERED: AMPICILLIN 2000 MG IV SCH (11:00)
[2017-03-22 11:31] VITALS: BP 137/86; PULSE 60; TEMP 37; O2SAT 100
[2017-03-22] MEDS ORDERED: AMPICILLIN IV 2,000 MG in SODIUM CHLOR 0.9% AD-VAN 100ML 100 ML IV SCH (12:00)
[2017-03-22 12:21] LABS: BUN/CREATININE RATIO 13.4 (10-20); CREATININE 1.1 mg/dl (0.60-1.40); POTASSIUM 3.1 mmol/L (3.5-5.1)
[2017-03-22 12:27] LABS: CALCIUM 8.5 mg/dl (8.5-10.1)
--- NOTE | 2017-03-22 12:44 | Discharge Instructions ---
Discharge Instructions Date of Service March 22, 2017. Admission Reason for Admission: Hx Of Endocarditis; New Onset Seizure Discharge Discharge Diagnosis / Problem: New onset seizures Discharge Goals Goal(s): Decrease discomfort, Improve function Activity Recommendations Activity Limitations: resume your previous activity . 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 Received loading dose of Keppra while in the ER . New onset seizures: - Head CT : No acute intracranial abnormality. Atrophy and microvascular ischemic changes. - MRI head:No acute intracranial abnormality. T2 hyperintensity seen within the periventricular and subcortical white matter is nonspecific but favors moderate microvascular ischemic change. This remains unchanged. - EEG no new changes - Continue Keppra 500 mg twice a day PO - Ativan as scheduled - Carotid US- negative for stenosis - Please refer to speech recommendations : 1. MOIST dental soft diet 2. Aspiration precautions: NO STRAWS; FULLY UPRIGHT for all meals--preferably OOB to chair; encourage SMALL sips/bites instead of gulping; alternate consistencies; SUPERVISE at meals 3. Oral hygiene to minimize oral bacteria patient IS ASPIRATING in saliva/secretions. [place] ALL surfaces of mouth with soft toothbrush and toothpaste PRIOR TO oral intake in the morning, after all meals and before going to bed in evening. Infectious endocarditis of pulmonary valve: - Continue Rocephin and ampicillin as previously scheduled - Echo: * There is a large vegetation or mass on the pulmonic valve. * Compared to a study from 02/04/2017, the pulmonic vegetation is slightly smaller. * No change in valve function Hypokalemia: - 20 meq TID as scheduled - Recheck BMP tomorrow, monitor K level Atrial fibrillation: Rate control with carvedilol, metoprolol - Continue Coumadin for anti-coagulation INR today at 3, had been getting 5 mg daily for 2 days. today' s dose had been held Please check INR and adjust accordingly Chronic congestive heart failure: - Continue Lasix as scheduled -Metolazone currently held , restart based on clinical picture, Dementia: - Continue donepezil, memantine, ropinirole, Risperdal - Ativan Depression: - Continue Zoloft BPH: -Continue finasteride Sleep apnea: - CPAP Follow up with Neurology Dr. Powell in about 1 week and follow up with Dr. Jacob Follow up with PCP in 1 week Current Hospital Diet Patient's current hospital diet: AHA Diet (Heart Healthy), Low Sodium Diet (2gm Na) Discharge Diet Recommended Diet: AHA Diet (Heart Healthy), Low Sodium Diet (2gm Na) Pending Studies Studies pending at discharge: no Laboratory Results Hemoglobin A1c Test 03/20/17 07:03 Range/Units Estimated Average Glucose 114 mg/dl Hemoglobin A1c 5.6 4.5-5.6 % Medical Emergencies . Who to Call and When: Medical Emergencies: If at any time you feel your situation is an emergency, please call 911 immediately. . Non-Emergent Contact Non-Emergency issues call your: Primary Care Provider . . "Provider Documentation" section prepared by Radha Jennings. . VTE Core Measure Inpt VTE Proph given/why not?: Warfarin (Coumadin)
[2017-03-22] MEDS ORDERED: LEVE500T13 PO (14:07)
[2017-03-22 14:55] VITALS: BP 137/86; PULSE 60; TEMP 37; O2SAT 100
[2017-03-22] MEDS ORDERED: WARFARIN SOD 3 MG TAB PO SCH (16:00)
[2017-03-22] MEDS ORDERED: WARFARIN PO SCH ×2 (16:00)
--- NOTE | 2017-03-22 18:29 | Family Medicine Progress Note ---
Progress Note Date of Service March 22, 2017. Subjective Pt seen and examined at bedside. No acute events overnight. Patient presently reports feeling well without complaints. Per family, edema is chronic and stable. Reports no CP/SOB, TODD, vision/hearing changes. Family concerned re: mild delirious behavior including 'deleting channels on TV ' and general increased confusion, though h/o similar when out of normal setting previously, and has been stable throughout present admission. Reassurance provided, precautions reviewed and f/u encouraged. Objective Physical Exam General Appearance: WD/WN, no apparent distress Neck: supple, no adenopathy Respiratory/Chest: chest non-tender, lungs clear, normal breath sounds, no respiratory distress Cardiovascular: regular rate, rhythm, no murmur, + pertinent finding (b/l 1+ pitting edema) Abdomen: normal bowel sounds, non tender, soft, no organomegaly Assessment and Plan 81 y/o male h/o dementia, CKD, CAD s/p CABG, HF, HTN, HLD, atrial fibrillation currently w/ endocarditis under therapy w/ new onset seizure Seizure disorder, new - [employer], neurology consulted, input appreciated - EEG, MRI, CT head completed - continue keppra, ativan PRN Hypokalemia - improved s/p repletion - Recheck BMP in AM as outpatient (chronic problem per daughter, managed outpatient), increase PO supplementation to 40meq in AM Endocarditis (pulmonary valve) - continue rocephin/zosyn (w/ transition back to ampicillin as outpatient) Atrial fibrillation, rate controlled - continue carvedilol, metoprolol, coumadin (modulate coumadin 2/2 increased INR and f/u OP) Chronic congestive heart failure - continue Lasix, holding metolazone (would restart as outpatient) Dementia - continue donepezil, memantine, ropinirole, risperidone Depression - continue sertraline BPH - continue finasteride Sleep apnea - CPAP
--- NOTE | 2017-03-22 19:20 | Discharge Summary ---
Discharge Summary Date of Service March 22, 2017. (Radha Jennings MD) Discharge Summary Admission Date: March 19, 2017 at 19:53 Discharge Date: March 22, 2017 Discharge Disposition: assisted facility Principal Diagnosis: New onset Seizures Problems/Secondary Diagnoses: Infective endocarditis Immunizations: Have You Had Influenza Vaccine: Yes Influenza Vaccine Date: Aug 07, 2012 History of Tetanus Vaccine?: Unknown History of Pneumococcal: No History of Hepatitis B Vaccine: Unknown Consultations: Neurology. ID (Radha Jennings MD) Medication Reconciliation New Medications: Levetiracetam (Keppra) 500 Mg Tab 1 TAB PO BID for 30 Days, #60 TAB 5 Refills Continued Medications: Acetaminophen (Tylenol) 500 Mg Tab 1000 MG PO TID, TAB Amlodipine Besylate (Amlodipine Besylate) 5 Mg Tab 10 MG PO QAM for 30 Days, TAB Ampicillin Sod (Ampicillin Sodium) 2,000 Mg Inj 2 GM IV Q6 for 54 Days Aspirin Enteric Coated (Ecotrin Or Generic) 81 Mg Tab 81 MG PO QAM, TAB Carvedilol (Carvedilol) 6.25 Mg Tab 6.25 MG PO BID for 30 Days, TAB Ceftriaxone Sodium (Rocephin) 1 Gm Inj 1 GM IV DAILY for 54 Days, VIAL Donepezil HCl (Aricept) 5 Mg Tab 10 MG PO QPM Ferrous Gluconate (Ferrous Gluconate) 324 Mg Tab 324 MG PO DAILY @ 1000 not with other meds and on an empty stomach Finasteride (Proscar) 5 Mg Tab 5 MG PO QPM, TAB Furosemide (Lasix) 40 Mg Tab 40 MG PO DAILY AT 1400, TAB Lisinopril (Lisinopril) 40 Mg Tab 40 MG PO QAM Lorazepam (Ativan) 1 Mg Tab 1 MG PO DAILY AT 1600, TAB Memantine Hcl (Namenda Xr) 28 Mg Cap 28 MG PO QPM Metolazone (Metolazone) 2.5 Mg Tab 2.5 MG PO MoWeFr@0900 for 30 Days, TAB Multivitamin (Multivitamin) Tab 1 TAB PO QAM, 0 Refills Nitroglycerin (Nitrostat) 0.4 Mg Tab 0.4 MG UT PRN PRN for Chest Pain, BTL TAKE EVERY 5 MIN X 3 DOSES. Oxycodone Hcl (Oxycodone Hcl) 5 Mg Cap 5 MG PO Q8 for 30 Days, #90 CAP Potassium Chloride Microencaps (Potassium Chloride Cr) 20 Meq Tab 20 MEQ PO TID Risperidone (Risperdal) 0.25 Mg Tab 0.25 MG PO BID, TAB Ropinirole (Requip) 0.25 Mg Tab 2 TABS PO TID [id number], TAB Sertraline Hcl (Zoloft) 100 Mg Tab 100 MG PO QAM, TAB Simvastatin (Zocor) 20 Mg Tab 20 MG PO DAILY AT 1600, 0 Refills Warfarin Sodium (Coumadin) 2 Mg Tab 2 MG PO QPM AT 2100, TAB TAKES 2 DAYS THEN 3 MG ON 3RD DAY. Warfarin Sodium (Coumadin) 3 Mg Tab 3 MG PO QPM AT 2100, TAB TAKES EVERY 3RD DAY, 2 MG FOR 2 DAYS. Discharge Exam No acute events overnight. No CP/Sob/ fevers/chills Review of Systems: Constitutional: No fever ENT: No hearing loss Respiratory: No cough, No sputum Cardiovascular: No chest pain Abdomen: No nausea, No pain Musculoskeletal: No joint pain Genitourinary - Female: No dysuria, No urinary frequency Genitourinary - Male: No dysuria, No hematuria Endocrine: No fatigue Physical Exam: General Appearance: WD/WN, no apparent distress Eyes: normal inspection ENT: hearing grossly normal Neck: supple Respiratory/Chest: chest non-tender, lungs clear, no respiratory distress Cardiovascular: regular rate, rhythm Abdomen / GI: normal bowel sounds, non tender, soft Extremities: + pedal edema Neurologic/Psychiatric: alert, oriented x 3 Skin: normal color (Radha Jennings MD) Hospital Course This is an 81 yo m that is presenting to us after a seizure like activity. The first was witness by family at the SNF and according to the family it was the entire body and had bitten his tongue during the episode. It was self limiting. no bowel or bladder in continence. He also had another seizure like episode in the ambulance and a third episode in the ED. This was observed to be tonic clonic like in nature and postictal confusion was noted. He did receive Keppra in the ED. According to the family this is a new seizure and he has no history of any seizure or seizure like activity. He does have a recent admission on January for PNA and UTI. He was found to have a vegetation on the pulmonic valve and was treated for endocarditis accordingly. He was found to have positive blood cultures for E. Faecalis. He has ongoing treatment currently in the outpt setting with Dr Parks and the regimen which was confirmed on allscripts is ampicillin 2 G q 6 and Rocephin 1 G daily which he is receiving via PICC. The assumed source is from the UTI. He has a significant cardiac history and is s/p CABG 2004. He is also being treated for dementia with multiple agents. He does have a history of prostate cancer however accordingly to the family the decision was made to defer treatment because it was "not a fast growing prostate cancer". Currently being treated with Coumadin for A fibb. New onset seizures: - Head CT : No acute intracranial abnormality. Atrophy and microvascular ischemic changes. - MRI head:No acute intracranial abnormality. T2 hyperintensity seen within the periventricular and subcortical white matter is nonspecific but favors moderate microvascular ischemic change. This remains unchanged. - EEG no new changes - Carotid US- negative for stenosis - Continue Keppra 500 mg twice a day - Speech consult- recommendations: 1. MOIST dental soft diet 2. Aspiration precautions: NO STRAWS; FULLY UPRIGHT for all meals--preferably OOB to chair; encourage SMALL sips/bites instead of gulping; alternate consistencies; SUPERVISE at meals 3. Oral hygiene to minimize oral bacteria patient IS ASPIRATING in saliva/secretions. [place] ALL surfaces of mouth with soft toothbrush and toothpaste PRIOR TO oral intake in the morning, after all meals and before going to bed in evening. Infectious endocarditis of pulmonary valve: - Continue Rocephin and ampicillin as scheduled - ID consult recommended to continue therapy a scheduled for a total of 8 weeks - Echo: * There is a large vegetation or mass on the pulmonic valve. * Compared to a study from 02/04/2017, the pulmonic vegetation is slightly smaller. * No change in valve function Hypokalemia: - 20 meq TID as scheduled - Recheck BMP tomorrow, monitor K level Atrial fibrillation: Rate control with carvedilol, metoprolol - Continue Coumadin for anti-coagulation - Coumadin was held today as INR was 3. recheck INR and adjust Coumadin dose Chronic congestive heart failure: - Continue Lasix as scheduled -Metolazone currently held due to hypokalemia. restart based Dementia: - Continue donepezil, memantine, ropinirole, Risperdal - Ativan Depression: - Continue Zoloft BPH: -Continue finasteride Sleep apnea: - CPAP Follow up with PCP in about a week. follow up with Neurology in [address] Cecil Jonesum: Rechecked with ID OP notes about Rocephin dosing and it is supposed to be 2g daily Total Time Spent: Greater than 30 minutes This includes examination of the patient, discharge planning, medication reconciliation, and communication with other providers. (Radha Jennings MD) Discharge Instructions Please refer to the electronic Patient Visit Report (Discharge Instructions) for additional information. (Radha Jennings MD) Follow-Up with neurology in 1 week. with PCP in 1 week (Radha Jennings MD) Resident Tracking Resident Involvement: Resident Care Provided Care Provided: [facility] (Radha Jennings MD) Resident Tracking Resident Involvement: Resident Care Provided Care Provided: [facility] Medicine (Radha Jennings MD) Assessment/Plan Resident Physician Supervision Note: I was present with Dr. Jennings during the history and exam. I discussed the case with the resident and agree with the findings and plan as documented in the note. Any exceptions or clarifications are listed here. Documented By: Kenneth Belcher For full attending exam and attestation, please see accompanying note from day of discharge. In brief: Mr. Hill is an 81 y/o male h/o dementia, CKD, CAD s/p CABG, HF, HTN, HLD, atrial fibrillation currently w/ endocarditis under therapy w/ new onset seizure Seizure disorder, new - [employer], neurology consulted - EEG, MRI, CT head completed - continue keppra, ativan PRN Hypokalemia - 3.1 s/p repletion but with repeated drop 2/2 diuretics - Recheck BMP as outpatient and titrate PO supplementation as needed Endocarditis (pulmonary valve) - continue rocephin/ampicillin as outpatient Atrial fibrillation, rate controlled - continue carvedilol, metoprolol, coumadin Chronic congestive heart failure - continue Lasix, holding metolazone (would restart as outpatient) Dementia - continue donepezil, memantine, ropinirole, risperidone Depression - continue sertraline BPH - continue finasteride Sleep apnea - CPAP DNR (Kenneth Belcher MD)
[2017-04-11] MEDS ORDERED: METO2.5T PO (13:40)
[2017-04-11] MEDS ORDERED: APIX1TAB3 PO (13:40)
[2017-04-11] MEDS ORDERED: SACC250C PO (13:42)
[2017-04-11] MEDS ORDERED: CEFT1INJ57 IV (13:46)
== END 2017-03-22 16:11 | DRG 100 ==
LOC: ENRESERVTM → ENRESERVDT → EDBD 16:54 → C.EDC 16:55 → C.2T 19:53
PROVIDERS: ADMIT Hospitalist; ATTEND Family Medicine
DX: R56.9 Unspecified convulsions (principal); I33.0 Acute and subacute infective endocarditis; I50.22 Chronic systolic (congestive) heart failure; I13.0 Hypertensive heart and chronic kidney disease with heart failure and stage 1 through stage 4 chronic kidney disease, or unspecified chronic kidney disease; E87.6 Hypokalemia; I48.91 Unspecified atrial fibrillation; N40.0 Benign prostatic hyperplasia without lower urinary tract symptoms; G47.00 Insomnia, unspecified; G30.9 Alzheimer's disease, unspecified; F41.9 Anxiety disorder, unspecified; G47.30 Sleep apnea, unspecified; N18.3 Chronic kidney disease, stage 3 (moderate); M19.90 Unspecified osteoarthritis, unspecified site; D63.1 Anemia in chronic kidney disease; I25.10 Atherosclerotic heart disease of native coronary artery without angina pectoris; G20 Parkinson's disease; E78.5 Hyperlipidemia, unspecified; F32.9 Major depressive disorder, single episode, unspecified; F01.50 Vascular dementia, unspecified severity, without behavioral disturbance, psychotic disturbance, mood disturbance, and anxiety; R73.01 Impaired fasting glucose; E78.00 Pure hypercholesterolemia, unspecified; I34.0 Nonrheumatic mitral (valve) insufficiency; Z66 Do not resuscitate; Z95.5 Presence of coronary angioplasty implant and graft; Z95.1 Presence of aortocoronary bypass graft; Z85.46 Personal history of malignant neoplasm of prostate; Z79.82 Long term (current) use of aspirin; Z99.89 Dependence on other enabling machines and devices; Z79.01 Long term (current) use of anticoagulants; Z79.899 Other long term (current) drug therapy; Z79.891 Long term (current) use of opiate analgesic

== ENCOUNTER → 2017-04-11 | Day surgery (SDC) | payer OTHER, BC ==
[~2017-04-11] VITALS: Ht 175.3 cm; Wt 110.0 kg
[~2017-04-11] MED LIST changes: +APIX1TAB3 PO; +CEFT1INJ57 IV; -CEFT1INJ6 IV; +LEVE500T13 PO; +METO2.5T PO; +SACC250C PO
[2017-04-11 13:46] VITALS: BP 142/83; PULSE 55; TEMP 36.7; O2SAT 96; Ht 175.3 cm; Wt 110.0 kg
== END | disposition home or self-care (01) ==
LOC: C.MTU 13:07
PROVIDERS: ATTEND Internal Medicine Infectious Disease
DX: Z45.2 Encounter for adjustment and management of vascular access device (principal)